=== PATIENT | female | born 1955 | race Caucasian/White ===

== ENCOUNTER → 2018-08-15 | Outpatient (CLI) | payer MEDICARE, OTHER ==
[~2018-08-15] MED LIST: ACET650SUP PR; ACIDOPHILUS1 EAC1 PO; ALBU90I INH; ASCO500 PO; ASPI325; BUME2 PO; BUPR150T2 PO; CEPH500 PO; CLOP75 PO; CYAN1000 PO; DULO60 PO; Diclofenac Pota50 MG PO; ESCI20 PO; FURO20; FURO20 PO; FURO40; HEPARIN SQ; HYDACE10 PO; HYDACE5; HYDACE5 PO; HYDCHL25; IBUP800; LEVSOD100 PO; LEVSOD125 PO; LIDO5TP TOP; LORA1 PO; Lasix20 MG PO; METO100ER PO; MISO200 PO; MOMENI; MONT10T PO; MULVITA; Norco 10-325 T1 EACH PO; OXAP600 PO; PANT40 PO; POTCHL20ER; POTCHL20ER PO; RXSULTRIDS PO; SULTRIDS PO; TETR250 PO; VARE1 PO; VIBERZI75 MG PO; VITS
== END | disposition home or self-care (01) ==
LOC: LAB SHORT 13:45 → LAB 13:45 → LAB FUT 07-23 15:30
DX: K52.9 Noninfective gastroenteritis and colitis, unspecified (principal)
CPT/HCPCS: 87493

== ENCOUNTER → 2018-08-16 | Outpatient (CLI) | payer MEDICARE, OTHER | END | disposition home or self-care (01) | LOC: LAB SHORT 18:00 → LAB 18:00 | DX: K52.9 Noninfective gastroenteritis and colitis, unspecified (principal) | CPT/HCPCS: 87015; 87045; 87046; 87205; 87899 ==

== ENCOUNTER → 2018-08-22 | Outpatient (CLI) | payer MEDICARE, OTHER | END | disposition home or self-care (01) | LOC: LAB 09:00 → LAB SHORT 09:00 | DX: K52.9 Noninfective gastroenteritis and colitis, unspecified (principal) | CPT/HCPCS: 87177; 87209 ==

== ENCOUNTER 2019-03-27 16:17 | Observation (INO) | payer MEDICARE, OTHER ==
[~2019-03-27] VITALS: Ht 162.6 cm; Wt 142.2 kg
[2019-03-27 17:09] LABS: BASOPHILS ABSOLUTE AUTO 0.02 K/mm3 (0.00-0.23); BASOPHILS PERCENT AUTO 0 % (0-2); EOSINOPHILS ABSOLUTE AUTO 0.15 K/mm3 (0.00-0.68); EOSINOPHILS PERCENT AUTO 3 % (0-6); Hematocrit 44.7 % (33.0-51.0); Hemoglobin 13.4 g/dL (11.5-16.0); IMMATURE GRAN ABSOLUTE AUTO 0.05 K/mm3 (0.00-0.10); IMMATURE GRAN PERCENT AUTO 1 % (0-1); LYMPHOCYTES ABSOLUTE AUTO 0.24 K/mm3 (0.84-5.20); LYMPHOCYTES PERCENT AUTO 4 % (21-46); MONOCYTES ABSOLUTE AUTO 0.22 K/mm3 (0.16-1.47); MONOCYTES PERCENT AUTO 4 % (4-13); Mean Corpuscular HGB 28.3 pg (26.0-34.0); Mean Corpuscular Volume 94 fL (80-100); Mean Platelet Volume 11.9 fL (9.1-12.4); NEUTROPHILS PERCENT AUTO 89 % (41-73); Platelet Count 158 K/mm3 (150-400); RDW Coefficient Variation 18.9 % (11.7-14.2); RDW Standard Deviation 65.8 fL (35.1-46.3); Red Blood Cell Count 4.74 M/mm3 (3.80-5.20); White Blood Cell Count 5.98 K/mm3 (4.00-11.30)
[2019-03-27 17:37] LABS: Albumin, Blood 2.6 g/dL (3.4-5.0); Albumin/Globulin Ratio 0.6 (0.8-1.8); Bun/Creatinine Ratio 16.8 (12.0-20.0); Calcium, Blood 7.9 mg/dL (8.5-10.1); Creatinine, Blood 1.25 mg/dL (0.40-1.00); Globulin, Blood 4.4 g/dL (2.2-4.0)
[2019-03-27 18:01] LABS: Source, Urine Catheter
[2019-03-27 18:07] LABS: Bilirubin, Urine Neg (Neg); Blood, Urine 1+ (Neg); Glucose Qualitative, Urine Neg (Neg); Ketones, Urine Neg (Neg); Leukocyte Esterase, Urine 3+ (Neg); Nitrite, Urine Neg (Neg); Protein, Urine 1+ (Neg); Urobilinogen, Urine 1+ (Normal); pH, Urine 6.5 (5.0-8.0)
[2019-03-27 18:15] LABS: Appearance, Urine Clear (Clear); Color, Urine Yellow (P-Yellow); Squamous Epithelial Cells Mod /hpf (Few); White Blood Cells, Urine 50-100 /hpf (0-5)
[2019-03-27 18:16] LABS: Bacteria Few /hpf
[2019-03-27] MEDS ORDERED: Silvadene20 GM TOP (21:39)
[2019-03-28 05:23] LABS: BASOPHILS ABSOLUTE AUTO 0.02 K/mm3 (0.00-0.23); BASOPHILS PERCENT AUTO 0 % (0-2); EOSINOPHILS ABSOLUTE AUTO 0.38 K/mm3 (0.00-0.68); EOSINOPHILS PERCENT AUTO 9 % (0-6); Hematocrit 40.9 % (33.0-51.0); IMMATURE GRAN ABSOLUTE AUTO 0.03 K/mm3 (0.00-0.10); IMMATURE GRAN PERCENT AUTO 1 % (0-1); LYMPHOCYTES ABSOLUTE AUTO 0.24 K/mm3 (0.84-5.20); LYMPHOCYTES PERCENT AUTO 5 % (21-46); MONOCYTES ABSOLUTE AUTO 0.24 K/mm3 (0.16-1.47); MONOCYTES PERCENT AUTO 5 % (4-13); Mean Corpuscular HGB Conc 29.3 g/dL (31.5-36.5); Mean Corpuscular Volume 96 fL (80-100); Mean Platelet Volume 12.4 fL (9.1-12.4); NEUTROPHILS ABSOLUTE AUTO 3.56 K/mm3 (1.96-9.15); NEUTROPHILS PERCENT AUTO 80 % (41-73); Platelet Count 152 K/mm3 (150-400); RDW Standard Deviation 67.4 fL (35.1-46.3); Red Blood Cell Count 4.28 M/mm3 (3.80-5.20); White Blood Cell Count 4.47 K/mm3 (4.00-11.30)
[2019-03-28 05:32] LABS: Bun/Creatinine Ratio 20.2 (12.0-20.0); Calcium, Blood 7.7 mg/dL (8.5-10.1); Creatinine, Blood 1.09 mg/dL (0.40-1.00); Potassium, Blood 4.6 mmol/L (3.5-5.5)
--- NOTE | 2019-03-28 06:44 | NUR ---
SHIFT SUMMARY PT ARRIVED TO ROOM APPROX 2100. CASTRO DRAINING. WORE CPAP WITH 2-3L O2 BLED IN. C/O PAIN IN LEGS X1 AND MEDICATED PER EMAR. SHE WAS ABLE TO SLEEP T/O NIGHT. CALL LIGHT IN REACH.
[2019-03-28] MEDS ORDERED: ALBU90OI6 INH (11:37)
--- NOTE | 2019-03-28 13:35 | NUR ---
DISCHARGE NOTE PT DISCHARGED VIA W/C WITH [facility] TO HOME. IV DISCONTINUED INTACT. PT VERBALIZED UNDERSTANDING OF DISCHARGE INSTRUCTIONS AND IMPORTANCE OF FOLLOWING UP WITH HER PCP.
== END 2019-03-28 13:35 | disposition home or self-care (01) ==
LOC: ER 16:17 → MEDS 16:18 → ENPENDDIS 03-28 10:30 → MEDS 03-28 13:35
PROVIDERS: Internal Medicine; ADMIT Hospitalist
DX: L25.9 Unspecified contact dermatitis, unspecified cause (principal); E11.9 Type 2 diabetes mellitus without complications; J44.9 Chronic obstructive pulmonary disease, unspecified; I11.0 Hypertensive heart disease with heart failure; I50.30 Unspecified diastolic (congestive) heart failure; E03.9 Hypothyroidism, unspecified; F17.210 Nicotine dependence, cigarettes, uncomplicated; E66.01 Morbid (severe) obesity due to excess calories; Z68.43 Body mass index [BMI] 50.0-59.9, adult; Z79.82 Long term (current) use of aspirin; Z79.51 Long term (current) use of inhaled steroids; Z79.1 Long term (current) use of non-steroidal anti-inflammatories (NSAID); Z79.899 Other long term (current) drug therapy; Z88.2 Allergy status to sulfonamides; Z91.040 Latex allergy status
CPT/HCPCS: 36415; 51702; 71045; 80048; 80053; 81001; 83605; 84145; 85025; 85651; 87040; 87077; 87086; 87186; 93005; 93010; 94660; 94762; 96361-59; 96365-59; 96372; 96376; 99285-25; A9270-GY; G0378; J1650; J3370; J7050; J7120

== ENCOUNTER 2019-04-03 02:55 | Emergency (ER) | payer MEDICARE, OTHER ==
[~2019-04-03] VITALS: Ht 162.6 cm; Wt 145.2 kg
[~2019-04-03 02:55] MED LIST changes: +ALBU90OI6 INH; +Silvadene20 GM TOP
== END 2019-04-03 04:37 | disposition home or self-care (01) ==
LOC: ER 02:55
DX: R53.1 Weakness (principal); J44.9 Chronic obstructive pulmonary disease, unspecified; I50.9 Heart failure, unspecified; E66.01 Morbid (severe) obesity due to excess calories; G47.30 Sleep apnea, unspecified; F17.210 Nicotine dependence, cigarettes, uncomplicated; Z88.2 Allergy status to sulfonamides; Z91.040 Latex allergy status; Z79.82 Long term (current) use of aspirin; Z79.51 Long term (current) use of inhaled steroids; Z79.899 Other long term (current) drug therapy
CPT/HCPCS: 99284

== ENCOUNTER → 2019-10-14 | Outpatient (CLI) | payer MEDICARE, OTHER | END | disposition home or self-care (01) | LOC: LAB 18:57 → LAB SHORT 18:57 | DX: L02.511 Cutaneous abscess of right hand (principal) | CPT/HCPCS: 87070; 87075; 87205 ==

== ENCOUNTER → 2019-12-16 | Outpatient (CLI) | payer MEDICARE, OTHER | END | disposition home or self-care (01) | LOC: LAB SHORT 18:18 → PLD 18:18 | DX: L60.0 Ingrowing nail (principal) | CPT/HCPCS: 87070; 87205 ==

== ENCOUNTER 2020-08-05 17:22 | Inpatient (IN) | payer MEDICARE, OTHER ==
[~2020-08-05] VITALS: Ht 160 cm; Wt 144.1 kg
[~2020-08-05 17:22] MED LIST changes: -ASPI325; +Aspirin EC81 MG PO
[2020-08-05 18:38] LABS: BASOPHILS ABSOLUTE AUTO 0.05 K/mm3 (0.00-0.23); BASOPHILS PERCENT AUTO 1 % (0-2); EOSINOPHILS ABSOLUTE AUTO 0.07 K/mm3 (0.00-0.68); EOSINOPHILS PERCENT AUTO 1 % (0-6); Hematocrit 43.5 % (33.0-51.0); Hemoglobin 12.7 g/dL (11.5-16.0); IMMATURE GRAN PERCENT AUTO 2 % (0-1); LYMPHOCYTES ABSOLUTE AUTO 0.88 K/mm3 (0.84-5.20); LYMPHOCYTES PERCENT AUTO 15 % (21-46); MONOCYTES ABSOLUTE AUTO 0.53 K/mm3 (0.16-1.47); MONOCYTES PERCENT AUTO 9 % (4-13); Mean Corpuscular HGB 29.8 pg (26.0-34.0); Mean Corpuscular HGB Conc 29.2 g/dL (31.5-36.5); Mean Corpuscular Volume 102 fL (80-100); NEUTROPHILS ABSOLUTE AUTO 4.12 K/mm3 (1.96-9.15); NEUTROPHILS PERCENT AUTO 72 % (41-73); Platelet Count 168 K/mm3 (150-400); Red Blood Cell Count 4.26 M/mm3 (3.80-5.20); White Blood Cell Count 5.75 K/mm3 (4.00-11.30)
[2020-08-05 18:59] LABS: Alanine Aminotransfer (ALT/SGP 12 U/L (12-78); Albumin, Blood 2.7 g/dL (3.4-5.0); Albumin/Globulin Ratio 0.6 (0.8-1.8); Alk Phos 94 U/L (50-136); Anion Gap -2 mmol/L (6-16); Aspartate Aminotrans (AST/SGOT 10 U/L (12-37); Bilirubin, Total 0.7 mg/dL (0.1-1.0); Blood Urea Nitrogen 53 mg/dL (8-24); Bun/Creatinine Ratio 29.8 (12.0-20.0); CO2, Blood 31 mmol/L (21-32); Calcium, Blood 8.2 mg/dL (8.5-10.1); Chloride, Blood 107 mmol/L (98-108); Creatinine, Blood 1.78 mg/dL (0.40-1.00); Globulin, Blood 4.7 g/dL (2.2-4.0); Glomerular Filtration Rate 30 (60-); Glucose, Blood 98 mg/dL (70-99); Potassium, Blood 5.3 mmol/L (3.5-5.5); Sodium, Blood 136 mmol/L (136-145); Total Protein, Blood 7.4 g/dL (6.4-8.2); Troponin I <0.015 ng/mL (0.000-0.040)
[2020-08-05 19:21] LABS: Source, Urine Clean Catch
[2020-08-05 19:25] LABS: Appearance, Urine Cloudy (Clear); Blood, Urine 2+ (Neg); Color, Urine Yellow (P-Yellow); Glucose Qualitative, Urine Neg (Neg); Ketones, Urine 1+ (Neg); Leukocyte Esterase, Urine 2+ (Neg); Nitrite, Urine Pos (Neg); Protein, Urine 2+ (Neg); Urobilinogen, Urine 1+ (Normal)
[2020-08-05 19:57] LABS: Bilirubin, Urine 1+ (Neg)
[2020-08-05 20:00] LABS: Bacteria Many /hpf; Squamous Epithelial Cells Many /hpf (Few)
[2020-08-05] MEDS ORDERED: ENTRESTO 24 MG1 EAC3 PO (21:21)
[2020-08-05] MEDS ORDERED: FUROSEMIDE20 MG PO (21:22)
[2020-08-05] MEDS ORDERED: PANTOPRAZOLE SO40 M2 PO (21:22)
[2020-08-05] MEDS ORDERED: VIBERZI100 MG PO (21:22)
[2020-08-05] MEDS ORDERED: SYNTHROID125 MC1 PO (21:23)
[2020-08-05] MEDS ORDERED: MONT10T PO (21:23)
[2020-08-05] MEDS ORDERED: ESCI20 PO (21:23)
[2020-08-05] MEDS ORDERED: Potassium Chlo20 ME1 PO (21:26)
[2020-08-05 21:52] LABS: PO2 Arterial 69.2 mmHg (80-100)
[2020-08-05 21:53] LABS: PCO2 Arterial 88.7 mmHg (35-45); pH Blood Arterial 7.17 (7.35-7.45)
--- NOTE | 2020-08-06 02:32 | NUR ---
ASSUMED CARE OF PATIENT AT APPROXIMATELY 2330 FROM ED MIRI BARRIENTOS. PATIENT ARRIVED TO UNIT VIA STRETCHER WITH BIPAP IN PLACE. PATIENT TRANSFER VIA MAX ASSIST AND SLIDE SHEET FROM ED TO PCU STRETCHER. PATIENT ALERT AND ORIENTED; DROWSY AT TIMES. PATIENT REPORTS CHORNIC N/T IN LEGS AND CHRONIC PAIN; FALLS ASLEEP MID SENTENCE AT TIMES. PATIENT DENIES DIZZINESS OR NAUSEA. AFIB ON TELE; OXYGEN SATURATION ABOVE 90% ON BIPAP 45% FIO2 OR 3LPM NC FOR BREAKS FOR ORAL CARE. ASHLEY AREA CLEANED; EXCORIATED; REPORTS SHE IS CHARIFAST AT HOME; HER PADS ARE "CHANGED TWICE A DAY"; H/H CAREGIVERS COME IN TO MAKE HER MEALS. ADMISSION COMPLETE. PIV S/L. PHOTOS OF COCCYX TAKEN AND PLACED IN CHART. PATIENT CURRENTLY RESTING IN BED; CALL LIGHT IN REACH; BED IN LOWEST POSISTION; BED ALARM ON.
[2020-08-06 06:36] LABS: Bun/Creatinine Ratio 32.9 (12.0-20.0); Creatinine, Blood 1.4 mg/dL (0.40-1.00); Potassium, Blood 5.1 mmol/L (3.5-5.5)
--- NOTE | 2020-08-06 06:43 | NUR ---
PATIENT SLEPT ABOUT FIVE HOURS WITH BIPAP IN PLACE; SMALL BREAKS FOR PILLS AND SIPS OF WATER. NO ACUTE CHANGES; INCONTINENT OF WATER. VSS
--- NOTE | 2020-08-06 10:00 | NUR ---
PT ALERT AND ORIENTED X3-4. CONFUSED ON DATE AND TIME. ON BIPAP MOST OF THE MORNING AT 35% FIO2 AND SATING AROUND 93-94%. TAKING BREAKS WITH THE NASAL CANNULA AT 3L FOR MORNING MEDICATIONS, AND CT SCAN. TELE SHOWING AFIB WITH HR 80-90'S. DENIES CHEST PAIN/PRESSURE. INCONTINENT, ATTENDS IN PLACE. BED BATH GIVEN THIS AM. ABLE TO TAKE PILLS WHOLE WITH WATER. COMPLAINS OF JOINT PAIN, MEDICATED PER EMAR WITH GOOD RELIEF. PRESSURE ULCER ON COCCYX, ALLYVEN DRESSING IN PLACE. NEURO WNL. EXCORIATION/REDNESS TO ASHLEY AREA AND INNER THIGHS. Q2 TURNING AND NEEDED. VITAL SIGNS STABLE. WILL CONTINUE TO MONITOR.
--- NOTE | 2020-08-06 17:58 | NUR ---
PATIENT MOVED TO PCU 1 FOR LIFT ROOM. ALERT AND ORIENTED X3-4. CONFUSED AT TIMES. SLIGHTLY FORGETFUL. TELE SHOWING AFIB WITH HR 80-90'S. DENIES CHEST PAIN. ATTENDS IN PLACE. Q2 TURNING. EATING WELL. USING CALL LIGHT APPROPRIATLY. NASAL CANNULA AT 3 L SATING AT 93-94% FOR THE MAJORITY OF THE AFTERNOON. PT MOVED TO BIPAP WHEN FALLING ASLEEP. BIPAP SETTINGS AT 35% FIO2. SISTER FLORESITA IN TO VISIT WITH PATIENT. DISCUSSIONS ABOUT HOME HEALTH AND THE NEED OF FINDING MORE HELP AT HOME. SOCIAL SERVICE CONSULT IN PLACE. VITAL SIGNS STABLE. NO ACUTE CHANGES. WILL CONTINUE TO MONITOR AND REPORT OFF.
[2020-08-07 03:23] LABS: Base Excess Venous 6.6 mmol/L; Bicarbonate Venous 29.3 mmol/L (24.0-30.0); PCO2 Venous 50.8 mmHg (38-42); PO2 Venous 105 mmHg (38-42)
--- NOTE | 2020-08-07 04:02 | NUR ---
SHIFT SUMMARY PT WAS ALERT AND ORIENTED WITH MILD CONFUSION AT TIMES. SPEECH WAS SOFT AND DIFFICULT TO UNDERSTAND. PER REPORT, PT IS ABOUT AT BASELINE. PT WAS ON BIPAP T/O MOST OF THE NIGHT AT 18/6 AND 35% FIO2 WITH O2 SATS >92%. PT WOULD DESAT TO 80'S WHEN OFF OF O2. BP 137-115 SYSTOLIC. HR 80-90'S. PERIWICK TO SUCTION IN PLACE AND PT ABLE TO STAY DRY T/O THE NIGHT WITH Q2H ASHLEY CHECKS/CARE AND TURNS. PT HAD A QUIET UNEVENTFUL NIGHT WITH IMPROVEMENT.
[2020-08-07 04:22] LABS: BASOPHILS ABSOLUTE AUTO 0.05 K/mm3 (0.00-0.23); BASOPHILS PERCENT AUTO 1 % (0-2); EOSINOPHILS PERCENT AUTO 0 % (0-6); Hematocrit 42.2 % (33.0-51.0); Hemoglobin 12.5 g/dL (11.5-16.0); IMMATURE GRAN ABSOLUTE AUTO 0.14 K/mm3 (0.00-0.10); IMMATURE GRAN PERCENT AUTO 3 % (0-1); LYMPHOCYTES ABSOLUTE AUTO 0.36 K/mm3 (0.84-5.20); LYMPHOCYTES PERCENT AUTO 7 % (21-46); MONOCYTES ABSOLUTE AUTO 0.17 K/mm3 (0.16-1.47); MONOCYTES PERCENT AUTO 3 % (4-13); Mean Corpuscular HGB 30.3 pg (26.0-34.0); Mean Corpuscular HGB Conc 29.6 g/dL (31.5-36.5); Mean Corpuscular Volume 102 fL (80-100); Mean Platelet Volume 11.8 fL (9.1-12.4); NEUTROPHILS ABSOLUTE AUTO 4.63 K/mm3 (1.96-9.15); NEUTROPHILS PERCENT AUTO 87 % (41-73); NRBC ABSOLUTE 0.03 K/mm3 (0.00-0.02); NRBC Auto 0.6 /100 WBC (0.0-0.2); Platelet Count 167 K/mm3 (150-400); RDW Coefficient Variation 15.9 % (11.7-14.2); Red Blood Cell Count 4.12 M/mm3 (3.80-5.20); White Blood Cell Count 5.35 K/mm3 (4.00-11.30)
[2020-08-07 04:49] LABS: Bun/Creatinine Ratio 37.4 (12.0-20.0); Creatinine, Blood 1.23 mg/dL (0.40-1.00); Potassium, Blood 5.2 mmol/L (3.5-5.5)
--- NOTE | 2020-08-07 11:08 | NUR ---
PT ALERT AND ORIENTED X4 THIS AM, SLIGHTLY CONFUSED UPON WAKING UP. NEURO WNL. COMPLAINS OF JOINT PAIN, MEDICATED PER EMAR. ON 3L NASAL CANNULA SATING AT 93-94%. WEARING BIPAP WHEN SLEEPING AT 18/6 AND 35% FIO2. PHONE CALL PLACED TO SISTER TO INQUIRE ABOUT HOME BIPAP SETTINGS. TELE SHOWING AFIB WITH HR 80'S. DENIES CHEST PAIN. ATTENDS IN PLACE. Q2 TURNING. ACHS BLOOD SUGARS. DR. CLEMENTE IN THIS MORNING. VITAL SIGNS STABLE. WILL CONTINUE TO MONITOR.
--- NOTE | 2020-08-07 13:51 | NUR ---
SPOKE WITH SISTER FLORESITA ON THE PHONE. FLORESITA ABLE TO BRING IN HOME BIPAP TO ASSESS HOME SETTINGS AND BASELINE.
--- NOTE | 2020-08-07 16:27 | NUR ---
Patient and her sister wanted information on power of assistant prosecuting attorney and advance care planning. Review of poa need for a will, advance directive and polst. Brief review of recusitaion and life support. Review of need for a polst to have for when EMS comes to her home. They want to discuss it then talk some more. Gave them the hard choices for loving families booklet to review. Will also try to find a good time to speak with patient alone.
--- NOTE | 2020-08-07 19:23 | NUR ---
SHIFT SUMMARY: NO ACUTE CHANGES, SEE PREVIOUS NOTE. HOME BIPAP BROUGHT IN AND RT AWARE. SISTER FLORESITA INTO VISIT AND RECIEVED INFORMATION ON ADVANCED DIRECTIVE AND POWER OF CHANNEL MACHINE OPERATOR. VITAL SIGNS REMAIN STABLE. Q2 TURNING AND NEEDED. PT EATING WELL AND USING CALL LIGHT APPROPRIATLY. INTERMITTENT COUGH WITH SMALL AMOUNT OF PRODUCTIVE SPUTUM. WEARING 2-3L NASAL CANNULA THROUGHOUT THE DAY AND BIPAP WITH 35%FIO2 AT 18/6 NEEDED WHEN FALLING ASLEEP. REPORTED OFF TO OBSTETRICS AND GYNECOLOGY PROFESSOR RN.
--- NOTE | 2020-08-08 05:42 | NUR ---
SHIFT SUMMARY PT IS ALERT AND ORIENTED WITH SOME CONFUSION AT TIME. THERE HAVE BEEN NO ACUTE CHANGES.PT DENIES CHEST PAIN AND SOB. VITALS ARE STABLE WITH SATS ABOVE 89% ON 3L NC. HAS USED HOME BIPAP AT NIGHT WITH 2.5L BLEED IN WITH NO CHANGES TO SATS. PT IS A MAX ASSIST AND LIFT IS NEEDED. PT IS INCONT AND ATTENDS IN PLACE. CALL LIGHT IS WITHIN REACH AND SHE IS ABLE TO USE IT APPROPRIETLY.
--- NOTE | 2020-08-08 15:06 | NUR ---
CASE MANAGMENT IS QUESTIONING WHETHER OR NOT PT HAS A PUREWICK CATH IN PLCAE. UPON MY ASSESSMENT THIS AM PT HAS ATTENDS IN PLACE, SHE HAS BEEN CHANGED Q2 HRS & PRN.
[2020-08-08] MEDS ORDERED: CEPH500 PO (15:46)
[2020-08-08] MEDS ORDERED: IPRAT-ALBUT 0.5-3 ML INH (15:48)
[2020-08-08] MEDS ORDERED: NICODERM CQ TOP (15:50)
[2020-08-08] MEDS ORDERED: PRED20 PO (15:50)
[2020-08-08] MEDS ORDERED: AIRDUO RESPICL1 EAC4 INH (15:51)
[2020-08-08 16:31] LABS: Influenza A, PCR NEGATIVE (NEGATIVE); Influenza B, PCR NEGATIVE (NEGATIVE); Resp Syncytial Virus, PCR NEGATIVE (NEGATIVE); SARS-Cov-2 (COVID-19) PCR, MMC NEGATIVE (NEGATIVE)
--- NOTE | 2020-08-08 17:34 | NUR ---
SUMMARY NO ACUTE CHANGES NOTED THROUGH THE DAY. PT IS TOLERATING PO INTAKE, VOIDING WNL, VSS. PT IS ON 2 L VIA NC WHILE AWAKE AND WILL PLACE HOME BIPAP WHILE SLEEPING. PT IS BEING TRANSFERED TO [facility] THIS EVENING. REPORT CALLED TO NURSE @ 1720. D/C PACKET TOGETHER, HYDROCODONE RX INCLUDED IN PACKET. PT'S SISTER IS AT THE BEDSIDE. PT SIGNED ADVANCED DIRECTIVE/POLST WITH SISTER AT THE BEDSIDE TODAY. WCTM UNTIL TRANSPORT TEAM ARRIVES. PT IS SITTING UP IN BED EATING DINNER AT THIS TIME. CALL LIGHT IN REACH.
--- NOTE | 2020-08-08 17:46 | NUR ---
Spiritual care note: Advanced Directive and durable POA completed and notarized. Pt's sister, Arlette, named as decision-maker/POA. Copies made for family. Pt expects to be discharge this afternoon to SNF. She is hoping for complete recovery and return to independant living.
== END 2020-08-08 18:55 | DRG 189 ==
LOC: ER 17:22 → PCU 23:07
PROVIDERS: Internal Medicine; Physician Assistant; ADMIT Internal Medicine
DX: J96.21 Acute and chronic respiratory failure with hypoxia (principal); N17.9 Acute kidney failure, unspecified; J44.1 Chronic obstructive pulmonary disease with (acute) exacerbation; N39.0 Urinary tract infection, site not specified; I50.32 Chronic diastolic (congestive) heart failure; Z68.43 Body mass index [BMI] 50.0-59.9, adult; J96.22 Acute and chronic respiratory failure with hypercapnia; N18.30 Chronic kidney disease, stage 3 unspecified; Z20.822 Contact with and (suspected) exposure to COVID-19; E66.01 Morbid (severe) obesity due to excess calories; I27.20 Pulmonary hypertension, unspecified; G47.33 Obstructive sleep apnea (adult) (pediatric); B96.20 Unspecified Escherichia coli [E. coli] as the cause of diseases classified elsewhere; F17.210 Nicotine dependence, cigarettes, uncomplicated; Z99.81 Dependence on supplemental oxygen; Z88.2 Allergy status to sulfonamides; Z91.040 Latex allergy status; Z79.82 Long term (current) use of aspirin
CPT/HCPCS: 0241U; 36415; 36600; 70450; 71046; 80048; 80053; 81001; 82803; 82947; 83880; 84484; 85025; 87077; 87086; 87186; 93005; 93010; 94640; 94660; 94762; 96365; 96375; 97110; 97162; 97166; 97530; 99285-25; A9270; A9270-GY; C8929; J0696; J1644; J2310; J2930; Q9957

== ENCOUNTER 2020-10-21 19:59 | Emergency (ER) | payer MEDICARE, OTHER ==
[~2020-10-21] VITALS: Ht 162.6 cm; Wt 118.8 kg
[~2020-10-21 19:59] MED LIST changes: +AIRDUO RESPICL1 EAC4 INH; +ENTRESTO 24 MG1 EAC3 PO; +FUROSEMIDE20 MG PO; +IPRAT-ALBUT 0.5-3 ML INH; +NICODERM CQ TOP; +PANTOPRAZOLE SO40 M2 PO; +PRED20 PO; +Potassium Chlo20 ME1 PO; +SYNTHROID125 MC1 PO; +VIBERZI100 MG PO
[2020-10-21 20:31] LABS: BASOPHILS ABSOLUTE AUTO 0.03 K/mm3 (0.00-0.23); BASOPHILS PERCENT AUTO 0 % (0-2); EOSINOPHILS ABSOLUTE AUTO 0.32 K/mm3 (0.00-0.68); EOSINOPHILS PERCENT AUTO 3 % (0-6); Hematocrit 37.6 % (33.0-51.0); Hemoglobin 11.3 g/dL (11.5-16.0); IMMATURE GRAN ABSOLUTE AUTO 0.09 K/mm3 (0.00-0.10); IMMATURE GRAN PERCENT AUTO 1 % (0-1); LYMPHOCYTES ABSOLUTE AUTO 0.82 K/mm3 (0.84-5.20); LYMPHOCYTES PERCENT AUTO 7 % (21-46); MONOCYTES ABSOLUTE AUTO 0.68 K/mm3 (0.16-1.47); MONOCYTES PERCENT AUTO 6 % (4-13); Mean Corpuscular HGB 29.3 pg (26.0-34.0); Mean Corpuscular HGB Conc 30.1 g/dL (31.5-36.5); Mean Corpuscular Volume 97 fL (80-100); NEUTROPHILS ABSOLUTE AUTO 9.71 K/mm3 (1.96-9.15); NEUTROPHILS PERCENT AUTO 83 % (41-73); Platelet Count 285 K/mm3 (150-400); RDW Coefficient Variation 15.3 % (11.7-14.2); RDW Standard Deviation 54.2 fL (35.1-46.3); Red Blood Cell Count 3.86 M/mm3 (3.80-5.20); White Blood Cell Count 11.65 K/mm3 (4.00-11.30)
[2020-10-21 20:49] LABS: Alanine Aminotransfer (ALT/SGP 14 U/L (12-78); Albumin, Blood 2.7 g/dL (3.4-5.0); Albumin/Globulin Ratio 0.6 (0.8-1.8); Alk Phos 95 U/L (50-136); Anion Gap 2 mmol/L (6-16); Aspartate Aminotrans (AST/SGOT 13 U/L (12-37); Bilirubin, Total 0.7 mg/dL (0.1-1.0); Blood Urea Nitrogen 17 mg/dL (8-24); CO2, Blood 33 mmol/L (21-32); Calcium, Blood 8.8 mg/dL (8.5-10.1); Chloride, Blood 104 mmol/L (98-108); Creatinine, Blood 0.85 mg/dL (0.40-1.00); Globulin, Blood 4.8 g/dL (2.2-4.0); Glomerular Filtration Rate >60 (60-); Glucose, Blood 111 mg/dL (70-99); Potassium, Blood 3.9 mmol/L (3.5-5.5); Sodium, Blood 139 mmol/L (136-145); Total Protein, Blood 7.5 g/dL (6.4-8.2)
[2020-10-21] MEDS ORDERED: LOPE2C PO (22:17)
[2020-10-21] MEDS ORDERED: ONDA4ODT MM (22:17)
== END 2020-10-21 23:47 | disposition home or self-care (01) ==
LOC: ER 19:59
PROVIDERS: Emergency Medicine
DX: R11.2 Nausea with vomiting, unspecified (principal); R19.7 Diarrhea, unspecified; J44.9 Chronic obstructive pulmonary disease, unspecified; I50.9 Heart failure, unspecified; F17.210 Nicotine dependence, cigarettes, uncomplicated; Z79.82 Long term (current) use of aspirin; Z79.899 Other long term (current) drug therapy
CPT/HCPCS: 80053; 83690; 85025; 93005; 93010; 96374; 99284-25; J2405; J7030

== ENCOUNTER 2021-05-20 16:42 | Inpatient (IN) | payer MEDICARE, OTHER ==
[~2021-05-20] VITALS: Ht 162.6 cm; Wt 117.5 kg
[~2021-05-20 16:42] MED LIST changes: +LOPE2C PO; +ONDA4ODT MM
[2021-05-20 17:11] LABS: BASOPHILS ABSOLUTE AUTO 0.02 K/mm3 (0.00-0.23); BASOPHILS PERCENT AUTO 0 % (0-2); EOSINOPHILS ABSOLUTE AUTO 0.04 K/mm3 (0.00-0.68); EOSINOPHILS PERCENT AUTO 1 % (0-6); Hematocrit 41.5 % (33.0-51.0); Hemoglobin 12.6 g/dL (11.5-16.0); IMMATURE GRAN ABSOLUTE AUTO 0.05 K/mm3 (0.00-0.10); IMMATURE GRAN PERCENT AUTO 1 % (0-1); LYMPHOCYTES ABSOLUTE AUTO 0.77 K/mm3 (0.84-5.20); LYMPHOCYTES PERCENT AUTO 14 % (21-46); MONOCYTES ABSOLUTE AUTO 0.14 K/mm3 (0.16-1.47); MONOCYTES PERCENT AUTO 3 % (4-13); Mean Corpuscular HGB 29.4 pg (26.0-34.0); Mean Corpuscular HGB Conc 30.4 g/dL (31.5-36.5); Mean Corpuscular Volume 97 fL (80-100); Mean Platelet Volume 11.9 fL (9.1-12.4); NEUTROPHILS ABSOLUTE AUTO 4.56 K/mm3 (1.96-9.15); NEUTROPHILS PERCENT AUTO 82 % (41-73); Platelet Count 127 K/mm3 (150-400); RDW Coefficient Variation 15.6 % (11.7-14.2); RDW Standard Deviation 55.8 fL (35.1-46.3); Red Blood Cell Count 4.28 M/mm3 (3.80-5.20); White Blood Cell Count 5.58 K/mm3 (4.00-11.30)
[2021-05-20 17:30] LABS: Albumin, Blood 2.7 g/dL (3.4-5.0); Albumin/Globulin Ratio 0.6 (0.8-1.8); Bilirubin, Total 0.4 mg/dL (0.1-1.0); Calcium, Blood 7.7 mg/dL (8.5-10.1); Creatinine, Blood 1.04 mg/dL (0.40-1.00); Globulin, Blood 4.8 g/dL (2.2-4.0); Potassium, Blood 4.8 mmol/L (3.5-5.5); Total Protein, Blood 7.5 g/dL (6.4-8.2)
[2021-05-20 17:56] LABS: Influenza A, PCR NEGATIVE (NEGATIVE); Influenza B, PCR NEGATIVE (NEGATIVE); Resp Syncytial Virus, PCR NEGATIVE (NEGATIVE)
[2021-05-20 17:59] LABS: SARS-Cov-2 (COVID-19) PCR, MMC POSITIVE (NEGATIVE)
[2021-05-20] MEDS ORDERED: POTCHL20ER PO (18:23)
--- NOTE | 2021-05-21 01:23 | NUR ---
PATIENT IS A NEW ADMIT FROM THE ED. AXOX 3 AND FORGETFUL AT TIMES. FOUR PERSON TRANSFER FROM [facility] TO BED. MORBIDLY OBESE. ENHANCED PRECAUTIONS C-19+. ON 5L O2 NC AND DESTAT WITH EXERTION. TURN UP TO 10L O2 FOR RECOVERY. TELEMETRY PLACED AND TECH REPORTS ST 104. REPORTS CEDS. DENIES CHEST PAIN AND N/V. ORIENTED TO ROOM AND CALL LIGHT SYSTEM.
--- NOTE | 2021-05-21 01:26 | NUR ---
RT IN ROOM FOR ASSESSMENT AND BREATHING TX. RT PLACED HER ON V60 SETTING 30% AND STATING 92% ON CONTINUOUS PULSE OXIMETRY.
--- NOTE | 2021-05-21 03:17 | NUR ---
SHIFT SUMMARY PATIENT CONTINUES TO DESTAT ON 4L O2 NC INTO THE LOW 80'S AND RT PLACED BACK ON V60 30% STATING 93% ON CONTINUOUS PULSE OXIMETRY. AXO X 3 AND FORGETFUL AT TIMES PULLING OXYGEN OFF. BEDBOUND MORBIDLY OBESE. USE 2L O2 NC BASELINE. PIV REMAINS INTACT. OCCUPATIONAL NURSE REPORTS ST 104. DENIES CHEST PAIN AND N/V. REPORTS CEDS. VSS/AFEBRILE. PATIENT HAS CAREGIVER X FIVE DAYS/WEEK. RT IN FOR BREATHING TX. CALL LIGHT IN REACH. BED IN LOWEST POSITION. WILL CONTINUE TO MONITOR UNTIL DAY SHIFT NURSE ASSUMES CARE.
[2021-05-21 06:36] LABS: BASOPHILS ABSOLUTE AUTO 0.01 K/mm3 (0.00-0.23); BASOPHILS PERCENT AUTO 0 % (0-2); EOSINOPHILS PERCENT AUTO 0 % (0-6); Hematocrit 42.3 % (33.0-51.0); Hemoglobin 12.6 g/dL (11.5-16.0); IMMATURE GRAN ABSOLUTE AUTO 0.05 K/mm3 (0.00-0.10); IMMATURE GRAN PERCENT AUTO 1 % (0-1); LYMPHOCYTES ABSOLUTE AUTO 0.41 K/mm3 (0.84-5.20); LYMPHOCYTES PERCENT AUTO 7 % (21-46); MONOCYTES ABSOLUTE AUTO 0.21 K/mm3 (0.16-1.47); MONOCYTES PERCENT AUTO 3 % (4-13); Mean Corpuscular HGB 29.2 pg (26.0-34.0); Mean Corpuscular HGB Conc 29.8 g/dL (31.5-36.5); Mean Corpuscular Volume 98 fL (80-100); NEUTROPHILS ABSOLUTE AUTO 5.58 K/mm3 (1.96-9.15); NEUTROPHILS PERCENT AUTO 89 % (41-73); Platelet Count 131 K/mm3 (150-400); RDW Coefficient Variation 15.5 % (11.7-14.2); RDW Standard Deviation 56.4 fL (35.1-46.3); Red Blood Cell Count 4.31 M/mm3 (3.80-5.20); White Blood Cell Count 6.26 K/mm3 (4.00-11.30)
[2021-05-21 06:55] LABS: Albumin, Blood 2.4 g/dL (3.4-5.0); Albumin/Globulin Ratio 0.5 (0.8-1.8); Bilirubin, Total 0.4 mg/dL (0.1-1.0); Bun/Creatinine Ratio 25.5 (12.0-20.0); Calcium, Blood 7.8 mg/dL (8.5-10.1); Creatinine, Blood 1.02 mg/dL (0.40-1.00); Globulin, Blood 5.2 g/dL (2.2-4.0); Total Protein, Blood 7.6 g/dL (6.4-8.2)
--- NOTE | 2021-05-21 15:16 | NUR ---
SHIFT SUMMARY: NO ACUTE EVENTS. O2 @ 5 L/MIN OXYMIZER WITH SATS 88-94%, NEEDS TO WEAR BIPAP WHEN SLEEPING. NO EVENTS ON TELEMETRY, AFIB 80'S. A&O X 4, PLEASANT. INCONTINENT OF BLADDER BUT CONTINENT OF BOWEL, LBM 05/21. C/O GENERALIZED PAIN, NORCO WITH RELIEF. WILL NEED RUTHIE LIFT TO GET OOB TO CHAIR. TOLERATING PO INTAKE.
--- NOTE | 2021-05-21 15:19 | NUR ---
RECEIVED REPORT FROM ALTAGRACIA BEAUCHAMP RN.
--- NOTE | 2021-05-21 16:57 | NUR ---
PATIENT HAS A HOME MEDICATION ON THE MAR WHICH IS NOT PRESENT AT THE HOSPITAL. ASKED PATIENT TO HAVE SOMEONE BRING IT TO THE HOSPITAL AND DROP IT OFF TO THE SCREENERS SO IT CAN BE IDENTIFIED BY THE PHARMACY FOR USE IN THE HOSPITAL. VERBALIZED UNDERSTANDING.
--- NOTE | 2021-05-21 18:06 | NUR ---
RECEIVED A CALL FROM FLORESITA AT [phone] FOR AN UPDATE. WHEN PATIENT WAS ASKED IF IT WAS OK TO UPDATE THIS PERSON SHE STATED SHE WOULD CALL HER BACK HERSELF.
--- NOTE | 2021-05-21 18:47 | NUR ---
RECEIVED REPORT MID AFTERNOON FOR THIS PATIENT. AAO X 4. NO COMPLAINTS VOICED EXCEPT FOR C/O GAS PAIN, MEDICATED PER E-JUN. CONTINUOUS PULSE OX IN USE. O2 SAT RUNNING 89-90% O2 DECREASED PER RESPIRATORY THERAPIST DUE TO PATIENT BEING A CO2 RETAINER AND DOESN'T NEED TO SAT OVER 90%. PATIENT IS ON HOME O2 PRIOR TO ADMIT. TOOK MEDS WHOLE WITHOUT DIFFICULTY. TOLERATED FOOD AND FLUIDS TODAY. WILL MONITOR.
--- NOTE | 2021-05-21 18:52 | NUR ---
@ 1600, CHECKED IN ON PATIENT AFTER RECEIVING REPORT. AAO X 4. O2 IN USE. CPAP AT BEDSIDE ON STANDBY. CONTIUOUS PULSE OX IN USE, CURRENTLY 89%. NO NEEDS VOICED BY PATIENT. ON ISOLATION DUE TO COVID. NO RESPIRATORY DISTRESS NOTED AT THIS TIME. PLEASANT AND COOPERATIVE.
--- NOTE | 2021-05-22 03:18 | NUR ---
SHIFT SUMMARY PATIENT NAUSEOUS X TWO AND IV ZOFRAN GIVEN PER EMAR. AXOX 3 AND BEDREST. ON OXIMIZER 3L O2 STATING 88%-92%. USES V60 BIPAP SETUP BY RT AT 35% STATING 92%-96%. ENHANCED PRECAUTIONS FOR COVID-19+. VSS/AFEBRILE. REPORTED ABDOMINAL PAIN AND SIMETHICONE 80 MG GIVEN PER EMAR. REPORTED ABD/BACK PAIN AND NORCO GIVEN PER EMAR. ANXIOUS T/O SHIFT. CALL LIGHT IN REACH. BED IN LOWEST POSITION. WILL CONTINUE TO MONITOR UNTIL DAY SHIFT NURSE ASSUMES CARE.
--- NOTE | 2021-05-22 12:22 | NUR ---
PT REQUESTED SUPPOSITORY THREE TIMES THIS MORNING; OBTAINED DOCTORS VERBAL ORDER FOR A SUPPOSITORY, BUT THE PT WAS ABLE TO PASS A LARGE, SOFT BM THIS AFTERNOON. THE SUPPOSITORY WAS NOT GIVEN AT THIS TIME. THE PT RECIEVED PERICARE AND A DEPENDS CHANGE. PT LEFT IN ROOM TO FINISH HER BREATHING TREATMENT. CALL LIGHT AT BEDSIDE.
--- NOTE | 2021-05-22 20:06 | NUR ---
PT IS A/OX4, PLEASANT AND COPERATIVE. THE PT THIS AM C/O N/V ZOFRAN WAS GIVEN. THE PT STATED THAT SHE HAD NOT HAD A BM X2 DAYS. THE PT SHORTLY AFTER HAD A LARGE BM AND THEN LATER IN THE AFTERNOON WANTED TO TAKE A SUPPOSITORY. THE PTS O2 SAT'S ARE 92-96% RANGE O2 WAS TITRATED TO 3L/MIN. PT REFUSED ALL MEALS TODAY, HOWEVER TO HAVE SOME BITES OF JELLO. CALL LIGHT IN REACH, WILL CONTINUE TO MONITOR AND ASSESS FOR CHANGES
[2021-05-23 05:33] LABS: BASOPHILS ABSOLUTE AUTO 0.01 K/mm3 (0.00-0.23); BASOPHILS PERCENT AUTO 0 % (0-2); EOSINOPHILS ABSOLUTE AUTO 0.01 K/mm3 (0.00-0.68); EOSINOPHILS PERCENT AUTO 0 % (0-6); Hematocrit 43.5 % (33.0-51.0); Hemoglobin 12.7 g/dL (11.5-16.0); IMMATURE GRAN ABSOLUTE AUTO 0.06 K/mm3 (0.00-0.10); IMMATURE GRAN PERCENT AUTO 1 % (0-1); LYMPHOCYTES ABSOLUTE AUTO 0.71 K/mm3 (0.84-5.20); LYMPHOCYTES PERCENT AUTO 11 % (21-46); MONOCYTES ABSOLUTE AUTO 0.36 K/mm3 (0.16-1.47); MONOCYTES PERCENT AUTO 6 % (4-13); Mean Corpuscular HGB Conc 29.2 g/dL (31.5-36.5); Mean Corpuscular Volume 99 fL (80-100); Mean Platelet Volume 11.9 fL (9.1-12.4); NEUTROPHILS ABSOLUTE AUTO 5.44 K/mm3 (1.96-9.15); NEUTROPHILS PERCENT AUTO 82 % (41-73); Platelet Count 170 K/mm3 (150-400); RDW Coefficient Variation 15.3 % (11.7-14.2); RDW Standard Deviation 56.6 fL (35.1-46.3); Red Blood Cell Count 4.38 M/mm3 (3.80-5.20); White Blood Cell Count 6.59 K/mm3 (4.00-11.30)
--- NOTE | 2021-05-23 05:38 | NUR ---
SHIFT SUMMARY 65 YR fADMITTED ON 05/20/21 FOR HYPOXIA DUE TO COVID. FULL CODE. SHE IS CURRENTLY ON OXIMETER AT 3 L, BUT USES A BIPAP AT NIGHT WHEN SLEEPING. NO ACUTE CHANGES OVERNIGHT. PT SLEPT MOST OF THE NIGHT. SHE IS A&O X 4. INCONTINENT AND CALLS APPROPRIATELY FOR ASSISTANCE.
[2021-05-23 06:23] LABS: Anion Gap 4 mmol/L (6-16); Blood Urea Nitrogen 21 mg/dL (8-24); Bun/Creatinine Ratio 25.6 (12.0-20.0); CO2, Blood 34 mmol/L (21-32); Chloride, Blood 104 mmol/L (98-108); Creatinine, Blood 0.82 mg/dL (0.40-1.00); Glomerular Filtration Rate >60 (60-); Glucose, Blood 99 mg/dL (70-99); Potassium, Blood 4.4 mmol/L (3.5-5.5); Sodium, Blood 142 mmol/L (136-145)
[2021-05-23] MEDS ORDERED: BENZ100A PO (12:24)
[2021-05-23] MEDS ORDERED: DECADRON6 M1 PO (12:25)
[2021-05-23] MEDS ORDERED: GUAI600T33 PO (12:25)
[2021-05-23] MEDS ORDERED: SIME80CH PO (12:25)
--- NOTE | 2021-05-23 19:28 | NUR ---
PT IS A/OX4, PLEASANT AND COOPERATIVE, THE PT IS BEDBOUND UP WITH LIFT. THE PT IS ON 10L/MIN O2 AT THIS TIME. THIS AM THE PT WAS TITRATED DOWN TO 2L/MIN AND HELD O2 SAT'S BETWEEN 88-91% AT 1300 AFTER BREATHING TX'S THE PT REQUIRED O2 MUCH 10L/MIN TO KEEP HER SAT'S > THAN 90%. THE PT WAS MEDICTED FOR PAIN X1 TODAY, THE PT DENIED ANY N/V TODAY. PT WAS UP IN THE CHAIR THIS AFTERNOON THROUGH DINNER. CALL LIGHT IN REACH
[2021-05-24 05:39] LABS: BASOPHILS ABSOLUTE AUTO 0.02 K/mm3 (0.00-0.23); BASOPHILS PERCENT AUTO 0 % (0-2); EOSINOPHILS ABSOLUTE AUTO 0.09 K/mm3 (0.00-0.68); EOSINOPHILS PERCENT AUTO 1 % (0-6); Hematocrit 44.7 % (33.0-51.0); Hemoglobin 13.1 g/dL (11.5-16.0); IMMATURE GRAN ABSOLUTE AUTO 0.05 K/mm3 (0.00-0.10); IMMATURE GRAN PERCENT AUTO 1 % (0-1); LYMPHOCYTES ABSOLUTE AUTO 0.77 K/mm3 (0.84-5.20); LYMPHOCYTES PERCENT AUTO 12 % (21-46); MONOCYTES ABSOLUTE AUTO 0.38 K/mm3 (0.16-1.47); MONOCYTES PERCENT AUTO 6 % (4-13); Mean Corpuscular HGB 29.1 pg (26.0-34.0); Mean Corpuscular HGB Conc 29.3 g/dL (31.5-36.5); Mean Corpuscular Volume 99 fL (80-100); Mean Platelet Volume 11.5 fL (9.1-12.4); NEUTROPHILS ABSOLUTE AUTO 4.97 K/mm3 (1.96-9.15); NEUTROPHILS PERCENT AUTO 79 % (41-73); Platelet Count 149 K/mm3 (150-400); RDW Coefficient Variation 15.5 % (11.7-14.2); RDW Standard Deviation 57.8 fL (35.1-46.3); White Blood Cell Count 6.28 K/mm3 (4.00-11.30)
--- NOTE | 2021-05-24 05:40 | NUR ---
SHIFT SUMMARY PT IS A 65 Y/O FEMALE, ADMITTED FOR ACUTE HYPOXEMIC RESPIRATORY FAILURE. SHE IS A&O X 3, FORGETFUL AT TIMES. PT DENIED ANY C/O PAIN, NAUSEA OR ACUTE SOB. PT CURRENTLY ON 5L O2 VIA NC, DECREASED FROM 10L @ START OF SHIFT. O2 SATS @ 94-95%, THOUGH SHE DOES DESAT TO THE 80S WITH ANY EXERTION. VITAL SIGNS OTHERWISE STABLE. NO OTHER ACUTE CHANGES IN PT CONDITION NOTED DURING THE NIGHT. WILL CONTINUE TO MONITOR AND TREAT PER EMAR UNTIL HAND OFF TO DAY SHIFT RN. PT SISTER FLORESITA WAS CALLED DURING THE NIGHT AND UPDATED ON PT CONDITION WITH PT'S PERMISSION. PT REQUESTED TO BE INFORMED OF PLANS FOR DC. SISTER'S PHONE NUMBER [phone].
[2021-05-24 06:07] LABS: Anion Gap 2 mmol/L (6-16); Blood Urea Nitrogen 16 mg/dL (8-24); Bun/Creatinine Ratio 20.7 (12.0-20.0); CO2, Blood 33 mmol/L (21-32); Chloride, Blood 103 mmol/L (98-108); Creatinine, Blood 0.77 mg/dL (0.40-1.00); Glomerular Filtration Rate >60 (60-); Glucose, Blood 100 mg/dL (70-99); Potassium, Blood 3.7 mmol/L (3.5-5.5); Sodium, Blood 138 mmol/L (136-145)
--- NOTE | 2021-05-24 15:45 | NUR ---
PT TRANSFERED TP PCU BED 1 AT 1500. POWERGLIDE IV STARTED BEFORE TRANSFER. RT ILA ACCOMPANIED THE PT WITH THE TRANSFER
--- NOTE | 2021-05-24 18:00 | NUR ---
SHIFT NOTE PT WAS MOVED FROM MEDICAL FLOOR FOR INCREASING O2 NEEDS, PT TAKEN IMMEDIATLY TO CT UPON ARRIVAL TO PCU FOR PE STUDY. NO PE NOTED ON CT SCAN, BILAT PNA NOTED WITH PLEURAL EFFUSIONS. PT ALERT, DROWSY, FALLS ASLEEP QUICKLY. SHE IS ORIENTED TO SELF, PLACE, AND FAMILY THAT HAD CALLED. O2 NEEDS HAVE NOT CHANGED SINCE ARRIVING TO PCU, VSS. PT ANSWERS QUESTIONS APPROPRIATELY IN SHORT SENTENCES. FAMILY UPDATED, SISTER IS ASKED TO UPDATED FRIEND WHO CALLS FOR UPDATE SISTER IS POINT OF CONTACT. NO CHANGE IN WORK OF BREATHING SINCE ARRIVING. NO SKIN ISSUES NOTED FROM VISUAL EXAM. PT OFFERED CASTRO CATH THAT SHE REFUSED AT THIS TIME, ATTENDS IN PLACE.
[2021-05-24 21:18] LABS: Source, Urine Foley catheter
[2021-05-24 21:25] LABS: Appearance, Urine Hazy (Clear); Bilirubin, Urine Neg (Neg); Blood, Urine 1+ (Neg); Color, Urine Amber (P-Yellow); Glucose Qualitative, Urine Neg (Neg); Ketones, Urine Neg (Neg); Leukocyte Esterase, Urine 3+ (Neg); Nitrite, Urine Pos (Neg); Protein, Urine 2+ (Neg); Specific Gravity, Urine 1.015 (1.003-1.022); Urobilinogen, Urine NORM (Normal)
--- NOTE | 2021-05-24 21:39 | NUR ---
CARE ASSUMPTION PT IS AXO X4 AND ANSWERING QUESTIONS APPROPRIATELY. O2 SATS >90% ON AIRVO 50L W 54% FIO2 BUT PLACED ON CPAP BY RT FOR THE NIGHT. CASTRO CATHETER PLACED PER ORDER THE PT DESATS WHILE FREQUENTLY CHANGING HER FOR INCONTINENT URINE. TELE 90'S AND BP WNL. PT RESTING COMFORTABLY AND DENIES ANY FURTHER NEEDS AT THIS TIME.
[2021-05-24 22:14] LABS: Bacteria Many /hpf; Squamous Epithelial Cells Many /hpf (Few); White Blood Cells, Urine 25-50 /hpf (0-5)
--- NOTE | 2021-05-25 05:52 | NUR ---
HAIR ROOTING MACHINE OPERATOR SUMMARY PT IS AXO X4 AND ANSWERS QUESTIONS APPROPRIATLEY. PT MAINTAINED O2 SATS >90% ON AIRVO 50L W 50% FIO2 WHILE AWAKE. PT PLACED ON CPAP FOR THE NIGHT HOWEVER THE PT WAS HAVING LOW TIDAL VOLUMES W DESATS SO RT PLACED THE PT ON BIPAP 14/8 W 40% FIO2 WHERE THE PT MAINTAINED O2 SATS >92% ALL SHIFT. VSS AND AFEBRILE. PT HAD LARGE INCONTINENT VOID AND THEN 400ML DARK KAHLIL URINE OUTPUT AFTER CASTRO CATHETER PLACED. PT DENYING ANY PAIN OR NAUSEA THIS SHIFT. WILL REPORT TO ONCOMING RN.
[2021-05-25 09:52] LABS: Anion Gap 4 mmol/L (6-16); Blood Urea Nitrogen 16 mg/dL (8-24); Bun/Creatinine Ratio 19.4 (12.0-20.0); CO2, Blood 34 mmol/L (21-32); Calcium, Blood 7.5 mg/dL (8.5-10.1); Chloride, Blood 95 mmol/L (98-108); Creatinine, Blood 0.83 mg/dL (0.40-1.00); Glomerular Filtration Rate >60 (60-); Glucose, Blood 81 mg/dL (70-99); Potassium, Blood 4.8 mmol/L (3.5-5.5); Sodium, Blood 133 mmol/L (136-145)
--- NOTE | 2021-05-25 17:57 | NUR ---
SHIFT NOTE PT'S O2 NEEDS HAVE VARIED T/O THE DAY OT MAINTAIN SPO2 GREATER THAN 94%. PT DROWSY T/O THE DAY, SHE DOES WAKE EASILY TO VERBAL STIMULI. PT WITH NO APPETITE HAS REFUSED MOST OF HER MEALS TODAY. VSS. LS DIM T/O, WITH SHALLOW RESPIRATIONS. PT WITH PRODUCTIVE GREEN COLORED SPUTUM. CASTRO CATH REMAINS DRAINGING WELL TO GRAVITY, FOUL ODOR NOTED TO URINE. NEW ORDER OBTAINED FOR NS X1 BAG.
--- NOTE | 2021-05-25 20:52 | NUR ---
ASSUMED CARE OF PATIENT AT APPROXIMATELY 1900 FROM PHILL Barcenas RN. PATIENT RESPONDS TO VERBAL STIMULUS; PATIENT ABLE TO STATE NAME, , AND LOCATION BUT UNABLE TO STATE DATE BUT ABLE TO STATE 2021. PATIENT DENIES PAIN, DIZZINESS, AND NAUSEA. AFIB ON TELE; OXYGEN SATURATION ABOVE 90% ON AIRVO 40L 45%; USES CPAP AT HOME; TWO RN VERIFY FOR BLOOD CONSENT AND VERBAL RELEASE DUE TO ENHANCED ISOLATION. BEDREST; Q2H TURNS WITH LIFT; URINARY CATH DRAINING CLEAR YELLOW URINE. PG INFUSING IVF PER ORDER; PIV S/L.
--- NOTE | 2021-05-26 04:20 | NUR ---
DR. KRAFT NOTIFIED OF 16 RUN OF VTA; ORDERS FOR MAG AND CHECK ALL ELECTROLYTES. ALSO ORDER FOR ABG. DR. KRAFT WILL LOOK INTO SEE IF PATIENT NEEDS ECHO.
[2021-05-26 05:02] LABS: PCO2 Arterial 93.9 mmHg (35-45); PO2 Arterial 96.6 mmHg (80-100); pH Blood Arterial 7.21 (7.35-7.45)
[2021-05-26 05:13] LABS: Hematocrit 43.6 % (33.0-51.0); Hemoglobin 12.5 g/dL (11.5-16.0); Mean Corpuscular HGB Conc 28.7 g/dL (31.5-36.5); Mean Corpuscular Volume 101 fL (80-100); Mean Platelet Volume 11.2 fL (9.1-12.4); Platelet Count 184 K/mm3 (150-400); RDW Coefficient Variation 15.2 % (11.7-14.2); RDW Standard Deviation 57.8 fL (35.1-46.3); Red Blood Cell Count 4.31 M/mm3 (3.80-5.20); White Blood Cell Count 3.81 K/mm3 (4.00-11.30)
--- NOTE | 2021-05-26 05:17 | NUR ---
DR. KRAFT NOTIFIED OF CRITICALLY LOW PH OF 7.21 AND CRITICALLY HIGH CO2 OF 94; RT ADJUSTED PRESSURES ON BIPAP; ORDERS TO REPEAT ABG IN 4 HOURS. LAB REPORTED MAG BEING SENT OUT; WILL NOT GET VALUE THIS SHIFT; NOTIFIED.
[2021-05-26 05:41] LABS: BASOPHILS PERCENT MAN 0 % (0-2); EOSINOPHILS PERCENT MAN 0 % (0-6); LYMPHOCYTES ABSOLUTE MAN 1.14 K/mm3 (0.84-5.20); LYMPHOCYTES PERCENT MAN 30 % (21-46); MONOCYTES ABSOLUTE MAN 0.15 K/mm3 (0.16-1.47); MONOCYTES PERCENT MAN 4 % (4-13); MYELOCYTE ABSOLUTE MAN 0.11 K/mm3 (0.00-0.00); MYELOCYTE PERCENT MAN 3 % (0-0); SEG NEUTROPHILS PERCENT MAN 63 % (41-73); TOTAL CELLS COUNTED 100
[2021-05-26 05:44] LABS: Alanine Aminotransfer (ALT/SGP 17 U/L (12-78); Albumin, Blood 2.4 g/dL (3.4-5.0); Albumin/Globulin Ratio 0.5 (0.8-1.8); Alk Phos 55 U/L (50-136); Anion Gap 1 mmol/L (6-16); Aspartate Aminotrans (AST/SGOT 15 U/L (12-37); Bilirubin, Total 0.4 mg/dL (0.1-1.0); Blood Urea Nitrogen 21 mg/dL (8-24); Bun/Creatinine Ratio 26.2 (12.0-20.0); CO2, Blood 38 mmol/L (21-32); Chloride, Blood 103 mmol/L (98-108); Glomerular Filtration Rate >60 (60-); Glucose, Blood 80 mg/dL (70-99); Sodium, Blood 142 mmol/L (136-145); Total Protein, Blood 7.4 g/dL (6.4-8.2)
--- NOTE | 2021-05-26 06:13 | NUR ---
PATIENT ATTEMPTED TO PULL BIPAP OFF THIS AM; REPORTS IT HURTS FACE; RT NOTIFIED AND WAS IN ROOM. NO OTHER ACUTE CHANGES.
[2021-05-26 09:20] LABS: PCO2 Arterial 80.1 mmHg (35-45); PO2 Arterial 66.1 mmHg (80-100); pH Blood Arterial 7.26 (7.35-7.45)
--- NOTE | 2021-05-26 10:00 | NUR ---
PT CONTINUES TO PULL AT MASK, DR STARR IS CONSULTED ABOUT RESTRAINT PLACEMENT, ORDER FOR RESTRAINT WAS OBTAINED, WIRE HANGER IS AWARE AND HAS ALERTED ICU WIRE HANGER OF POSSIBLE ICU TRANSFER. DR STARR IS ON THE PHONE WITH PT'S HEATCRE PROXY FLORESITA AT THIS TIME. PER FLORESITA PT TO BE A FULL CODE, SHE IS OK WITH RESTRAINT PLACEMENT, SISTER IS AWARE THAT PT WILL BE MOVED TO ICU. AFIB NOTED ON MONITOR WITH HR 68, 159/89, BIPAP 24/8, 28% AT THIS TIME. PT WILL PREPARE FOR TRANSFER TO ICU.
--- NOTE | 2021-05-26 12:03 | NUR ---
ASSUMED CARE OF PATIENT FROM PCU 1145: AOX SELF ONLY, INTERMITANT COOPERATION IN CARE, FOLLOWS COMMANDS WHEN WANTS TO, NO SEDATION, RESTRAINTS FOR ATTEMPTING TO PULL OFF BIPAP, AFIB 70S, +2 PULSES, HTN 140S, LUNGS COARSE, ON BIPAP 22/8 AT 28%, SATS >92, CASTRO DRAINING CLEAR/YELLOW OUTPUT, ABDOMEN NON TENDER AUDIBLE BOWELS, WILL CONTINUE TO MONITOR.
--- NOTE | 2021-05-26 14:07 | NUR ---
TOTAL PATIENT TIME 2 HRS: CARE TRANSFERED OVER TO TONY RN, FOLLOWS COMMANDS, AOX1, RESTRAINTS CONTINUED, REMAINS CALM W/RESTRAINTS, BIPAP 28%, VSS AFIB RATE CONTROLED 70S AND SOME HTN 150S SBP, SPUTUM SAMPLE STILL PENDING, CASTRO CLEAR/YELLOW OUTPUT, SIGNING OFF ON PATIENT.
--- NOTE | 2021-05-26 14:20 | NUR ---
ASSUME CARE: I have assumed care of this pt.
--- NOTE | 2021-05-26 19:33 | NUR ---
SHIFT SUMMARY: Pt transferred to ICU from PCU this afternoon for increasing aggitation and restraint use while on BIPAP. She tolerated AIRVO for oral care and assessment, but was placed back on BIPAP at 28% 24/8 for CO2 of 80. Restraints are in place because pt pulls off BIPAP mask and is not redirectable. She is able to take crushed pills with apple sauce. Report given to podiatry assistant nurse.
--- NOTE | 2021-05-26 22:59 | NUR ---
ASSUMED CARE PATIENT IS ALERT AND ORIENTED X SELF ONLY, UNABLE TO ANSWER APPROPRIETLY. FOLLOWS COMMANDS AND ABLE TO MOVE ALL EXTREMETIES. 02 SATS 93% ON BIPAP 20/8 FI02 25%, RR 23. LUNGS SOUND COARSE TO DIMINISHED. HR A.FIB 60s-70s, OCCASIONALLY DROPS TO 50s. BP STABLE. CASTRO DRAINING CLEAR YELLOW TO GRAVITY. MEDICATED FOR PAIN PER EMAR. UPDATED SISTER ON PATIENT CONDITION, CONCERNS FOR NUTRITION ADDRESSED, ORDERS FOR SPEECH EVAL AND ADAPTED PHYSICAL EDUCATION SPECIALIST. PATIENT REPOSITIONED Q2 HOURS. RESTRAINTS IN PLACE, PATIENT PULLING AT LINES AND BIPAP. SEE SHIFT ASSESSMENT FOR MORE INFORMATION.
[2021-05-27 03:47] LABS: PCO2 Arterial 63.4 mmHg (35-45); PO2 Arterial 72.6 mmHg (80-100); pH Blood Arterial 7.36 (7.35-7.45)
[2021-05-27 04:28] LABS: Hematocrit 40.9 % (33.0-51.0); Hemoglobin 12.1 g/dL (11.5-16.0); Mean Corpuscular HGB 28.7 pg (26.0-34.0); Mean Corpuscular HGB Conc 29.6 g/dL (31.5-36.5); Mean Corpuscular Volume 97 fL (80-100); Platelet Count 206 K/mm3 (150-400); RDW Coefficient Variation 15.1 % (11.7-14.2); RDW Standard Deviation 54.7 fL (35.1-46.3); Red Blood Cell Count 4.21 M/mm3 (3.80-5.20); White Blood Cell Count 6.38 K/mm3 (4.00-11.30)
[2021-05-27 04:49] LABS: BAND PERCENT MAN 2 % (0-8); BASOPHILS PERCENT MAN 0 % (0-2); EOSINOPHILS PERCENT MAN 0 % (0-6); LYMPHOCYTES ABSOLUTE MAN 0.82 K/mm3 (0.84-5.20); LYMPHOCYTES PERCENT MAN 13 % (21-46); MONOCYTES ABSOLUTE MAN 0.31 K/mm3 (0.16-1.47); MONOCYTES PERCENT MAN 5 % (4-13); MYELOCYTE ABSOLUTE MAN 0.06 K/mm3 (0.00-0.00); MYELOCYTE PERCENT MAN 1 % (0-0); NEUTROPHILS ABSOLUTE MAN 5.16 K/mm3 (1.96-9.15); SEG NEUTROPHILS PERCENT MAN 79 % (41-73); TOTAL CELLS COUNTED 100
[2021-05-27 04:50] LABS: Alanine Aminotransfer (ALT/SGP 18 U/L (12-78); Albumin, Blood 2.4 g/dL (3.4-5.0); Albumin/Globulin Ratio 0.5 (0.8-1.8); Alk Phos 53 U/L (50-136); Anion Gap 6 mmol/L (6-16); Aspartate Aminotrans (AST/SGOT 12 U/L (12-37); Bilirubin, Total 0.5 mg/dL (0.1-1.0); Blood Urea Nitrogen 23 mg/dL (8-24); Bun/Creatinine Ratio 32.4 (12.0-20.0); CO2, Blood 36 mmol/L (21-32); Calcium, Blood 8.1 mg/dL (8.5-10.1); Chloride, Blood 101 mmol/L (98-108); Creatinine, Blood 0.71 mg/dL (0.40-1.00); Globulin, Blood 4.6 g/dL (2.2-4.0); Glomerular Filtration Rate >60 (60-); Glucose, Blood 66 mg/dL (70-99); Potassium, Blood 3.4 mmol/L (3.5-5.5); Sodium, Blood 143 mmol/L (136-145)
--- NOTE | 2021-05-27 07:31 | NUR ---
SHIFT SUMMARY PATIENT IS ALERT AND ORIENTED TIMES SELF, ANSWERS NO TO ALL OTHER QUESTIONS, WAS ABLE TO STATE THAT SHE ENJOYED ORAL CARE. 02 SATS 92% ON BIPAP 20/8 35%. LUNGS SOUND COURSE. HR A. FIB @60s-70S. BP STABLE. CASTRO DRAINING TO GRAVITY. NO BM THIS SHIFT. TURNED SIDE TO SIDE Q2 HOURS. MEDICATED ONCE FOR PAIN. BLOOD GLUCOSE LOW IN AM LABS WELL POTASSIUM, CALLED HOSPITALIST AND MEDICATED PER EMAR. Q6 CBGS.
--- NOTE | 2021-05-27 08:00 | NUR ---
PT AWAKENS TO VEBAL STIMULI AND IS ORIENTED TO SELF FOLLOWS SOME COMMANDS. PT COOPERATIVE WITH ORAL CARE. PT BEGAN YELLING "OUCH" WHEN RN WASHING HER FACE. PT APPEARS HYPERSENSITIVE TO STIMULI/TOUCH. PAGE, BUT WEAK. SOFT WRIST RESTRAINTS PT REACHES FOR IV LINES AND BIPAP WHEN NOT RESTRAINED. PT IS AFEBRILE. ECG CONTINUES AFIB-RATE 80'S. BP STABLE. DP/PT PULSES 2+ 2+ EDEMA TO BILATERAL UPPER AND LOWER EXTREMITIES. LUNGS COARSE TO UPPER LOBES AND DIMINISHED TO THE BASES. PT HAS A WEAK, NONPRODUCTIVE COUGH. RR 18-26 AT REST. EXERTIONAL DYSPNEA NOTED. SATS>90% ON BIPAP 20/8 WITH FIO2 35% NPO PT IS PRIMARILY, BIPAP DEPENDENT. CASTRO TO BSD WITH SMALL AMOUNT OF CLEAR, YELLOW URINE OUT. ROUTINE AM LASIX GIVEN-SEE EMAR. PT SKIN IN DRY AND FLAKY. RIGHT LOWER EXTREMITIES HAS MEPILEX TO PRESSURE ULCER THAT APPEARS UNCHANGED FROM PHOTO. PT THIGHS, UNDERARMS, UNDER HER BREASTS, ASHLEY AREA, AND SKIN FOLDS WITH RED-YEAST LIKE RASH. WILL REQUEST ANTI FUNGAL POWDER. COCCYX/BUTTOCKS WITH MEPILEX DRESSING PREVENTATIVE MEASURE-DRESSING PEALED BACK TO CONFIRM THAT THE SKIN REMAINS INTACT. PT POSITIONED SIDE TO SIDE-OFF OF HER BOTTOM.
--- NOTE | 2021-05-27 12:00 | NUR ---
DR. STARR HERE TO SEE PT. NO ACUTE CHANGES. ANTIFUNGAL POWDER ORDERED.
--- NOTE | 2021-05-27 13:00 | NUR ---
PT AWAKE, BUT STILL CONFUSED AT TIMES. PT BEGAN CRYING OUT "OUCH!" WITH POSITION CHANGE. PT ATTEMPTED TO STRIKE RN WHEN RESTRAINT REMOVED FOR POSITION CHANGE. RN ATTEMPTED TO EXPLAIN TO PT THAT SHE IS IN THE HOSPITAL AND THE STAFF IS TRYING TO HELP HER. PT STATES "I WON'T HIT." PT CONTINUES TO APPEAR HYPERSENSITIVE TO STIMULI. PT CRIES OUT WITH EVEN THE SLIGHTEST OF TOUCH. MED WITH FENTANYL 50 MCG IVP -SEE EMAR.LUNGS REMAIN COARSE TO UPPER LOBES AND DIMINISHED IN THE BASES. RARE COUGH NOTED. RESP 24-28-SATS>90% STILL ON BIPAP 20/8-FIO2 35% PT MOUTH IS VERY DRY.EXTENSIVE ORAL CARE DONE AND PT TOLERATED IT QUITE WELL OTHER THAT STATING THAT "IT HURTS." NEW EXTENDED DWELL CATHETER PLACE AND VANCO INITIATED-SEE EMAR.
--- NOTE | 2021-05-27 16:26 | NUR ---
PT GIVEN BRIEF BREAK FROM BIPAP. SATS DOWN TO 80'S ON AIRVO- ORAL CARE COMPLETED AND BIPAP REPLACED. SATS>90% ON 8-FIO2 35%. RR 26. LUNGS REMAIN COARSE AND DIMINISHED AND COUGHING IS RARE. WHEN PT DOES COUGH IT IS VERY WEAK AND NONPRODUCTIVE. PT CONTINUES TO COMPLAIN OF PAIN 11/22 GENERALIZED. PT REMAINS HYPERSENSITIVE TO TOUCH/STIMULI.PT REACHES FOR BIPAP MASK AND IV LINES WHEN NOT RESTRAINED. PT CONVERSATION IS CONFUSED, BUT SHE DOES FOLLOW SOME COMMANDS AND COOPERATE INTERMITTENTLY. MEDICATED WITH FENTANYL 50 MCG IVP X 1-SEE EMAR. OTHER VS WDL. PT SISTER-POA UPDATED TO CURRENT STATUS AND PLAN OF CARE.
--- NOTE | 2021-05-27 18:28 | NUR ---
PT RESTING QUIETLY ON BIPAP WHEN NOT DISTURBED. BP 167/103-BP HAS BEEN TRENDING UP. NO DISTRESS AT THIS TIME. MAINTAINS SATS>90% ON BIPAP. URINE OUTPUT ADEQUATE THIS SHIFT-PM DOSE OF LASIX GIVEN-SEE EMAR.
--- NOTE | 2021-05-27 21:14 | NUR ---
ASSUMED CARE PATIENT IS ALERT AND ORIENTED X3, STILL CONFUSED AND FORGETFUL ASKING THE SAME QUESTIONS MULTIPLE TIMES AND PULLING AT THINGS. ABLE TO FOLLOW COMMANDS AND MOVE ALL EXTREMETIES. 02 SATS 94% ON AIRVO, GIVING BREAK FROM BIPAP WHILE AWAKE. PATIENT COUGHING UP MODERATE AMOUNTS OF THICK ORR SPUTUM, STRONG COUGH. HR A.FIB 70s-80s. BP STABLE. DENIES CP/PRESSURE. CASTRO DRAINING CLEAR YELLOW TO GRAVITY. REPOSITIONED AND ORAL CARE DONE. CALL LIGHT IN REACH.
--- NOTE | 2021-05-27 21:58 | NUR ---
UPDATED PATIENTS SISTER FLORESITA ON PATIENT CONDITION, WENT IN ROOM AND SET UP PHONE SO THEY COULD TALK.
--- NOTE | 2021-05-28 06:00 | NUR ---
SHIFT SUMMARY PATIENT IS ALERT AND ORIENTED X3, ABLE TO STATE SELF, YEAR, CITY. SOME CONFUSION WITH MONTH AND WHY SHE IS HERE. FORGETFULL AND WILL ASK THE SAME QUESTION REPEATEDLY. 02 SATS 95% ON AIRVO 40L 32% FI02. BIPAP MOST THE NIGHT WHILE SLEEPING. LUNGS COARSE, STRONG COUGH WITH MODERATE AMOUNT OF THICK ORR SPUTUM. HR A.FIB, BP STABLE. CASTRO DRAINING CLEAR YELLOW URINE TO GRAVITY. PPN INF THROUGH THE NIGHT. REPOSITIONED Q2 HOURS AND ASHLEY CARE DONE. OUT OF RESTRAINTS. CALL LIGHT IN REACH.
[2021-05-28 06:03] LABS: BASOPHILS ABSOLUTE AUTO 0.02 K/mm3 (0.00-0.23); BASOPHILS PERCENT AUTO 0 % (0-2); EOSINOPHILS ABSOLUTE AUTO 0.04 K/mm3 (0.00-0.68); EOSINOPHILS PERCENT AUTO 1 % (0-6); Hematocrit 39.6 % (33.0-51.0); Hemoglobin 12.2 g/dL (11.5-16.0); IMMATURE GRAN ABSOLUTE AUTO 0.13 K/mm3 (0.00-0.10); IMMATURE GRAN PERCENT AUTO 2 % (0-1); LYMPHOCYTES ABSOLUTE AUTO 0.71 K/mm3 (0.84-5.20); LYMPHOCYTES PERCENT AUTO 12 % (21-46); MONOCYTES PERCENT AUTO 7 % (4-13); Mean Corpuscular HGB 29.1 pg (26.0-34.0); Mean Corpuscular HGB Conc 30.8 g/dL (31.5-36.5); Mean Corpuscular Volume 95 fL (80-100); NEUTROPHILS ABSOLUTE AUTO 4.59 K/mm3 (1.96-9.15); NEUTROPHILS PERCENT AUTO 78 % (41-73); Platelet Count 213 K/mm3 (150-400); RDW Coefficient Variation 14.8 % (11.7-14.2); RDW Standard Deviation 51.8 fL (35.1-46.3); Red Blood Cell Count 4.19 M/mm3 (3.80-5.20); White Blood Cell Count 5.89 K/mm3 (4.00-11.30)
[2021-05-28 06:30] LABS: Alanine Aminotransfer (ALT/SGP 15 U/L (12-78); Albumin, Blood 2.4 g/dL (3.4-5.0); Albumin/Globulin Ratio 0.5 (0.8-1.8); Alk Phos 53 U/L (50-136); Anion Gap 2 mmol/L (6-16); Aspartate Aminotrans (AST/SGOT 14 U/L (12-37); Bilirubin, Total 0.7 mg/dL (0.1-1.0); Blood Urea Nitrogen 19 mg/dL (8-24); Bun/Creatinine Ratio 32.8 (12.0-20.0); CO2, Blood 36 mmol/L (21-32); Calcium, Blood 8.1 mg/dL (8.5-10.1); Chloride, Blood 99 mmol/L (98-108); Creatinine, Blood 0.58 mg/dL (0.40-1.00); Globulin, Blood 4.5 g/dL (2.2-4.0); Glomerular Filtration Rate >60 (60-); Glucose, Blood 129 mg/dL (70-99); Potassium, Blood 3.1 mmol/L (3.5-5.5); Sodium, Blood 137 mmol/L (136-145); Total Protein, Blood 6.9 g/dL (6.4-8.2); Triglycerides 168 mg/dL (30-160)
--- NOTE | 2021-05-28 08:00 | NUR ---
PT IS AWAKE AND ALERT ORIENTED X 3. PT FORGETFUL AT TIMES, BUT RE-ORIENTS WITH VERBAL PROMPTS. PT REPORTS 6/10 GENERALIZED PAIN-MED WITH [facility]CO-SEE EMAR. PT AM CARE COMPLETED AND PT ASSISTED OOB TO CHAIR USING CEILING LIFT. PT PASSED BEDSIDE SWALLOW. LUNGS DIMINISHED IN THE BASES WITH FEW SCATTERED WZ, BUT OVERALL IMPROVED FROM 05/27/21. PT HAS FREQUENT MOIST, COUGH PRODUCTIVE OF LARGE AMOUNT OF THICK, ORR SPUTUM. SATS>90% ON AIRVO 40 LITERS/FIO2 30% PT ABLE TO TAKE PO MEDS WHOLE WITH SIPS OF WATER WITHOUT DIFFICUTLY. WILL ORDER DIET AND IF PT TOLERATES, WILL DISCONTINUE PPN. AM LASIX HELD UNTIL K+REPLETION. CASTRO TO BSD WITH SMALL AMOUNT OF DARK, YELLOW URINE TO BSD. PT SKIN FOLDS SLIGHTLY RED, CLEANSED WITH SOAP AND WATER, PATTED DRY, AND ANTIFUNGAL POWDER APPLIED. PT HAS FOAM DRESSING TO [employer]. [employer] DRESSING PEELED BACK AND REVEALED THAT SKIN IS CLEAR AND INTACT. PT RIGHT CHAPIN IS SLIGHTLY RED AND THERE IS A SCAB THAT IS OPEN TO AIR. PT REQUESTS THAT THE DRESSING REMAIN OFF FOR NOW SHE CLAIMS THAT THE DRESSING "HURTS." CALL LIGHT PLACED WITHIN REACH. PT COMMUNICATING NEEDS WELL.
--- NOTE | 2021-05-28 11:01 | NUR ---
DR STARR GIVEN FULL UPDATE. PT NOW PCU STATUS. PPN DISCONTINUED PT TOLERATING ADA DIET. PT REQUESTS TO REMAIN UP IN CHAIR. CHAIR ELEVATED FOR 30 MINUTES FOLLOWING BREAKFAST, THEN RECLINED. PT SISTER CALLED AND REQUESTED TO FACETIME PT. MIRI GUNN GAVE PT HER CELL PHONE AND ASSISTED WITH CONTACTING PT SISTER.
--- NOTE | 2021-05-28 15:30 | NUR ---
PT REQUESTED TO GET BACK TO BED. REQUEST GRANTED. PT REPORTS 9/10 GENERALIZED PAIN. MED WITH FENTANYL 25 MCG IVP X1 AND NORO 0.5 TAB PO-SEE EMAR. PT REMAINS AFEBRILE. ECG CONTINUES AFIB. BP STABLE. LUNGS DIMINISHED IN THE BASES. PT MAINTAINS SATS>90% ON AIRVO 40 LITERS/ FIO2 25%. PT REQUESTING TO TAKE A NAP-THEREFORE, BIPAP PLACED. VANCO LEVEL CRITICAL. 1300 DOSE OF VANCO HELD AND RANDOM VANCO TO BE DRAWN @ 1999. PT REQUESTED THAT LOTION BE APPLIED TO HER ARMS AND LEGS-REQUEST GRANTED. CALL LIGHT WITHIN REACH.
--- NOTE | 2021-05-28 18:37 | NUR ---
PT REPORTS 9/10 GENERALIZED PAIN. MED WITH FENTANYL 50 MCG IVP X 1, THEN POSITIONED TO COMFORT ON LEFT SIDE. CALL LIGHT WITHIN REACH.
--- NOTE | 2021-05-28 20:39 | NUR ---
SHIFT ASSESSMENT PT IS ALERT AND ORIENTED TO PERSON, PLACE, AND FAMILY. EASILY REORIENTED. FOLLOWING COMMANDS. PASSED SWALLOW EVAL, ABLE TO TAKE PO MEDS. PT RECENTLY MEDICATED FOR PAIN, DENIES PAIN AT THIS TIME. PT TURNED, SKIN CLEANSED, ASHLEY AREA CLEANED, ANTI-FUNGAL POWDER APPLIED. PT ON AIRVO WHILE AWAKE, 40L/25% c O2 SATS >92%. BASELINE A-FIB, A-FIB ON MONITOR IN THE 60'S. BP STABLE. CASTRO CATH DRAINING LIGHT YELLOW URINE. PT USING CALL LIGHT, CALL LIGHT IN REACH. NO COMPLAINTS AT THIS TIME. WILL CONTINUE TO MONITOR.
[2021-05-29 04:28] LABS: Hematocrit 42.5 % (33.0-51.0); Hemoglobin 13.2 g/dL (11.5-16.0); Mean Corpuscular HGB 28.6 pg (26.0-34.0); Mean Corpuscular HGB Conc 31.1 g/dL (31.5-36.5); Mean Corpuscular Volume 92 fL (80-100); Mean Platelet Volume 11.2 fL (9.1-12.4); Platelet Count 226 K/mm3 (150-400); RDW Coefficient Variation 14.6 % (11.7-14.2); RDW Standard Deviation 49.6 fL (35.1-46.3); Red Blood Cell Count 4.62 M/mm3 (3.80-5.20); White Blood Cell Count 5.15 K/mm3 (4.00-11.30)
[2021-05-29 04:49] LABS: Anion Gap 6 mmol/L (6-16); Blood Urea Nitrogen 20 mg/dL (8-24); Bun/Creatinine Ratio 32.9 (12.0-20.0); CO2, Blood 36 mmol/L (21-32); Calcium, Blood 7.8 mg/dL (8.5-10.1); Chloride, Blood 95 mmol/L (98-108); Creatinine, Blood 0.61 mg/dL (0.40-1.00); Glomerular Filtration Rate >60 (60-); Glucose, Blood 101 mg/dL (70-99); Potassium, Blood 3.6 mmol/L (3.5-5.5); Sodium, Blood 137 mmol/L (136-145); Vancomycin, Random 22.3 ug/mL
[2021-05-29 05:21] LABS: BAND PERCENT MAN 5 % (0-8); BASOPHILS PERCENT MAN 0 % (0-2); EOSINOPHILS PERCENT MAN 0 % (0-6); LYMPHOCYTES ABSOLUTE MAN 0.72 K/mm3 (0.84-5.20); LYMPHOCYTES PERCENT MAN 14 % (21-46); METAMYELOCYTE ABSOLUTE MAN 0.15 K/mm3 (0.00-0.00); METAMYELOCYTE PERCENT MAN 3 % (0-0); MONOCYTES ABSOLUTE MAN 0.46 K/mm3 (0.16-1.47); MONOCYTES PERCENT MAN 9 % (4-13); MYELOCYTE ABSOLUTE MAN 0.05 K/mm3 (0.00-0.00); MYELOCYTE PERCENT MAN 1 % (0-0); NEUTROPHILS ABSOLUTE MAN 3.75 K/mm3 (1.96-9.15); SEG NEUTROPHILS PERCENT MAN 68 % (41-73); TOTAL CELLS COUNTED 100
--- NOTE | 2021-05-29 06:14 | NUR ---
SHIFT SUMMARY NO ACUTE CHANGES IN PT CONDITION DURING THE NIGHT. PT DID NOT SLEEP MUCH HENCE SHE REMAINED ON THE AIRVO AT PREVIOUS SETTINGS. PT STATES SHE USUALLY DOES NOT SLEEP MUCH AT NIGHT. VSS T/O THE NIGHT. MEDICATED MULTIPLE TIMES FOR PAIN. REPORT TO BE GIVEN TO ONCOMING NURSE.
--- NOTE | 2021-05-29 11:08 | NUR ---
I updated pt sister (Arlette). She had concerns about pt CPAP machine and home oxygen. Arlette said they use [facility] for her home O2 needs. I informed Arlette it would be best for her to contact [facility] [place] with concerns of the CPAP equiptment. Arlette said she would contact the company.
--- NOTE | 2021-05-29 13:54 | NUR ---
Pt is sitting up in chair, at 50% of lunch. Pt is sating 92-94% on 2L.
--- NOTE | 2021-05-29 15:54 | NUR ---
Pt's sister brought in home CPAP. Talked with Dr. Monroy and she is ok with pt using home CPAP and d/c order for BIPAP. I will notifiy RT and place orders.
--- NOTE | 2021-05-29 18:02 | NUR ---
Shift note: Pt is A&O, pleasant with cares. VSS on 2L, pt was titrated off of airvo today and has been sustaining 90-94%. Pt sister brought in home CPAP and RT will set up once pt arrives in PCU, CPAP in room and RT has looked over tubing and machine. IV rocephin given per orders. Richardson in place and draining well. Scheduled stool softners given in AM with no effect, prn suppository given this evening and still waiting for results. Pt uses keyla lift to get out of bed. Pt was up in chair from about 1300- 1800. Skin: redness in pannus, antifungal powder applied. Tele: afib 70-90s. subcutaneous heparin given per orders. COVID + precautions maintained, baracinanib and dexamethasone given per orders. Report called to Larry CHERY in PCU for transfer to PCU @1800.
--- NOTE | 2021-05-29 18:47 | NUR ---
PT TRANSFERRED TO ROOM PCU 20, REPORT RECEVIED FROM ERWIN CHERY. PT IS ALERT AND ORIENTED BEDBOUND AT BASELINE, USED LIFT TO TRANSFER TO PCU BED. ON 2L OF O2 VIA NASAL CANNULA SATS ABOVE 94%, HRR AFIB 80'S, BP SYSTOLIC 130S, AFEBRILE. CASTRO DRAINING VIA GRAVITY, PT STATED PT RECEIVED A SUPPOSITORY IN ICU AND HASNT HAD ANY BM FOR AWHILE, PT REPORTED PASSING FLATUS AND IS STARTING TO WORK. HAS REDNESS ON FOLDS AND SCALY SKIN ON BOTH LEGS, PAIN MEDS GIVEN C/O LEG PAIN. PT NOW SETTLED IN THE ROOM WATCHING TV, CALL LIGHTS IN REACH WILL REPORT TO ONCOMING SHIFT
--- NOTE | 2021-05-29 22:38 | NUR ---
CARE ASSUMPTION: RECEIVED REPORT FROM MIRI BROWNING. PATIENT WAS NEWLY ARRIVED FROM ICU. PATIENT RECEIVED SUPPOSITORY BEFORE TRANSFER AND HAD A BOWEL MOVEMENT DURING REPORT. PATIENT STATED HER ABDOMEN FELT BETTER.
[2021-05-30 06:24] LABS: Vancomycin, Random 13.1 ug/mL
--- NOTE | 2021-05-30 06:32 | NUR ---
SHIFT SUMMARY: PATIENT MAINTAINED O2 SATS >95% ON 2L NC, WHICH IS HOME BASELINE. PATIENT HAS HAD A FEW EPISODES OF BRADYCARDIA IN THE 40S, BUT CORRECTS TO 60S-70S AFTER A FEW MINUTES. PATIENT DENIES SOB AND PAIN HAS SUBSIDED SINCE BM EARLIER IN SHIFT. PATIENT PLEASANT THOUGH DEMONSTRATES SOME CONFUSION ABOUT HER CURRENT CONDITION AND DOES NOT ALWAYS FOLLOW DIRECTIONS. NEEDS FREQUENT ORIENTATION TO MEDICAL EQUIPMENT (EG, HEART MONITOR IS THERE TO MONITOR HER HEART ACTIVITY - IT WILL NOT CORRECT IRREGULAR HEART PATTERNS). DOES NOT ASSIST WITH CARE BUT IS A FRIENDLY CONVERSATIONALIST. WILL REPORT TO ONCOMING RN.
--- NOTE | 2021-05-30 08:45 | NUR ---
ASSUMPTION OF CARE Pt is resting in bed. She is a/o x with with no complaints this morning. She was switched over to the NC @ 2 LPM which is her home order. Her canela is patent. She is sitting up eating her breakfast and was able to take her morning PO pills. She is able to make her needs known and has her call light in reach.
[2021-05-30] MEDS ORDERED: OLUMIANT2 MG PO (11:47)
[2021-05-30] MEDS ORDERED: PROBIOTIC1 EA13 PO (11:48)
[2021-05-30] MEDS ORDERED: DOXY100 PO (11:49)
--- NOTE | 2021-05-30 12:25 | NUR ---
PT DCD HOME with care givers and home health as set up by care management. Med rec was faxed to [facility] per pt request. All instructions were reviewed with the pt who verbalized an understanding. She reported that she will be making a follow up appt with her PCP as soon as she gets home as she has already been in contact with them. Richardson was removed and she was able to void before leaving. IVs were removed with no issue. All personal belongings were packed and sent with the pt. Pt was transported via w/c transport on her baseline of 2 LPM via [place]. Pt was stable upon DC.
== END 2021-05-30 12:21 | disposition home health service (06) | DRG 177 ==
LOC: ER 16:42 → MEDS 20:51 → ERHOLD 20:51 → ICUW 20:51 → PCU 20:51 → MEDS 23:38 → ENPENDDIS 05-23 16:58 → PCU 05-24 15:14 → ICUW 05-26 11:58 → PCU 05-29 18:04
PROVIDERS: Emergency Medicine; Family Medicine; Internal Medicine; Nurse Practitioner Acute Care; ADMIT Internal Medicine
PROC: 8E0ZXY6 Isolation (ICD-10-PCS; 2021-05-20)
PROC: 3E0333Z Introduction of Anti-inflammatory into Peripheral Vein, Percutaneous Approach (ICD-10-PCS; 2021-05-20)
PROC: XW033E5 Introduction of Remdesivir Anti-infective into Peripheral Vein, Percutaneous Approach, New Technology Group 5 (ICD-10-PCS; 2021-05-21)
PROC: XW0DXM6 Introduction of Baricitinib into Mouth and Pharynx, External Approach, New Technology Group 6 (ICD-10-PCS; 2021-05-24)
PROC: 3E03329 Introduction of Other Anti-infective into Peripheral Vein, Percutaneous Approach (ICD-10-PCS; 2021-05-25)
PROC: 5A09357 Assistance with Respiratory Ventilation, Less than 24 Consecutive Hours, Continuous Positive Airway Pressure (ICD-10-PCS; principal; 2021-05-26)
PROC: 5A0935A Assistance with Respiratory Ventilation, Less than 24 Consecutive Hours, High Flow/Velocity Cannula (ICD-10-PCS; 2021-05-28)
DX: U07.1 COVID-19 (principal); J12.82 Pneumonia due to coronavirus disease 2019; J96.01 Acute respiratory failure with hypoxia; G92.8 Other toxic encephalopathy; J15.212 Pneumonia due to Methicillin resistant Staphylococcus aureus; J44.0 Chronic obstructive pulmonary disease with (acute) lower respiratory infection; N39.0 Urinary tract infection, site not specified; I50.32 Chronic diastolic (congestive) heart failure; Z68.43 Body mass index [BMI] 50.0-59.9, adult; F32.A Depression, unspecified; G47.33 Obstructive sleep apnea (adult) (pediatric); K21.9 Gastro-esophageal reflux disease without esophagitis; E03.9 Hypothyroidism, unspecified; Z74.01 Bed confinement status; Z99.81 Dependence on supplemental oxygen; E66.01 Morbid (severe) obesity due to excess calories; Z90.710 Acquired absence of both cervix and uterus; F17.210 Nicotine dependence, cigarettes, uncomplicated; N18.30 Chronic kidney disease, stage 3 unspecified; Z79.899 Other long term (current) drug therapy; Z79.82 Long term (current) use of aspirin; Z88.2 Allergy status to sulfonamides; Z91.040 Latex allergy status; K58.9 Irritable bowel syndrome, unspecified; R73.9 Hyperglycemia, unspecified; Z78.1 Physical restraint status
CPT/HCPCS: 0241U; 36415; 36600; 71045; 71260; 80048; 80053; 80202; 81001; 82565; 82803; 82947; 83036; 83735; 83880; 84478; 84484; 85025; 87070; 87077; 87186; 87205; 92610; 93005; 93010; 94640; 94660; 94667; 94762; 96374; 96375; 99285-25; A9270; C1751; C9113; C9399; J0248; J0456; J0696; J1100; J1120; J1644; J1650; J1940; J2405; J3010; J3370; J3480; J7030; J7042; J7050; Q9967

== ENCOUNTER → 2021-07-25 | Outpatient (CLI) | payer MEDICARE, OTHER ==
[~2021-07-25] MED LIST changes: +BENZ100A PO; +DECADRON6 M1 PO; +DOXY100 PO; +GUAI600T33 PO; +OLUMIANT2 MG PO; +PROBIOTIC1 EA13 PO; +SIME80CH PO
== END | disposition home or self-care (01) ==
LOC: LAB SHORT 17:22
DX: L02.413 Cutaneous abscess of right upper limb (principal)
CPT/HCPCS: 87070; 87075; 87205

== ENCOUNTER 2022-03-01 19:16 | Emergency (ER) | payer MEDICARE, OTHER ==
[~2022-03-01] VITALS: Ht 162.6 cm; Wt 136.1 kg
[2022-03-01 20:25] LABS: BASOPHILS ABSOLUTE AUTO 0.03 K/mm3 (0.00-0.23); BASOPHILS PERCENT AUTO 0 % (0-2); EOSINOPHILS ABSOLUTE AUTO 0.03 K/mm3 (0.00-0.68); EOSINOPHILS PERCENT AUTO 0 % (0-6); Hemoglobin 13.8 g/dL (11.5-16.0); IMMATURE GRAN ABSOLUTE AUTO 0.05 K/mm3 (0.00-0.10); IMMATURE GRAN PERCENT AUTO 1 % (0-1); LYMPHOCYTES ABSOLUTE AUTO 0.97 K/mm3 (0.84-5.20); LYMPHOCYTES PERCENT AUTO 10 % (21-46); MONOCYTES ABSOLUTE AUTO 0.41 K/mm3 (0.16-1.47); MONOCYTES PERCENT AUTO 4 % (4-13); Mean Corpuscular HGB 29.1 pg (26.0-34.0); Mean Corpuscular HGB Conc 31.4 g/dL (31.5-36.5); Mean Corpuscular Volume 93 fL (80-100); Mean Platelet Volume 11.2 fL (9.1-12.4); NEUTROPHILS ABSOLUTE AUTO 8.11 K/mm3 (1.96-9.15); NEUTROPHILS PERCENT AUTO 85 % (41-73); Platelet Count 225 K/mm3 (150-400); RDW Coefficient Variation 15.1 % (11.7-14.2); RDW Standard Deviation 51.9 fL (35.1-46.3); Red Blood Cell Count 4.74 M/mm3 (3.80-5.20)
[2022-03-01] MEDS ORDERED: TRELEGY ELLIPT1 EACH (20:34)
[2022-03-01 21:25] LABS: Albumin, Blood 3.2 g/dL (3.4-5.0); Albumin/Globulin Ratio 0.7 (0.8-1.8); Bilirubin, Total 0.8 mg/dL (0.1-1.0); Bun/Creatinine Ratio 27.4 (12.0-20.0); Calcium, Blood 8.9 mg/dL (8.5-10.1); Creatinine, Blood 0.73 mg/dL (0.40-1.00); Globulin, Blood 4.8 g/dL (2.2-4.0); Magnesium, Blood 2.1 mg/dL (1.6-2.4); Potassium, Blood 4.2 mmol/L (3.5-5.5)
[2022-03-01 22:00] LABS: Base Excess Venous 12.4 mmol/L; Bicarbonate Venous 32.7 mmol/L (24.0-30.0); PCO2 Venous 71.4 mmHg (38-42); pH Blood Venous 7.34 (7.34-7.37)
[2022-03-01 22:36] LABS: Influenza A, PCR NEGATIVE (NEGATIVE); Influenza B, PCR NEGATIVE (NEGATIVE); Resp Syncytial Virus, PCR NEGATIVE (NEGATIVE); SARS-Cov-2 (COVID-19) PCR, MMC NEGATIVE (NEGATIVE)
[2022-03-02] MEDS ORDERED: LASIX40 MG PO (00:43)
[2022-03-02] MEDS ORDERED: XARELTO15 MG PO (00:43)
[2022-03-02] MEDS ORDERED: ONDA4ODT MM (01:25)
== END 2022-03-02 01:36 | disposition home or self-care (01) ==
LOC: ER 19:16
PROVIDERS: Student in an Organized Health Care Education/Training Program
DX: I50.30 Unspecified diastolic (congestive) heart failure (principal); J44.9 Chronic obstructive pulmonary disease, unspecified; I48.91 Unspecified atrial fibrillation; J81.1 Chronic pulmonary edema; R11.0 Nausea; R79.0 Abnormal level of blood mineral; N18.30 Chronic kidney disease, stage 3 unspecified; E03.9 Hypothyroidism, unspecified; G47.33 Obstructive sleep apnea (adult) (pediatric); F17.210 Nicotine dependence, cigarettes, uncomplicated; E66.01 Morbid (severe) obesity due to excess calories; Z20.822 Contact with and (suspected) exposure to COVID-19; Z88.2 Allergy status to sulfonamides; Z91.040 Latex allergy status; Z79.899 Other long term (current) drug therapy; Z79.82 Long term (current) use of aspirin; Z68.43 Body mass index [BMI] 50.0-59.9, adult
CPT/HCPCS: 0241U; 36415; 71045; 71260; 80053; 82803; 83735; 83880; 84484; 85025; 85379; 93005; 93010; 94640; 94664; A9270; J1940; J2405; J2550; J2765; J7512; Q9967

== ENCOUNTER 2022-04-03 19:09 | Emergency (ER) | payer MEDICARE, OTHER ==
[~2022-04-03] VITALS: Ht 165.1 cm; Wt 154.2 kg
[~2022-04-03 19:09] MED LIST changes: +LASIX40 MG PO; +TRELEGY ELLIPT1 EACH; +XARELTO15 MG PO
[2022-04-03 19:47] LABS: BASOPHILS ABSOLUTE AUTO 0.05 K/mm3 (0.00-0.23); BASOPHILS PERCENT AUTO 1 % (0-2); EOSINOPHILS ABSOLUTE AUTO 0.21 K/mm3 (0.00-0.68); EOSINOPHILS PERCENT AUTO 2 % (0-6); Hematocrit 39.3 % (33.0-51.0); Hemoglobin 12.1 g/dL (11.5-16.0); IMMATURE GRAN ABSOLUTE AUTO 0.09 K/mm3 (0.00-0.10); IMMATURE GRAN PERCENT AUTO 1 % (0-1); LYMPHOCYTES ABSOLUTE AUTO 0.98 K/mm3 (0.84-5.20); LYMPHOCYTES PERCENT AUTO 10 % (21-46); MONOCYTES ABSOLUTE AUTO 0.73 K/mm3 (0.16-1.47); MONOCYTES PERCENT AUTO 7 % (4-13); Mean Corpuscular HGB 28.9 pg (26.0-34.0); Mean Corpuscular HGB Conc 30.8 g/dL (31.5-36.5); Mean Corpuscular Volume 94 fL (80-100); Mean Platelet Volume 11.4 fL (9.1-12.4); NEUTROPHILS ABSOLUTE AUTO 7.96 K/mm3 (1.96-9.15); NEUTROPHILS PERCENT AUTO 79 % (41-73); Platelet Count 246 K/mm3 (150-400); RDW Coefficient Variation 15.9 % (11.7-14.2); RDW Standard Deviation 54.5 fL (35.1-46.3); Red Blood Cell Count 4.19 M/mm3 (3.80-5.20); White Blood Cell Count 10.02 K/mm3 (4.00-11.30)
[2022-04-03 20:45] LABS: Albumin, Blood 2.8 g/dL (3.4-5.0); Albumin/Globulin Ratio 0.5 (0.8-1.8); Bilirubin, Total 1.1 mg/dL (0.1-1.0); Bun/Creatinine Ratio 24.4 (12.0-20.0); Calcium, Blood 8.7 mg/dL (8.5-10.1); Creatinine, Blood 0.9 mg/dL (0.40-1.00); Globulin, Blood 5.5 g/dL (2.2-4.0); Total Protein, Blood 8.3 g/dL (6.4-8.2)
[2022-04-03 21:52] LABS: Source, Urine Straight Cath
[2022-04-03 21:54] LABS: Appearance, Urine Turbid (Clear); Bilirubin, Urine Neg (Neg); Blood, Urine 3+ (Neg); Color, Urine Yellow (P-Yellow); Glucose Qualitative, Urine Neg (Neg); Ketones, Urine Neg (Neg); Leukocyte Esterase, Urine 3+ (Neg); Nitrite, Urine Pos (Neg); Protein, Urine 1+ (Neg); Specific Gravity, Urine 1.015 (1.003-1.022); Urobilinogen, Urine 1+ (Normal)
[2022-04-03 22:15] LABS: Bacteria Many /hpf; Squamous Epithelial Cells Few /hpf (Few); White Blood Cells, Urine TNTC /hpf (0-5)
[2022-04-03] MEDS ORDERED: CEPH250A PO (23:46)
== END 2022-04-04 00:40 | disposition home or self-care (01) ==
LOC: ER 19:09
PROVIDERS: Student in an Organized Health Care Education/Training Program
DX: I48.91 Unspecified atrial fibrillation (principal); N30.00 Acute cystitis without hematuria; M79.671 Pain in right foot; J44.9 Chronic obstructive pulmonary disease, unspecified; I50.9 Heart failure, unspecified; F17.210 Nicotine dependence, cigarettes, uncomplicated; E66.01 Morbid (severe) obesity due to excess calories; Z68.43 Body mass index [BMI] 50.0-59.9, adult; Z79.01 Long term (current) use of anticoagulants
CPT/HCPCS: 71045; 73600; 80053; 81001; 85025; 93005; 93010; 96374; 99285-25; A9270; J2310

== ENCOUNTER → 2022-10-23 | Outpatient (CLI) | payer MEDICARE, OTHER ==
[~2022-10-23] MED LIST changes: +CEPH250A PO
== END ==
LOC: LAB SHORT 14:45 → LAB 14:45
DX: H10.33 Unspecified acute conjunctivitis, bilateral (principal)
CPT/HCPCS: 87070; 87077; 87147; 87186; 87205

== ENCOUNTER 2022-11-10 22:46 | Observation (INO) | payer MEDICARE, OTHER ==
[~2022-11-10] VITALS: Ht 160 cm; Wt 143.8 kg
[2022-11-11] VITALS (17 sets, daily range): BP systolic 108–143; BP diastolic 65–97
[2022-11-11] MEDS ORDERED: HYDROCODONE-AC1 EAC7 PO (01:54)
[2022-11-11] MEDS ORDERED: PANTOPRAZOLE SO40 M2 PO (02:00)
--- NOTE | 2022-11-11 03:47 | NUR ---
11/11/22 0347 Ayana Talamantes / JORDIN WITH DR. FOURNIER; SEE ANESTHESIA RECORDS. PROCEDURE COMPLETED IN OR 2 UNDER GENERAL ANESTHESIA.
--- NOTE | 2022-11-11 05:31 | NUR ---
PT ARRIVED TO ICU 08 FROM OR. RECOVERY ROOM NURSE JOCELYNN CHERY MONITORING PT AND DOING RECOVERY. PT ON BIPAP /8 RATE 14 FIO2 40%. NEW IV 20G PLACED TO LEFT FOREARM BY FRED CHERY AND IV FLUID NS AT 75 ML/HR STARTED. DR BAILEY TO BEDSIDE TO SEE PT. ORDERS OBTAINED FOR LOPRESSOR IF HEART RATE OVER 130 FOR 30 MIN.
[2022-11-11 05:48] LABS: BASOPHILS ABSOLUTE AUTO 0.04 K/mm3 (0.00-0.23); BASOPHILS PERCENT AUTO 0 % (0-2); EOSINOPHILS ABSOLUTE AUTO 0.28 K/mm3 (0.00-0.68); EOSINOPHILS PERCENT AUTO 3 % (0-6); Hematocrit 42.2 % (33.0-51.0); Hemoglobin 12.3 g/dL (11.5-16.0); IMMATURE GRAN ABSOLUTE AUTO 0.07 K/mm3 (0.00-0.10); IMMATURE GRAN PERCENT AUTO 1 % (0-1); LYMPHOCYTES ABSOLUTE AUTO 0.97 K/mm3 (0.84-5.20); LYMPHOCYTES PERCENT AUTO 10 % (21-46); MONOCYTES ABSOLUTE AUTO 0.38 K/mm3 (0.16-1.47); MONOCYTES PERCENT AUTO 4 % (4-13); Mean Corpuscular HGB 27.8 pg (26.0-34.0); Mean Corpuscular HGB Conc 29.1 g/dL (31.5-36.5); Mean Corpuscular Volume 95 fL (80-100); NEUTROPHILS ABSOLUTE AUTO 8.49 K/mm3 (1.96-9.15); NEUTROPHILS PERCENT AUTO 83 % (41-73); Platelet Count 215 K/mm3 (150-400); RDW Coefficient Variation 16.1 % (11.7-14.2); RDW Standard Deviation 57.2 fL (35.1-46.3); Red Blood Cell Count 4.43 M/mm3 (3.80-5.20); White Blood Cell Count 10.23 K/mm3 (4.00-11.30)
--- NOTE | 2022-11-11 06:07 | NUR ---
SHIFT SUMMARY: Assumed care of patient at 0550. Pt sleeping with BIPAP on, appears comfortable. Bed alarm on. Several bags of belongings in pts room but not currently accessible. Ignition risk assessed, pt is a current smoker. No ignition policy discussed with pt, but she is drowsy at this time post anesthesia. Will continue to reassess ignition risk and discuss with patient. Admission questions not completed at this time as pt is sleeping.
[2022-11-11 06:13] LABS: Albumin, Blood 3.3 g/dL (3.4-5.0); Albumin/Globulin Ratio 0.7 (0.8-1.8); Bilirubin, Total 0.8 mg/dL (0.1-1.0); Bun/Creatinine Ratio 18.8 (12.0-20.0); Calcium, Blood 8.8 mg/dL (8.5-10.1); Creatinine, Blood 1.12 mg/dL (0.40-1.00); Potassium, Blood 4.6 mmol/L (3.5-5.5); Total Protein, Blood 8.3 g/dL (6.4-8.2)
--- NOTE | 2022-11-11 07:00 | NUR ---
ASSUME CARE: I have assumed care of this patient.
--- NOTE | 2022-11-11 13:27 | NUR ---
PHONE CALL: Pt's caregiver, Shraddha, called for update per pt's request. No answer; HIPAA compliant message left.
[2022-11-11] MEDS ORDERED: METO25 PO (13:45)
--- NOTE | 2022-11-11 14:35 | NUR ---
DISCHARGE: Pt discharged home with EMS on stretcher. Discharge instructions were discussed and paperwork was rovided to patient. She verbalized understanding and agreement. Medications faxed to [facility]. Pt reports having old metoprolol rx at home; RN instructed patient to ensure the medications and dosage were the same as the new rx, otherwise she was instructed defer to the new rx. Belongings were sent home with EMS.
== END 2022-11-11 14:40 | disposition home or self-care (01) ==
LOC: ER 22:46 → PCU 22:47 → ICUE 22:47 → ER 11-11 02:15 → ICUE 11-11 05:02
PROVIDERS: ADMIT Internal Medicine
DX: T18.128A Food in esophagus causing other injury, initial encounter (principal); R00.0 Tachycardia, unspecified; I13.0 Hypertensive heart and chronic kidney disease with heart failure and stage 1 through stage 4 chronic kidney disease, or unspecified chronic kidney disease; N18.30 Chronic kidney disease, stage 3 unspecified; I50.22 Chronic systolic (congestive) heart failure; J44.9 Chronic obstructive pulmonary disease, unspecified; G47.33 Obstructive sleep apnea (adult) (pediatric); E03.9 Hypothyroidism, unspecified; F17.210 Nicotine dependence, cigarettes, uncomplicated; Z86.16 Personal history of COVID-19; E66.01 Morbid (severe) obesity due to excess calories; Z88.2 Allergy status to sulfonamides; Z91.040 Latex allergy status; Z79.890 Hormone replacement therapy; Z79.82 Long term (current) use of aspirin; Z79.01 Long term (current) use of anticoagulants; Z79.899 Other long term (current) drug therapy
CPT/HCPCS: 36415; 80053; 82947; 85025; 94660; 96372; 99284-25; A9270; J0171; J1100; J1610; J1650; J2405; J2704; J3010; J7030; J7120

== ENCOUNTER 2023-03-18 17:23 | Emergency (ER) | payer MEDICARE, OTHER ==
[~2023-03-18] VITALS: Ht 162.6 cm; Wt 142.9 kg
[~2023-03-18 17:23] MED LIST changes: +HYDROCODONE-AC1 EAC7 PO; +METO25 PO
[2023-03-18 18:34] LABS: BASOPHILS ABSOLUTE AUTO 0.05 K/mm3 (0.00-0.23); BASOPHILS PERCENT AUTO 0 % (0-2); EOSINOPHILS ABSOLUTE AUTO 0.03 K/mm3 (0.00-0.68); EOSINOPHILS PERCENT AUTO 0 % (0-6); Hematocrit 43.9 % (33.0-51.0); Hemoglobin 12.5 g/dL (11.5-16.0); IMMATURE GRAN ABSOLUTE AUTO 0.12 K/mm3 (0.00-0.10); IMMATURE GRAN PERCENT AUTO 1 % (0-1); LYMPHOCYTES ABSOLUTE AUTO 0.76 K/mm3 (0.84-5.20); LYMPHOCYTES PERCENT AUTO 6 % (21-46); MONOCYTES ABSOLUTE AUTO 0.44 K/mm3 (0.16-1.47); MONOCYTES PERCENT AUTO 4 % (4-13); Mean Corpuscular HGB Conc 28.5 g/dL (31.5-36.5); Mean Corpuscular Volume 88 fL (80-100); Mean Platelet Volume 11.2 fL (9.1-12.4); NEUTROPHILS ABSOLUTE AUTO 10.51 K/mm3 (1.96-9.15); NEUTROPHILS PERCENT AUTO 88 % (41-73); NRBC ABSOLUTE 0.05 K/mm3 (0.00-0.02); NRBC Auto 0.4 /100 WBC (0.0-0.2); Platelet Count 223 K/mm3 (150-400); RDW Coefficient Variation 19.9 % (11.7-14.2); RDW Standard Deviation 62.7 fL (35.1-46.3); Red Blood Cell Count 5.01 M/mm3 (3.80-5.20); White Blood Cell Count 11.91 K/mm3 (4.00-11.30)
[2023-03-18 18:36] LABS: Source, Urine Voided
[2023-03-18 18:58] LABS: Albumin, Blood 2.8 g/dL (3.4-5.0); Albumin/Globulin Ratio 0.5 (0.8-1.8); Bilirubin, Total 1.9 mg/dL (0.1-1.0); Bun/Creatinine Ratio 16.5 (12.0-20.0); Calcium, Blood 8.4 mg/dL (8.5-10.1); Creatinine, Blood 1.09 mg/dL (0.40-1.00); Globulin, Blood 5.6 g/dL (2.2-4.0); Potassium, Blood 4.8 mmol/L (3.5-5.5); Total Protein, Blood 8.4 g/dL (6.4-8.2)
[2023-03-18 19:15] LABS: Appearance, Urine Cloudy (Clear); Bilirubin, Urine Neg (Neg); Blood, Urine 2+ (Neg); Color, Urine Yellow (P-Yellow); Glucose Qualitative, Urine Neg (Neg); Ketones, Urine Neg (Neg); Leukocyte Esterase, Urine 3+ (Neg); Nitrite, Urine Pos (Neg); Protein, Urine 1+ (Neg); Specific Gravity, Urine 1.015 (1.003-1.022); Urobilinogen, Urine NORM (Normal)
[2023-03-18 19:49] LABS: Bacteria Many /hpf; Mucus Light (0-Heavy); White Blood Cells, Urine 50-100 /hpf (0-5)
[2023-03-18 19:50] LABS: Squamous Epithelial Cells Few /hpf (Few)
[2023-03-18] MEDS ORDERED: CEPH500 PO (21:19)
[2023-03-18 23:43] VITALS: BP 121/78
== END 2023-03-18 23:44 | disposition home or self-care (01) ==
LOC: ER 17:23
PROVIDERS: Emergency Medicine
DX: N39.0 Urinary tract infection, site not specified (principal); I50.9 Heart failure, unspecified; J44.9 Chronic obstructive pulmonary disease, unspecified; Z99.81 Dependence on supplemental oxygen; G47.30 Sleep apnea, unspecified; F17.210 Nicotine dependence, cigarettes, uncomplicated; Z79.01 Long term (current) use of anticoagulants; Z79.51 Long term (current) use of inhaled steroids; Z79.82 Long term (current) use of aspirin; Z79.899 Other long term (current) drug therapy; Z88.2 Allergy status to sulfonamides; Z91.040 Latex allergy status
CPT/HCPCS: 71045; 74177; 80053; 81001; 83690; 83880; 84484; 85025; 93005; 93010; 96365-59; 96375; 99285-25; J0696; J2270; J2405; Q9967

== ENCOUNTER 2023-03-19 18:55 | Inpatient (IN) | payer MEDICARE, OTHER ==
[~2023-03-19] VITALS: Ht 162.6 cm; Wt 148.1 kg
[2023-03-19 19:29] LABS: Base Excess Venous 7.3 mmol/L; PCO2 Venous 50.7 mmHg (38-42); pH Blood Venous 7.41 (7.34-7.37)
[2023-03-19 19:35] LABS: BASOPHILS ABSOLUTE AUTO 0.06 K/mm3 (0.00-0.23); BASOPHILS PERCENT AUTO 1 % (0-2); EOSINOPHILS ABSOLUTE AUTO 0.01 K/mm3 (0.00-0.68); EOSINOPHILS PERCENT AUTO 0 % (0-6); Hematocrit 39.9 % (33.0-51.0); Hemoglobin 11.5 g/dL (11.5-16.0); IMMATURE GRAN ABSOLUTE AUTO 0.19 K/mm3 (0.00-0.10); IMMATURE GRAN PERCENT AUTO 2 % (0-1); LYMPHOCYTES ABSOLUTE AUTO 1.21 K/mm3 (0.84-5.20); LYMPHOCYTES PERCENT AUTO 12 % (21-46); MONOCYTES ABSOLUTE AUTO 0.84 K/mm3 (0.16-1.47); MONOCYTES PERCENT AUTO 9 % (4-13); Mean Corpuscular HGB 24.8 pg (26.0-34.0); Mean Corpuscular HGB Conc 28.8 g/dL (31.5-36.5); Mean Corpuscular Volume 86 fL (80-100); Mean Platelet Volume 10.9 fL (9.1-12.4); NEUTROPHILS ABSOLUTE AUTO 7.51 K/mm3 (1.96-9.15); NEUTROPHILS PERCENT AUTO 77 % (41-73); NRBC ABSOLUTE 0.09 K/mm3 (0.00-0.02); NRBC Auto 0.9 /100 WBC (0.0-0.2); Platelet Count 204 K/mm3 (150-400); RDW Coefficient Variation 20.1 % (11.7-14.2); RDW Standard Deviation 62.2 fL (35.1-46.3); Red Blood Cell Count 4.63 M/mm3 (3.80-5.20); White Blood Cell Count 9.82 K/mm3 (4.00-11.30)
[2023-03-19 20:16] LABS: Albumin, Blood 2.6 g/dL (3.4-5.0); Albumin/Globulin Ratio 0.5 (0.8-1.8); Bilirubin, Total 1.2 mg/dL (0.1-1.0); Bun/Creatinine Ratio 12.2 (12.0-20.0); Calcium, Blood 8.1 mg/dL (8.5-10.1); Creatinine, Blood 2.3 mg/dL (0.40-1.00); Globulin, Blood 5.1 g/dL (2.2-4.0); Potassium, Blood 5.2 mmol/L (3.5-5.5); Total Protein, Blood 7.7 g/dL (6.4-8.2)
[2023-03-19 20:29] LABS: Influenza A, PCR NEGATIVE (NEGATIVE); Influenza B, PCR NEGATIVE (NEGATIVE); Resp Syncytial Virus, PCR NEGATIVE (NEGATIVE)
[2023-03-19 21:37] LABS: SARS-Cov-2 (COVID-19) PCR, MMC POSITIVE (NEGATIVE)
[2023-03-20] VITALS (9 sets, daily range): BP systolic 94–125; BP diastolic 54–77
[2023-03-20] MEDS ORDERED: Norco 10-325 T1 EACH PO (03:25)
--- NOTE | 2023-03-20 03:56 | NUR ---
ARRIVAL TO UNIT AFTER RECEIVING REPORT FROM ED RN, PATIENT ARRIVED TO UNIT AT APPROX 0250 VIA GURNEY. PATIENT TRANSFERRED TO BED VIA SLIDER SHEET. PATIENT ARRIVED ON 5L VIA NASAL CANNULA. PATIENT LETHARGIC, AROUSABLE TO STIMULI. SWITCHED TO BIPAP 14/6 40% BEGAN TO DESAT TO 70's-80's, REQUIRING 100% FI02 TO RECOVER. CURRENT SAT 96%. PATIENT ABLE TO COMMUNICATE THROUGH SHORT, MOSTLY ONE WORD STATEMENTS AT THIS TIME. PATIENT UNABLE TO PROVIDE ADMIT INFORMATION DUE TO INCREASED LETHARGY, INFORMATION GATHERED FROM ELECTRONIC RECORD. TELEMETRY SHOWING AFIB 80's. BP SOFT, SBP 90's-100's. MAP >65. IVF INFUSING PER EMAR. DENIES CHEST PAIN OR PRESSURE. REMAINS ON BIPAP. PATIENT INCONTINENT OF URINE AND STOOL. BEDBATH, ATTENDS CHANGE PERFORMED. PUREWICK IN PLACE. 3 PERSON ASSIST REQUIRED TO COMPLETE ADL's. CALL LIGHT IN REACH.
[2023-03-20 07:17] LABS: BASOPHILS ABSOLUTE AUTO 0.02 K/mm3 (0.00-0.23); BASOPHILS PERCENT AUTO 0 % (0-2); EOSINOPHILS PERCENT AUTO 0 % (0-6); Hematocrit 37.9 % (33.0-51.0); Hemoglobin 10.8 g/dL (11.5-16.0); IMMATURE GRAN ABSOLUTE AUTO 0.16 K/mm3 (0.00-0.10); IMMATURE GRAN PERCENT AUTO 2 % (0-1); LYMPHOCYTES ABSOLUTE AUTO 0.56 K/mm3 (0.84-5.20); LYMPHOCYTES PERCENT AUTO 7 % (21-46); MONOCYTES ABSOLUTE AUTO 0.38 K/mm3 (0.16-1.47); MONOCYTES PERCENT AUTO 5 % (4-13); Mean Corpuscular HGB 24.7 pg (26.0-34.0); Mean Corpuscular HGB Conc 28.5 g/dL (31.5-36.5); Mean Corpuscular Volume 87 fL (80-100); Mean Platelet Volume 10.9 fL (9.1-12.4); NEUTROPHILS ABSOLUTE AUTO 7.34 K/mm3 (1.96-9.15); NEUTROPHILS PERCENT AUTO 87 % (41-73); NRBC ABSOLUTE 0.05 K/mm3 (0.00-0.02); NRBC Auto 0.6 /100 WBC (0.0-0.2); Platelet Count 197 K/mm3 (150-400); RDW Coefficient Variation 19.7 % (11.7-14.2); RDW Standard Deviation 62.6 fL (35.1-46.3); Red Blood Cell Count 4.38 M/mm3 (3.80-5.20); White Blood Cell Count 8.46 K/mm3 (4.00-11.30)
[2023-03-20 07:51] LABS: Albumin, Blood 2.3 g/dL (3.4-5.0); Albumin/Globulin Ratio 0.5 (0.8-1.8); Bilirubin, Total 0.8 mg/dL (0.1-1.0); Bun/Creatinine Ratio 16.2 (12.0-20.0); Calcium, Blood 7.6 mg/dL (8.5-10.1); Creatinine, Blood 1.98 mg/dL (0.40-1.00); Potassium, Blood 5.1 mmol/L (3.5-5.5); Total Protein, Blood 7.3 g/dL (6.4-8.2)
--- NOTE | 2023-03-20 10:23 | NUR ---
PT SUMMARY: PT ALERT AND ORIENTED X4 KNOWS WHERE SHE'S AT ABLE TO STATE DATE, ANSWERS QUESTIONS APPROPRIATELY. AWAKE AND ALERT TRANSITIONED FROM BIPAP TO 6L OF O2 VIA NASAL CANNULA PT ABLE TO TOLERATE. DIET RESUMED, PT ABLE TO EAT AND DRINK WITH NO ISSUES SWALLOW MEDS WHOLE WITH WATER. VITALS HRR AFIB AT 80'S, SBP 100'S, AFEBRILE. PT DENIES PAIN/DISCOMFORT MILD SOB WITH MOVEMENT. INCONTINENT OF BOTH BOWEL AND BLADDER PUREWICK IN PLACE. PER PT SHE HAS 2 CAREGIVERS AND USES RUTHIE LIFT TO TRANSFER TO HER MOTORIZED WHEELCHAIR. NS RUNNING AT 75MLS/HR. PT REPOSITIONED IN BED, ORAL CARE PROVIDED. NO OTHER ISSUES AT THIS TIME, CALL LIGHTS IN REACH WILL CONTINUE TO MONITOR
--- NOTE | 2023-03-20 17:55 | NUR ---
PT SUMMARY: NO ACUTE CHANGE FOR THE SHIFT. VITALS HRR AFIB 80-90'S, SBP 110'S, SATS ABOVE 90% ON 6L OF 02 ALTERNATING BIPAP 14/6 50% FIO2. PT CANT TOLERATE LAYING FLAT, DESATS WITH ACTIVITY/MOVEMENT. PT ALERT AND ORIENTED X3-4 HAS SOME CONFUSION EPISODES TODAY LIKE ASKING RANDOM QUESTIONS, PT WAS EASILY REORIENTED. PT HAS BEEN COOPERATIVE AND PLEASANT WITH CARE, TOLERATING FOOD AND LIQUIDS. INCONTINENT AND UNMEASURED VOIDS THROUGH PUREWICK. PT TRANSFERRED TO 11 FOR A LIFT ROOM AND BARIATRIC BED. NO OTHER ISSUES REPORTED, PT CONTINUES ON IV ABO, POWERGLIDE PLACED ON MARCELLE, GOOD BLOOD RETURN. PT NOW EATING DINNER. CALL LIGHTS IN REACH WILL REPORT TO ONCOMING SHIFT
[2023-03-21] VITALS (7 sets, daily range): BP systolic 113–135; BP diastolic 66–88
[2023-03-21 04:52] LABS: BASOPHILS ABSOLUTE AUTO 0.02 K/mm3 (0.00-0.23); BASOPHILS PERCENT AUTO 0 % (0-2); EOSINOPHILS PERCENT AUTO 0 % (0-6); Hematocrit 40.1 % (33.0-51.0); Hemoglobin 11.4 g/dL (11.5-16.0); IMMATURE GRAN ABSOLUTE AUTO 0.12 K/mm3 (0.00-0.10); IMMATURE GRAN PERCENT AUTO 1 % (0-1); LYMPHOCYTES ABSOLUTE AUTO 0.53 K/mm3 (0.84-5.20); LYMPHOCYTES PERCENT AUTO 5 % (21-46); MONOCYTES ABSOLUTE AUTO 0.32 K/mm3 (0.16-1.47); MONOCYTES PERCENT AUTO 3 % (4-13); Mean Corpuscular HGB 24.9 pg (26.0-34.0); Mean Corpuscular HGB Conc 28.4 g/dL (31.5-36.5); Mean Corpuscular Volume 88 fL (80-100); Mean Platelet Volume 11.3 fL (9.1-12.4); NEUTROPHILS ABSOLUTE AUTO 9.18 K/mm3 (1.96-9.15); NEUTROPHILS PERCENT AUTO 90 % (41-73); Platelet Count 221 K/mm3 (150-400); RDW Coefficient Variation 19.9 % (11.7-14.2); RDW Standard Deviation 62.6 fL (35.1-46.3); Red Blood Cell Count 4.58 M/mm3 (3.80-5.20); White Blood Cell Count 10.17 K/mm3 (4.00-11.30)
--- NOTE | 2023-03-21 05:05 | NUR ---
END OF SHIFT NOTE: NO ACUTE EVENTS THIS SHIFT. PT A&O X3-4 T/O SHIFT, ABLE TO CALL APPROPRIATELY AND COMMUNICATE NEEDS W/ STAFF. FORGETFUL AT TIMES BUT EASILY REDIRECTABLE. HR 90'S, AFIB ON TELE. BP STABLE, MAP >65. PT DENIES CHEST PAIN/PRESSURE. SPO2 >93% ON 5L NC WHILE AWAKE, BIPAP 14/6 W/ FIO2 40% WHILE SLEEPING. AFEBRILE. PUREWICK IN PLACE DRAINING DARK, KAHLIL URINE TO SUCTION. NO BM'S THIS SHIFT. TOLERATING PO INTAKE WELL. REPOSITIONING T/O SHIFT W/ MAX STAFF ASSIST. PT HAS SLEPT FOR MAJORITY OF THE NIGHT. NO OTHER EVENTS. CALL LIGHT WITHIN REACH, BED IN LOWEST POSITION. WILL REPORT TO ONCOMING RN.
[2023-03-21 06:09] LABS: Albumin, Blood 2.8 g/dL (3.4-5.0); Albumin/Globulin Ratio 0.5 (0.8-1.8); Bilirubin, Total 0.5 mg/dL (0.1-1.0); Bun/Creatinine Ratio 19.9 (12.0-20.0); Calcium, Blood 8.3 mg/dL (8.5-10.1); Creatinine, Blood 1.61 mg/dL (0.40-1.00); Globulin, Blood 5.1 g/dL (2.2-4.0); Potassium, Blood 4.9 mmol/L (3.5-5.5); Total Protein, Blood 7.9 g/dL (6.4-8.2)
--- NOTE | 2023-03-21 09:19 | NUR ---
CARE ASSUMPTION this rn assumed care at 0700. vital signs stable. spo2 >95% on 4l nc. tele afib 90s. patient is alert and oriented x4. perrla. patient is able to make needs known and uses call light appropriately. patient reports no pain, chest pain/pressure or shortness of breath. patient states she is on her baseline oxygen and that her caregiver is bringing in her home triology. see shift assessment for further detials. md lawrence and team in to see patient this am and discussed plan of care. continuing abx and starting one bag of LR. plan of care is up to date. call light within reach.
--- NOTE | 2023-03-21 09:47 | NUR ---
"Spiritual Care Visit | Pt. request Pt. is awake in bed and welcomes my visit. Pt. is pleasant but is in isolation and verbalizes that she doesn't remember requesting the medical observer. Facilitated a short life review. Pt. displays evidence of being engaged and aware. Prayed with Pt. Pt. verbalized gratitude for the spiritual care visit and welcomed this medical observer to return."
--- NOTE | 2023-03-21 17:51 | NUR ---
shift summary patient remains pleasant throughout the shift. patient vitals remain stable. patient has home bipap machine in room that has been set up. patient has intermittent forgetfulness and will repeat questions that have been answered. patient remains alert and oriented x4, besides the forgetfullnes with questions. no acute changes. plan of care remains up to date
[2023-03-22 04:09] VITALS: BP 111/95
[2023-03-22 04:26] LABS: BASOPHILS ABSOLUTE AUTO 0.01 K/mm3 (0.00-0.23); BASOPHILS PERCENT AUTO 0 % (0-2); EOSINOPHILS PERCENT AUTO 0 % (0-6); Hematocrit 39.6 % (33.0-51.0); Hemoglobin 11.2 g/dL (11.5-16.0); IMMATURE GRAN ABSOLUTE AUTO 0.05 K/mm3 (0.00-0.10); IMMATURE GRAN PERCENT AUTO 1 % (0-1); LYMPHOCYTES ABSOLUTE AUTO 0.43 K/mm3 (0.84-5.20); LYMPHOCYTES PERCENT AUTO 5 % (21-46); MONOCYTES ABSOLUTE AUTO 0.28 K/mm3 (0.16-1.47); MONOCYTES PERCENT AUTO 3 % (4-13); Mean Corpuscular HGB 24.5 pg (26.0-34.0); Mean Corpuscular HGB Conc 28.3 g/dL (31.5-36.5); Mean Corpuscular Volume 87 fL (80-100); Mean Platelet Volume 10.5 fL (9.1-12.4); NEUTROPHILS ABSOLUTE AUTO 7.57 K/mm3 (1.96-9.15); NEUTROPHILS PERCENT AUTO 91 % (41-73); NRBC ABSOLUTE 0.13 K/mm3 (0.00-0.02); NRBC Auto 1.6 /100 WBC (0.0-0.2); Platelet Count 207 K/mm3 (150-400); RDW Coefficient Variation 19.7 % (11.7-14.2); RDW Standard Deviation 62.1 fL (35.1-46.3); Red Blood Cell Count 4.57 M/mm3 (3.80-5.20); White Blood Cell Count 8.34 K/mm3 (4.00-11.30)
--- NOTE | 2023-03-22 05:04 | NUR ---
END OF SHIFT NOTE: NO ACUTE EVENTS THIS SHIFT. PT A&OX4 T/O SHIFT, ABLE TO CALL APPROPRIATELY AND COMMUNICATE NEEDS W/ STAFF. FORGETFUL AT TIMES BUT EASILY REDIRECTABLE. HR 90'S AFIB ON TELE. BP STABLE, MAP >65. PT DENIES CHEST PAIN/PRESSURE. SPO2 >93% ON 3.5L NC WHILE AWAKE, INCREASES TO 5-7L WHILE COUGHING DUE TO DESATS INTO 80'S. HOME BIPAP W/ 5L BLEED WHILE SLEEPING. AFEBRILE. PUREWICK IN PLACE DRAINING DARK, KAHLIL URINE TO SUCTION. PW REPLACED X2 OVERNIGHT. NO BM'S THIS SHIFT. TOLERATING PO INTAKE WELL. REPOSITIONING T/O SHIFT W/ MAX STAFF ASSIST. EDUCATION PROVIDED BY THIS RN ON PRESSURE ULCER PREVENTION PT HAS BEEN RESISTANT TO REPOSITIONING STATING "BUT I HAVE NEVER HAD A PRESSURE ULCER FROM LAYING DOWN"; PT VOICED UNDERSTANDING OF EDUCATION AND HAS ALLOWED STAFF TO CONTINUE W/ REPOSITIONING. C/O LOW BACK PAIN, MEDICATED W/ FENTANYL PER EMAR. PT HAS SLEPT FOR MAJORITY OF THE NIGHT. NO OTHER EVENTS. CALL LIGHT WITHIN REACH, BED IN LOWEST POSITION. WILL REPORT TO ONCOMING RN.
[2023-03-22 05:15] LABS: Albumin, Blood 2.8 g/dL (3.4-5.0); Albumin/Globulin Ratio 0.5 (0.8-1.8); Bilirubin, Total 0.5 mg/dL (0.1-1.0); Bun/Creatinine Ratio 26.3 (12.0-20.0); Calcium, Blood 8.3 mg/dL (8.5-10.1); Creatinine, Blood 1.33 mg/dL (0.40-1.00); Globulin, Blood 5.1 g/dL (2.2-4.0); Potassium, Blood 4.9 mmol/L (3.5-5.5); Total Protein, Blood 7.9 g/dL (6.4-8.2)
[2023-03-22 08:09] VITALS: BP 125/58
--- NOTE | 2023-03-22 10:23 | NUR ---
CARE ASSUMPTION this rn assumed care at 0700. vital signs stable spo2 >90% on 4l nc, patient baseline. patient is alert and oriented x4. perrla. patient is forgetful when it comes to questions. patient reports back pain and provided with a warm blackent and repositioning. patient reports no shortness of breath or chest pain/pressure. lung sounds are dim throughout bilaterally. see shift assessment for further detials. md more and team in to see patient. patient made medical status with tele. sister, eden, called and given update. sister informed this rn and is going to inform her wound care technician that they have found another caregiver, so patient has two caregivers again. and this caregiver has worked with diana before and is trained on keyla lifts.
[2023-03-22 11:59] VITALS: BP 132/93
[2023-03-22 17:24] VITALS: BP 139/82
--- NOTE | 2023-03-22 17:54 | NUR ---
shift summary patient neuro remains unchanged. vital signs stable. patient has placement at [facility] and will hopefully be able to go there saturday once insurance has been approved. no acute changes. plan of care remains up to date.
[2023-03-22 19:35] VITALS: BP 120/74
[2023-03-23 04:27] VITALS: BP 119/79
[2023-03-23 04:46] LABS: BASOPHILS ABSOLUTE AUTO 0.01 K/mm3 (0.00-0.23); BASOPHILS PERCENT AUTO 0 % (0-2); EOSINOPHILS PERCENT AUTO 0 % (0-6); Hematocrit 38.9 % (33.0-51.0); Hemoglobin 10.9 g/dL (11.5-16.0); IMMATURE GRAN ABSOLUTE AUTO 0.04 K/mm3 (0.00-0.10); IMMATURE GRAN PERCENT AUTO 1 % (0-1); LYMPHOCYTES ABSOLUTE AUTO 0.71 K/mm3 (0.84-5.20); LYMPHOCYTES PERCENT AUTO 9 % (21-46); MONOCYTES ABSOLUTE AUTO 0.58 K/mm3 (0.16-1.47); MONOCYTES PERCENT AUTO 7 % (4-13); Mean Corpuscular HGB 24.6 pg (26.0-34.0); Mean Corpuscular Volume 88 fL (80-100); Mean Platelet Volume 11.1 fL (9.1-12.4); NEUTROPHILS ABSOLUTE AUTO 6.54 K/mm3 (1.96-9.15); NEUTROPHILS PERCENT AUTO 83 % (41-73); NRBC ABSOLUTE 0.16 K/mm3 (0.00-0.02); Platelet Count 206 K/mm3 (150-400); RDW Coefficient Variation 19.4 % (11.7-14.2); RDW Standard Deviation 62.5 fL (35.1-46.3); Red Blood Cell Count 4.43 M/mm3 (3.80-5.20); White Blood Cell Count 7.88 K/mm3 (4.00-11.30)
[2023-03-23 05:06] LABS: Bun/Creatinine Ratio 31.3 (12.0-20.0); Calcium, Blood 8.5 mg/dL (8.5-10.1); Creatinine, Blood 1.15 mg/dL (0.40-1.00); Potassium, Blood 4.4 mmol/L (3.5-5.5)
--- NOTE | 2023-03-23 05:08 | NUR ---
END OF SHIFT NOTE: NO ACUTE EVENTS THIS SHIFT. PT A&OX4 T/O SHIFT, ABLE TO CALL APPROPRIATELY AND COMMUNICATE NEEDS W/ STAFF. FORGETFUL AT TIMES BUT EASILY REDIRECTABLE. HR 90'S, AFIB ON TELE. BP STABLE, MAP >65. PT DENIES CHEST PAIN/PRESSURE. SPO2 >93% ON 4L NC WHILE AWAKE, HOME BIPAP W/ 5L BLEED WHILE SLEEPING. AFEBRILE. PUREWICK IN PLACE DRAINING KAHLIL URINE TO SUCTION. NO BM'S THIS SHIFT. TOLERATING PO INTAKE WELL. REPOSITIONING Q2HR T/O SHIFT W/ LIFT ASSIST. C/O LOW BACK PAIN, MEDICATED W/ NORCO PER EMAR. PT HAS SLEPT FOR MAJORITY OF THE NIGHT. NO OTHER EVENTS. CALL LIGHT WITHIN REACH, BED IN LOWEST POSITION. WILL REPORT TO ONCOMING RN.
[2023-03-23 08:09] VITALS: BP 135/109
--- NOTE | 2023-03-23 13:41 | NUR ---
UPDATE PT REMAINS ALERT AND ORIENTED. BP STABLE. HR REMAINS AFIB 80'S. PT WAS OFF OF HOME BIPAP FOR APPROXIMATELY 3 HOURS THIS AM ON 3L NC WITH SATS >90%. PT PLACED BACK ON BIPAP BECAUSE SHE FELL ASLEEP. PT COMPLAINED OF CHRONIC BACK PAIN AND WAS MEDICATED PER EMAR. PT PROVIDED BED BATH TODAY. PUREWICK IN PLACE FOR INCONTINENCE. PT REPOSITIONED Q2H. BED ASSIGNMENT PROVIDED AND REPORT GIVEN TO TEAGAN CHERY. PT TO BE TAKEN UP ON BARIATRIC BED
--- NOTE | 2023-03-23 18:56 | NUR ---
SHIFT SUMMARY PT TX'D FROM PCU 11 TO RM 325 THIS AFTERNOON. PT IS MORBIDLY OBESE ON BARIATRIC BED. ADMITTED FOR RESP FAILURE/COVID. HX COPD, CHF, MAREN; ON BIPAP, AND A-FIB. PT WAITING FOR BED AT [facility] ON SATURDAY. PER REPORT, ONE OF PT'S CARE GIVERS ARE ILL WELL AND UNABLE TO CARE FOR PT. PT TO GO TO SNF UNTIL [facility]RI[facility] ASSOCIATE ABLE TO CARE FOR PT AT HOME. PER REPORT, PT NOT HAVING ANY BM'S SINCE ADMIT; DR DOYLE NOTIFIED FOR BOWEL CARE. GIVEN PER EMAR. PT ABLE TO FEED HERSELF. MEDS TAKEN WHOLE WITH WATER. PT HAS REMAINED ON BIPAP, WHILE NAPPING, MOST OF THE AFTERNOON. PT ON 2.5L O2 WHEN AWAKE. DENIED FURTHER NEEDS AT THIS TIME. REPORT GIVEN TO ONCOMING MIRI.
[2023-03-23 21:12] VITALS: BP 115/80
--- NOTE | 2023-03-23 22:22 | NUR ---
RECEIVED MESSAGE TO CALL FLORESITA (PATIENT'S SISTER) [phone]. SISTER IS CONCERNED ABOUT PATIENT TRANSFERRING TO [facility] ON SATURDAY. SHE FEELS THAT HER SISTER IS NOT READY TO LEAVE THE HOSPITAL AND WOULD LIKE TO DISCUSS THIS WITH THE PHYSICIAN TOMORROW. RECIEVED MESSAGE FROM FLORESITA (PATIENT'S BEST FRIEND). GAVE UPDATE THAT PATIENT IS SLEEPING AND DOING GOOD.
--- NOTE | 2023-03-24 04:19 | NUR ---
PT. NOW ON 2L NC WHICH IS HER BASELINE. PROBABLE DISCHARGE TO [facility] ON SATURDAY. NORCO GIVEN ONCE FOR PAIN CONTROL. PATIENT REFUSED TO TURN IN BED. PATIENT DECLINED SUPPOSITORY. NO BM OVERNIGHT. PATIENT'S SISTER CONCERNED ABOUT HER GOING TO [facility] ON SATURDAY AND WOULD LIKE TO SPEAK TO MD AND/OR CASE MANAGEMENT. BED IN LOW POSITION. CALL LIGHT WITHIN REACH.
[2023-03-24 05:03] VITALS: BP 101/70
[2023-03-24 06:11] LABS: Hematocrit 39.6 % (33.0-51.0); Hemoglobin 11.1 g/dL (11.5-16.0); Mean Corpuscular HGB 24.7 pg (26.0-34.0); Mean Corpuscular Volume 88 fL (80-100); Mean Platelet Volume 11.4 fL (9.1-12.4); NRBC ABSOLUTE 0.14 K/mm3 (0.00-0.02); NRBC Auto 1.9 /100 WBC (0.0-0.2); Platelet Count 190 K/mm3 (150-400); RDW Coefficient Variation 19.2 % (11.7-14.2); RDW Standard Deviation 61.7 fL (35.1-46.3); White Blood Cell Count 7.25 K/mm3 (4.00-11.30)
[2023-03-24 07:00] LABS: Anion Gap Unable to Calculate mmol/L (6-16); Blood Urea Nitrogen 36 mg/dL (8-24); Bun/Creatinine Ratio 34.6 (12.0-20.0); CO2, Blood 35 mmol/L (21-32); Calcium, Blood 8.5 mg/dL (8.5-10.1); Chloride, Blood 100 mmol/L (98-108); Creatinine, Blood 1.04 mg/dL (0.40-1.00); Glomerular Filtration Rate 58 (60-); Glucose, Blood 105 mg/dL (70-99); Potassium, Blood 4.8 mmol/L (3.5-5.5); Sodium, Blood 134 mmol/L (136-145)
[2023-03-24 07:43] VITALS: BP 103/64
[2023-03-24 17:24] VITALS: BP 113/63
--- NOTE | 2023-03-24 18:25 | NUR ---
SHIFT SUMMARY PT RESTING QUIETLY AT START OF SHIFT, ON BIPAP. PT WOKE FOR BREAKFAST, BUT DIDN'T EAT MUCH AT ALL, NOR FOR LUNCH. PT IS SITTING UP EATING DINNER WELL NOW THOUGH. PT WAS VERY NONCOMPLIANT WITH O2 NC AND BIPAP TODAY, NOT LEAVING IT ON FOR MORE THAN A FEW MINUTES AT A TIME. PT ALSO KEPT TEARING OFF OXIMETRY PROBES REPEATEDLY, FOR HOURS. PROBES NOW WORKING ON TOE, OUT OF REACH OF PT. BIOX WNL'S; UPPER 90'S. BOWEL CARE GIVEN AGAIN TODAY; PT HAVING EX LRG SOFT BM USING BEDPAN. PT REPOSITIONED OFF BUTTOCKS THRU OUT SHIFT. PT MEDICATED ONCE THIS SHIFT FOR C/O PAIN. BIPAP TO BE PLACED WHEN PT FINISHED WITH DINNER. DENIED FURTHER NEEDS AT THIS TIME. CALL LT IN REACH.
[2023-03-24 21:20] VITALS: BP 114/68
[2023-03-25 05:54] LABS: Hematocrit 39.4 % (33.0-51.0); Hemoglobin 11.3 g/dL (11.5-16.0); Mean Corpuscular HGB 24.8 pg (26.0-34.0); Mean Corpuscular HGB Conc 28.7 g/dL (31.5-36.5); Mean Corpuscular Volume 86 fL (80-100); Mean Platelet Volume 11.5 fL (9.1-12.4); NRBC ABSOLUTE 0.05 K/mm3 (0.00-0.02); NRBC Auto 0.7 /100 WBC (0.0-0.2); Platelet Count 188 K/mm3 (150-400); RDW Standard Deviation 59.7 fL (35.1-46.3); Red Blood Cell Count 4.56 M/mm3 (3.80-5.20); White Blood Cell Count 6.77 K/mm3 (4.00-11.30)
[2023-03-25 06:10] LABS: Albumin, Blood 2.8 g/dL (3.4-5.0); Anion Gap 2 mmol/L (6-16); Blood Urea Nitrogen 33 mg/dL (8-24); Bun/Creatinine Ratio 39.8 (12.0-20.0); CO2, Blood 35 mmol/L (21-32); Calcium, Blood 8.3 mg/dL (8.5-10.1); Chloride, Blood 101 mmol/L (98-108); Creatinine, Blood 0.83 mg/dL (0.40-1.00); Glomerular Filtration Rate 76 (60-); Glucose, Blood 108 mg/dL (70-99); Phosphorus, Blood 2.1 mg/dL (2.5-4.9); Sodium, Blood 138 mmol/L (136-145)
[2023-03-25 06:11] VITALS: BP 118/76
--- NOTE | 2023-03-25 07:40 | NUR ---
SHIFT SUMMARY LIZETH WAS ALERT AND ORIENTED X3 AT THE START OF SHIFT, BUT HER THOUGHT PROCESS SEEMED A LITTLE CONFUSED AND SLOW. PT WAS PUT ON VIDEO MONITORING D/T COMPLIANCE ISSUES WITH BIPAP, THREAD SPINNER REDIRECTION HAS BEEN SUCCESSFUL AT DETERING HER FROM REMOVING HER MASK SO FAR. CONT BIOX MONITORING IN PROGRESS, 02 SATS IN THE MID - HIGH 90'S PT RESTING IN BED IN A LOW POSITION WITH CALL LIGHT IN REACH AND VIDEO MONITOR IN PROGRESS.
[2023-03-25 07:48] VITALS: BP 120/80
[2023-03-25] MEDS ORDERED: XARELTO20 MG PO (13:49)
[2023-03-25] MEDS ORDERED: BISA10S PR (13:50)
[2023-03-25] MEDS ORDERED: SENN187 PO (13:50)
[2023-03-25] MEDS ORDERED: MIRALAX17 GM PO (13:51)
[2023-03-25 15:36] VITALS: BP 115/78
--- NOTE | 2023-03-25 17:04 | NUR ---
PATIENT A/O X2-3, BEDBOUND AT BASELINE. VSS, WEANED TO 2LO2 VIA NC. TRILOGY AT BEDTIME. L LEG ABRASION OPEN TO AIR, OTHERWISE SKIN INTACT. TOLERATING REGULAR DIET. LARGE BM THIS AFTERNOON. PUREWICK IN PLACE FOR INCONTINENCE, DIURESING. NORCO GIVEN TO TREAT CHRONIC PAIN WITH STATED RELIEF. AWAITING PLACEMENT AT [facility]. RAPID COVID POSITIVE TODAY, IN ENHANCED ISOLATION PRECAUTIONS.
[2023-03-25 19:39] VITALS: BP 113/62
[2023-03-26 02:47] VITALS: BP 123/63
--- NOTE | 2023-03-26 05:57 | NUR ---
SHIFT SUMMARY: PT IS ADMITTED FOR ACUTE HYPOXIC RESPIRATORY FAILURE AND IS A FULL CODE. IS ALERT AND ABLE TO MAKE MOST NEEDS KNOWN. HAS BEEN CONFUSED THROUGH MOST OF SHIFT UNABLE TO SAY ANYTHING THAT DIDN T PERTAIN TO SELF. ADLs HAVE BEEN MOSTLY 2P. IS CURRENTLY ON ENHANCED DROPLET PRECAUTIONS DUE TO BEING COVID POSITIVE. WAS GIVEN PRN PAIN MANAGEMENT X1. MIDLINE IV TO UPPER RIGHT IS PATENT WITH A DRESSING THAT IS CDI. SHE IS CURRENTLY USING A PUREWICK WHAT IS PRODUCING CLEAR YELLOW URINE IN MODERATE AMOUNTS.
[2023-03-26 06:20] LABS: Hematocrit 39.6 % (33.0-51.0); Hemoglobin 11.4 g/dL (11.5-16.0); Mean Corpuscular HGB 24.5 pg (26.0-34.0); Mean Corpuscular HGB Conc 28.8 g/dL (31.5-36.5); Mean Corpuscular Volume 85 fL (80-100); Mean Platelet Volume 11.4 fL (9.1-12.4); NRBC ABSOLUTE 0.02 K/mm3 (0.00-0.02); NRBC Auto 0.2 /100 WBC (0.0-0.2); Platelet Count 215 K/mm3 (150-400); RDW Coefficient Variation 19.1 % (11.7-14.2); RDW Standard Deviation 59.4 fL (35.1-46.3); Red Blood Cell Count 4.65 M/mm3 (3.80-5.20); White Blood Cell Count 8.69 K/mm3 (4.00-11.30)
[2023-03-26 06:47] LABS: Albumin, Blood 2.8 g/dL (3.4-5.0); Albumin/Globulin Ratio 0.7 (0.8-1.8); Bilirubin, Total 0.9 mg/dL (0.1-1.0); Bun/Creatinine Ratio 33.1 (12.0-20.0); Calcium, Blood 8.2 mg/dL (8.5-10.1); Creatinine, Blood 0.82 mg/dL (0.40-1.00); Globulin, Blood 4.2 g/dL (2.2-4.0)
[2023-03-26 07:27] VITALS: BP 118/67
--- NOTE | 2023-03-26 13:10 | NUR ---
Pt. is awake in bed when she welcomes my visit. Pt. is pleasant but displays evidence of being frustrated. Facilited a current life review and sought to normalize the Pt. expereince. Pt. verbalized an expectation that she would be discharged to [facility]. Pt. did not display interest in continuing our conversation so I prayed for the Pt. Pt. verbalized gratitude for the spiritual care visit and requested I ask a nurse to come and see Pt.
[2023-03-26 15:11] VITALS: BP 119/71
--- NOTE | 2023-03-26 18:00 | NUR ---
CALLED REPORT TO NURSE AT [facility]. ALL PERSONAL BELONGINGS SENT WITH PT INCLUDING HOME BIPAP. POWERGLIDE REMOVED BY AGENCY SERVICE COORDINATOR. PT TRANSPORTED TO [facility] BY [facility]. HARD SCRIPT SENT IN ENVELOPE WITH PT'S DISCHARGE INSTRUCTIONS, COPY ON CHART.
== END 2023-03-26 18:12 | DRG 177 ==
LOC: ER 18:55 → PCU 22:41 → ERHOLD 22:41 → MEDS 22:41 → PCU 03-20 02:35 → MEDS 03-23 14:25 → ENPENDDIS 03-25 12:35 → MEDS 03-25 23:35
PROVIDERS: Family Medicine; Internal Medicine; Student in an Organized Health Care Education/Training Program; ADMIT Internal Medicine
DX: U07.1 COVID-19 (principal); J12.82 Pneumonia due to coronavirus disease 2019; J96.21 Acute and chronic respiratory failure with hypoxia; J96.22 Acute and chronic respiratory failure with hypercapnia; N17.9 Acute kidney failure, unspecified; J44.0 Chronic obstructive pulmonary disease with (acute) lower respiratory infection; I27.0 Primary pulmonary hypertension; N39.0 Urinary tract infection, site not specified; J44.1 Chronic obstructive pulmonary disease with (acute) exacerbation; Z68.43 Body mass index [BMI] 50.0-59.9, adult; I50.32 Chronic diastolic (congestive) heart failure; Z28.21 Immunization not carried out because of patient refusal; R77.8 Other specified abnormalities of plasma proteins; N18.30 Chronic kidney disease, stage 3 unspecified; I48.91 Unspecified atrial fibrillation; K76.0 Fatty (change of) liver, not elsewhere classified; E03.9 Hypothyroidism, unspecified; K59.00 Constipation, unspecified; F17.210 Nicotine dependence, cigarettes, uncomplicated; M61.9 Calcification and ossification of muscle, unspecified; E66.01 Morbid (severe) obesity due to excess calories; Z85.41 Personal history of malignant neoplasm of cervix uteri
CPT/HCPCS: 0241U; 36415; 71045; 80048; 80053; 80069; 82803; 83605; 83880; 84484; 85025; 85027; 87086; 87426; 87811; 93005; 93010; 94640; 94644; 94660; 94664; 94762; 96365; 96366; 96367; 96372-59; 96375; 99285-25; A9270; C1751; C8929; J0456; J0696; J1644; J1885; J2405; J2930; J3010; J7030; J7050; J7120; J7512; P9047; Q9957

== ENCOUNTER 2024-01-09 10:04 | Inpatient (IN) | payer MEDICARE, OTHER ==
[~2024-01-09] VITALS: Ht 162.6 cm; Wt 129.2 kg
[~2024-01-09 10:04] MED LIST changes: +BISA10S PR; +MIRALAX17 GM PO; +SENN187 PO; +XARELTO20 MG PO
[2024-01-09] MEDS ORDERED: MethylPREDNISolone Sod Succ 125 MG Vial IV ONE (10:30)
[2024-01-09] MEDS ORDERED: NS 1,000 ML IV SCH (10:30)
[2024-01-09] MEDS ORDERED: levalbuterol HCL 1.25 MG/3 ML VIAL INH ONE (10:35)
[2024-01-09] MEDS ORDERED: NS 500 ML IV ONE (10:40)
[2024-01-09 11:02] LABS: BASOPHILS ABSOLUTE AUTO 0.04 K/mm3 (0.00-0.23); BASOPHILS PERCENT AUTO 0 % (0-2); EOSINOPHILS ABSOLUTE AUTO 0.19 K/mm3 (0.00-0.68); EOSINOPHILS PERCENT AUTO 2 % (0-6); Hematocrit 36.1 % (33.0-51.0); Hemoglobin 10.6 g/dL (11.5-16.0); IMMATURE GRAN ABSOLUTE AUTO 0.07 K/mm3 (0.00-0.10); IMMATURE GRAN PERCENT AUTO 1 % (0-1); LYMPHOCYTES ABSOLUTE AUTO 1.01 K/mm3 (0.84-5.20); LYMPHOCYTES PERCENT AUTO 10 % (21-46); MONOCYTES ABSOLUTE AUTO 0.64 K/mm3 (0.16-1.47); MONOCYTES PERCENT AUTO 6 % (4-13); Mean Corpuscular HGB 29.6 pg (26.0-34.0); Mean Corpuscular HGB Conc 29.4 g/dL (31.5-36.5); Mean Corpuscular Volume 101 fL (80-100); Mean Platelet Volume 11.3 fL (9.1-12.4); NEUTROPHILS ABSOLUTE AUTO 8.09 K/mm3 (1.96-9.15); NEUTROPHILS PERCENT AUTO 81 % (41-73); NRBC ABSOLUTE 0.02 K/mm3 (0.00-0.02); NRBC Auto 0.2 /100 WBC (0.0-0.2); Platelet Count 265 K/mm3 (150-400); RDW Coefficient Variation 16.4 % (11.7-14.2); RDW Standard Deviation 61.1 fL (35.1-46.3); Red Blood Cell Count 3.58 M/mm3 (3.80-5.20); White Blood Cell Count 10.04 K/mm3 (4.00-11.30)
[2024-01-09 11:18] LABS: Bun/Creatinine Ratio 19.4 (12.0-20.0); Calcium, Blood 8.6 mg/dL (8.5-10.1); Creatinine, Blood 0.88 mg/dL (0.40-1.00); Potassium, Blood 3.8 mmol/L (3.5-5.5)
[2024-01-09 11:30] LABS: Influenza A, PCR NEGATIVE (NEGATIVE); Influenza B, PCR NEGATIVE (NEGATIVE); Resp Syncytial Virus, PCR NEGATIVE (NEGATIVE); SARS-Cov-2 (COVID-19) PCR, MMC NEGATIVE (NEGATIVE)
[2024-01-09 13:33] LABS: Base Excess Venous 10.6 mmol/L; Bicarbonate Venous 31.4 mmol/L (24.0-30.0); PCO2 Venous 73.5 mmHg (38-42); pH Blood Venous 7.31 (7.34-7.37)
[2024-01-09] MEDS ORDERED: CefTRIAXone Sodium 1,000 MG in NS 100 ML IV ONE (14:00)
[2024-01-09] MEDS ORDERED: Doxycycline Hyclate 100 MG in Dextrose 5% 250 ML IV ONE (14:00)
[2024-01-09] MEDS ORDERED: Piperacillin/Tazobactam Sod 4.5 GM in NS 100 ML IV ONE (14:05)
[2024-01-09] MEDS ORDERED: ELIQUIS5 M2 PO (14:27)
[2024-01-09] MEDS ORDERED: BISA10S (14:27)
[2024-01-09] MEDS ORDERED: Acetaminophen650 M1 PO (14:27)
[2024-01-09] MEDS ORDERED: CLEARCANAL EARW15 ML BOTHEARS (14:29)
[2024-01-09] MEDS ORDERED: Norco 5-325 Ta1 EACH PO (14:30)
[2024-01-09] MEDS ORDERED: FURO40 PO (14:30)
[2024-01-09] MEDS ORDERED: LEVOTHYROXINE150 MC9 PO (14:31)
[2024-01-09] MEDS ORDERED: IPRAT-ALBUT 0.5-3 ML (14:31)
[2024-01-09] MEDS ORDERED: METO25 PO (14:32)
[2024-01-09] MEDS ORDERED: PANT40 PO (14:32)
[2024-01-09] MEDS ORDERED: MIRALAX17 GM PO (14:33)
[2024-01-09] MEDS ORDERED: POTA10T PO (14:33)
[2024-01-09] MEDS ORDERED: PROBIOTIC1 EA13 PO (14:34)
[2024-01-09] MEDS ORDERED: PROAIR DIGIHAL90 MCG INH (14:34)
[2024-01-09] MEDS ORDERED: PSYLLIUM FIBER0.4 GM PO (14:34)
[2024-01-09] MEDS ORDERED: MONT10T PO (14:35)
[2024-01-09] MEDS ORDERED: TRELEGY ELLIPT1 EACH INH (14:35)
[2024-01-09] MEDS ORDERED: SENNA LAXATIVE8.6 MG PO (14:35)
[2024-01-09] MEDS ORDERED: VENL75ER PO (14:36)
[2024-01-09] MEDS ORDERED: FLU VACC TS2024-25(6MOS UP)/PF 45 MCG/0.5 ML SYRINGE IM SCH (15:10)
[2024-01-09] MEDS ORDERED: Acetaminophen 325 MG TABLET PO PRN (15:10)
[2024-01-09] MEDS ORDERED: Polyethylene Glycol 3350 17 gm PO PRN (15:15)
[2024-01-09] MEDS ORDERED: Albuterol 2.5 MG/3 ML VIAL INH PRN (17:00)
[2024-01-09] MEDS ORDERED: Budesonide 0.5 MG/2 ML RESP INH SCH (17:00)
[2024-01-09] MEDS ORDERED: Ipratropium/Albuterol SulF 2.5-0.5MG/3 ML Amp INH SCH (17:00)
[2024-01-09] MEDS ORDERED: Mometasone/Formoterol MDI 100/5 mcg 13 GM INH SCH (17:55)
[2024-01-09] MEDS ORDERED: Ipratropium Bromide INH 0.02% 0.5 mg/2.5ML Vial INH SCH (17:55)
[2024-01-09] MEDS ORDERED: Piperacillin/Tazobactam Sod 3.375 GM in NS 100 ML IV SCH ×2 (18:00→21:00)
[2024-01-09 18:42] LABS: Base Excess Venous 11.6 mmol/L; Bicarbonate Venous 33.3 mmol/L (24.0-30.0); PCO2 Venous 70.1 mmHg (38-42); pH Blood Venous 7.34 (7.34-7.37)
[2024-01-09] MEDS ORDERED: Lactobacil 2-S.Thermo-Bifido 1 1 Cap PO SCH (21:00)
[2024-01-09] MEDS ORDERED: Metoprolol Tartrate 25 MG Tab PO SCH (21:00)
[2024-01-09] MEDS ORDERED: Montelukast Sodium 10 MG Tab PO SCH (21:00)
[2024-01-09] MEDS ORDERED: Apixaban 5 MG Tab PO SCH (21:00)
[2024-01-09] MEDS ORDERED: HYDROcodone 5-APAP 325 TAB PO PRN (21:45)
[2024-01-10] VITALS (7 sets, daily range): BP systolic 96–139; BP diastolic 56–83
[2024-01-10 03:52] LABS: BASOPHILS ABSOLUTE AUTO 0.02 K/mm3 (0.00-0.23); BASOPHILS PERCENT AUTO 0 % (0-2); EOSINOPHILS PERCENT AUTO 0 % (0-6); Hematocrit 33.5 % (33.0-51.0); Hemoglobin 9.9 g/dL (11.5-16.0); IMMATURE GRAN ABSOLUTE AUTO 0.09 K/mm3 (0.00-0.10); IMMATURE GRAN PERCENT AUTO 1 % (0-1); LYMPHOCYTES ABSOLUTE AUTO 0.77 K/mm3 (0.84-5.20); LYMPHOCYTES PERCENT AUTO 10 % (21-46); MONOCYTES ABSOLUTE AUTO 0.41 K/mm3 (0.16-1.47); MONOCYTES PERCENT AUTO 5 % (4-13); Mean Corpuscular HGB 29.9 pg (26.0-34.0); Mean Corpuscular HGB Conc 29.6 g/dL (31.5-36.5); Mean Corpuscular Volume 101 fL (80-100); Mean Platelet Volume 11.5 fL (9.1-12.4); NEUTROPHILS ABSOLUTE AUTO 6.53 K/mm3 (1.96-9.15); NEUTROPHILS PERCENT AUTO 84 % (41-73); Platelet Count 254 K/mm3 (150-400); RDW Coefficient Variation 16.8 % (11.7-14.2); RDW Standard Deviation 61.1 fL (35.1-46.3); Red Blood Cell Count 3.31 M/mm3 (3.80-5.20); White Blood Cell Count 7.82 K/mm3 (4.00-11.30)
[2024-01-10 04:07] LABS: Bun/Creatinine Ratio 20.5 (12.0-20.0); Calcium, Blood 8.4 mg/dL (8.5-10.1); Creatinine, Blood 0.73 mg/dL (0.40-1.00); Potassium, Blood 3.6 mmol/L (3.5-5.5)
[2024-01-10 04:40] LABS: Base Excess Venous 13.2 mmol/L; Bicarbonate Venous 34.7 mmol/L (24.0-30.0); pH Blood Venous 7.33 (7.34-7.37)
--- NOTE | 2024-01-10 05:41 | NUR ---
SHIFT SUMMARY PATIENT ARRIVED TO PCU 04 AROUND 2029. PATIENT SLID OVER TO PCU BED. PATIENT ALERT, ORIENTED x3-4, ABLE TO MAKE NEEDS KNOWN. COOPERATIVE WITH CARE. MORE SOMNULENT THIS AM BUT WOKE EASILY TO VERBAL STIMULI. PATIENT ARRIVED ON V30 BIPAP AVAPS SETTINGS, ABLE TO TOLERATE BEING OFF BIPAP FOR BREAKS ON 6L NC, LOW TO MID 90%. BP STABLE. TELE READING AFIB. PUREWICK IN PLACE DRAINING DARK YELLOW URINE TO SUCTION. NO OTHER CHANGES SINCE ADMISSION. WILL REPORT TO DAY SHIFT RN.
[2024-01-10] MEDS ORDERED: Pantoprazole Sodium 40 MG Tab PO SCH (06:00)
[2024-01-10] MEDS ORDERED: Levothyroxine Sodium 0.15 MG Tab PO SCH (06:00)
[2024-01-10] MEDS ORDERED: Potassium Chloride 10 Meq Tablet SA PO SCH (09:00)
[2024-01-10] MEDS ORDERED: Enoxaparin 40 MG/0.4 ML SYR SC SCH (09:00)
[2024-01-10] MEDS ORDERED: Furosemide 40 MG Tab PO SCH (09:00)
[2024-01-10] MEDS ORDERED: MethylPREDNISolone Sod Succ 125 MG Vial IV SCH (12:00)
[2024-01-10] MEDS ORDERED: Azithromycin 500 MG in NS 250 ML IV SCH (12:30)
[2024-01-10] MEDS ORDERED: CefTRIAXone Sodium 1,000 MG in NS 100 ML IV SCH (13:30)
[2024-01-10] MEDS ORDERED: HYDROcodone 5-APAP 325 TAB PO PRN (13:42)
--- NOTE | 2024-01-10 17:40 | NUR ---
SHIFT SUMMARY PT A&Ox4, CALLS AND COMMUNICATES NEEDS APPROPRIATELY. BP STABLE, AFIB 80-100's, DENIES CP/PRESSURE. SpO2> 92% 2-5L VIA NC, PT NEEDING HIGHER FLOW WHEN REPOSITIONING AND LYING FLAT FOR ATTENDS CHANGES, RECOVERED QUICKLY, REPORTS SOB WHEN LYING FLAT. Q2 TURNS PROVIDED. ORAL/DENTURE CARE PROVIDED. PUREWICK IN PLACE, PATENT. PT REPORTS USING RUTHIE LIFT TO ELECTRIC WHEELCHAIR AT [facility]. C/O MILD/MOD PAIN IN LOWER BACK, MANAGED PER EMAR. NO OTHER EVENTS, WILL REPORT TO ONCOMING RN.
[2024-01-10] MEDS ORDERED: Furosemide 10 MG/ML 4ML Vial IV SCH (18:00)
[2024-01-11 03:02] VITALS: BP 103/68
[2024-01-11 04:14] LABS: Bun/Creatinine Ratio 17.7 (12.0-20.0); Calcium, Blood 8.4 mg/dL (8.5-10.1); Creatinine, Blood 0.85 mg/dL (0.40-1.00); Potassium, Blood 3.7 mmol/L (3.5-5.5)
--- NOTE | 2024-01-11 06:22 | NUR ---
SHIFT SUMMARY- Juliana had a good night, she was on 3L of oxygen with the NC until going to bed, and then RT switched her over to the V30 with 6L of oxygen bled into it. She did good on this, although she had a tendency to open her mouth wider than the face mask allowed, setting off the alarms multiple times throughout the night, causing the Spo2 to dip below 88% at some points. Patient was using purwick throughout the night, which meeasured her urine output successfully. No other needs throughout the night, mobility is very limited in the bed, staff assist with turns.
[2024-01-11 07:50] VITALS: BP 111/64
[2024-01-11] MEDS ORDERED: Furosemide 40 MG Tab PO SCH (09:00)
[2024-01-11] MEDS ORDERED: Azithromycin 250 MG Tab PO SCH (09:00)
[2024-01-11 11:31] VITALS: BP 103/60
[2024-01-11 15:07] VITALS: BP 106/63
--- NOTE | 2024-01-11 17:39 | NUR ---
SHIFT SUMMARY PT A&Ox4, CALLS AND COMMUNICATES NEEDS APPROPRIATELY. BP STABLE, AFIB 80-100's, DENIES CP/PRESSURE. SpO2> 92% 2-3L VIA NC, PT NEEDING HIGHER FLOW WHEN REPOSITIONING AND LYING FLAT FOR ATTENDS CHANGES, RECOVERED QUICKLY, REPORTS SOB WHEN LYING FLAT. Q2 TURNS PROVIDED. ORAL/DENTURE CARE PROVIDED. PUREWICK IN PLACE, PATENT. PT REFUSED USING LIFT TO GET TO RECLINER. C/O MILD/MOD PAIN IN LOWER BACK, MANAGED PER EMAR. NO OTHER EVENTS, WILL REPORT TO ONCOMING RN.
[2024-01-11 19:55] VITALS: BP 112/48
[2024-01-11] MEDS ORDERED: Sennosides 8.6 MG Tab PO SCH (21:00)
[2024-01-11] MEDS ORDERED: SENNA LEAF EXTRACT PO SCH (21:00)
[2024-01-11] MEDS ORDERED: [UNRECOGNIZED DRUG - OTHER] PO SCH (21:00)
[2024-01-11] MEDS ORDERED: Docusate Sodium 100 MG Cap PO SCH (21:00)
[2024-01-11 23:12] VITALS: BP 131/57
[2024-01-12 03:16] VITALS: BP 113/64
[2024-01-12 04:46] LABS: Bun/Creatinine Ratio 22.2 (12.0-20.0); Calcium, Blood 8.5 mg/dL (8.5-10.1); Creatinine, Blood 0.81 mg/dL (0.40-1.00); Potassium, Blood 3.5 mmol/L (3.5-5.5)
--- NOTE | 2024-01-12 05:32 | NUR ---
SHIFT SUMMARY PT A&O X4, ABLE TO MAKE NEEDS KNOWN, CALLS APPROPRIATELY. VSS, AFEBRILE, SPO2 >90% ON 2-5L NC, BIPAP WHILE ASLEEP. PAIN OF COCCYX, MEDICATED PER EMAR, REPOSITIONED FREQUENTLY. PW IN PLACE DRAINING YELLOW URINE. PT WITH TWO LOOSE BM'S THIS SHIFT. NO ACUTE EVENTS THIS SHIFT. PT IS RESTING IN BED, BREATHING EVEN AND UNLABORED, CALL LIGHT IN REACH.
[2024-01-12] MEDS ORDERED: Ipratropium/Albuterol SulF 2.5-0.5MG/3 ML Amp INH SCH (06:44)
[2024-01-12 09:23] VITALS: BP 128/69
[2024-01-12 11:17] VITALS: BP 115/60
[2024-01-12 11:48] LABS: SARS-Cov-2 (COVID-19) PCR, MMC NEGATIVE (NEGATIVE)
[2024-01-12] MEDS ORDERED: AMOCLA875 PO (13:31)
--- NOTE | 2024-01-12 14:46 | NUR ---
DISCHARGE SUMMARY PT A&Ox4, CALLS AND COMMUNICATES NEEDS APPROPRIATELY. BP STABLE, AFIB 80-100's, DENIES CP/PRESSURE. SpO2> 92% 2-3L VIA NC, PT NEEDING HIGHER FLOW WHEN REPOSITIONING AND LYING FLAT FOR ATTENDS CHANGES, RECOVERED QUICKLY, REPORTS SOB WHEN LYING FLAT. Q2 TURNS PROVIDED. ORAL/DENTURE CARE PROVIDED. PUREWICK IN PLACE, PATENT. PT REFUSED USING LIFT TO GET TO RECLINER. C/O MILD/MOD PAIN IN LOWER BACK, MANAGED PER EMAR. REPORT GIVEN TO BUD CHERY. DISCHARGE INSTRUCTION GIVEN TO PT AND SENT WITH EMS FOR TRANSFER. PT SLID OVER FROM HOSPITAL BED TO EMS GURNEY BY 4 CLININCAL STAFF MEMBERS AND PT LEFT AT APPROXIMATELY 1425.
[2024-01-13] MEDS ORDERED: ALBU2.5V5 INH (16:48)
== END 2024-01-12 14:30 | DRG 871 ==
LOC: ER 10:04 → PCU 15:05 → ERHOLD 15:05 → PCU 20:38
PROVIDERS: Emergency Medicine; Family Medicine; Internal Medicine; ADMIT Family Medicine
PROC: 5A09357 Assistance with Respiratory Ventilation, Less than 24 Consecutive Hours, Continuous Positive Airway Pressure (ICD-10-PCS; principal; 2024-01-10)
PROC: 3E03329 Introduction of Other Anti-infective into Peripheral Vein, Percutaneous Approach (ICD-10-PCS; 2024-01-10)
DX: A41.9 Sepsis, unspecified organism (principal); G92.8 Other toxic encephalopathy; J18.9 Pneumonia, unspecified organism; J96.21 Acute and chronic respiratory failure with hypoxia; J96.22 Acute and chronic respiratory failure with hypercapnia; I50.32 Chronic diastolic (congestive) heart failure; J44.0 Chronic obstructive pulmonary disease with (acute) lower respiratory infection; J44.1 Chronic obstructive pulmonary disease with (acute) exacerbation; Z68.43 Body mass index [BMI] 50.0-59.9, adult; E03.9 Hypothyroidism, unspecified; E66.01 Morbid (severe) obesity due to excess calories; K76.0 Fatty (change of) liver, not elsewhere classified; F17.210 Nicotine dependence, cigarettes, uncomplicated; I48.91 Unspecified atrial fibrillation; D64.9 Anemia, unspecified; R65.20 Severe sepsis without septic shock; G47.33 Obstructive sleep apnea (adult) (pediatric); I27.20 Pulmonary hypertension, unspecified; Z90.710 Acquired absence of both cervix and uterus; Z88.2 Allergy status to sulfonamides; Z91.040 Latex allergy status; Z85.42 Personal history of malignant neoplasm of other parts of uterus; Z79.899 Other long term (current) drug therapy; Z79.890 Hormone replacement therapy; Z79.01 Long term (current) use of anticoagulants
CPT/HCPCS: 0241U; 36415; 71045; 71260; 80048; 82803; 83605; 83880; 84484; 85025; 85379; 87040; 93005; 93010; 94640; 94660; 94664; 94762; 96361; 96374-59; 96375-59; 99285-25; A9270; J0456; J0696; J1940; J2543; J2919; J7030; J7050; J7060; J7614; Q9967; U0002

== ENCOUNTER 2024-01-13 13:59 | Emergency (ER) | payer MEDICARE, OTHER ==
[~2024-01-13] VITALS: Ht 172.7 cm; Wt 167.8 kg
[~2024-01-13 13:59] MED LIST changes: +AMOCLA875 PO; +Acetaminophen650 M1 PO; +BISA10S; +CLEARCANAL EARW15 ML BOTHEARS; +ELIQUIS5 M2 PO; +FURO40 PO; +IPRAT-ALBUT 0.5-3 ML; +LEVOTHYROXINE150 MC9 PO; +Norco 5-325 Ta1 EACH PO; +POTA10T PO; +PROAIR DIGIHAL90 MCG INH; +PSYLLIUM FIBER0.4 GM PO; +SENNA LAXATIVE8.6 MG PO; +TRELEGY ELLIPT1 EACH INH; +VENL75ER PO
[2024-01-13 14:43] LABS: BASOPHILS ABSOLUTE AUTO 0.02 K/mm3 (0.00-0.23); BASOPHILS PERCENT AUTO 0 % (0-2); EOSINOPHILS ABSOLUTE AUTO 0.42 K/mm3 (0.00-0.68); EOSINOPHILS PERCENT AUTO 5 % (0-6); Hematocrit 39.5 % (33.0-51.0); Hemoglobin 11.6 g/dL (11.5-16.0); IMMATURE GRAN ABSOLUTE AUTO 0.05 K/mm3 (0.00-0.10); IMMATURE GRAN PERCENT AUTO 1 % (0-1); LYMPHOCYTES ABSOLUTE AUTO 0.69 K/mm3 (0.84-5.20); LYMPHOCYTES PERCENT AUTO 8 % (21-46); MONOCYTES ABSOLUTE AUTO 0.49 K/mm3 (0.16-1.47); MONOCYTES PERCENT AUTO 6 % (4-13); Mean Corpuscular HGB 29.7 pg (26.0-34.0); Mean Corpuscular HGB Conc 29.4 g/dL (31.5-36.5); Mean Corpuscular Volume 101 fL (80-100); Mean Platelet Volume 10.8 fL (9.1-12.4); NEUTROPHILS ABSOLUTE AUTO 7.29 K/mm3 (1.96-9.15); NEUTROPHILS PERCENT AUTO 81 % (41-73); Platelet Count 293 K/mm3 (150-400); RDW Coefficient Variation 16.6 % (11.7-14.2); RDW Standard Deviation 62.5 fL (35.1-46.3); White Blood Cell Count 8.96 K/mm3 (4.00-11.30)
[2024-01-13 14:57] LABS: Albumin, Blood 2.4 g/dL (3.4-5.0); Albumin/Globulin Ratio 0.4 (0.8-1.8); Bilirubin, Total 0.5 mg/dL (0.1-1.0); Calcium, Blood 8.5 mg/dL (8.5-10.1); Creatinine, Blood 0.75 mg/dL (0.40-1.00); Globulin, Blood 5.5 g/dL (2.2-4.0); Magnesium, Blood 1.7 mg/dL (1.6-2.4); Potassium, Blood 3.6 mmol/L (3.5-5.5); Total Protein, Blood 7.9 g/dL (6.4-8.2)
[2024-01-13 15:28] LABS: Influenza A, PCR NEGATIVE (NEGATIVE); Influenza B, PCR NEGATIVE (NEGATIVE); Resp Syncytial Virus, PCR NEGATIVE (NEGATIVE); SARS-Cov-2 (COVID-19) PCR, MMC NEGATIVE (NEGATIVE)
[2024-01-13] MEDS ORDERED: Ipratropium/Albuterol SulF 2.5-0.5MG/3 ML Amp INH ONE (15:45)
[2024-01-13] MEDS ORDERED: Acetaminophen 325 MG TABLET PO ONE (15:55)
[2024-01-13] MEDS ORDERED: ALBU2.5V5 INH (16:48)
[2024-01-13 17:32] VITALS: BP 111/56
== END 2024-01-13 18:01 ==
LOC: ER 13:59
PROVIDERS: Student in an Organized Health Care Education/Training Program
DX: J18.9 Pneumonia, unspecified organism (principal); J44.9 Chronic obstructive pulmonary disease, unspecified; J44.0 Chronic obstructive pulmonary disease with (acute) lower respiratory infection; R06.89 Other abnormalities of breathing; I50.9 Heart failure, unspecified; E03.9 Hypothyroidism, unspecified; E66.01 Morbid (severe) obesity due to excess calories; F17.210 Nicotine dependence, cigarettes, uncomplicated; Z88.2 Allergy status to sulfonamides; Z91.040 Latex allergy status; Z79.01 Long term (current) use of anticoagulants; Z79.899 Other long term (current) drug therapy; Z79.890 Hormone replacement therapy; Z11.52 Encounter for screening for COVID-19; Z99.81 Dependence on supplemental oxygen
CPT/HCPCS: 0241U; 71045; 71260; 80053; 83735; 83880; 84484; 85025; 93005; 93010; 94640; 94664; 99285-25; A9270; Q9967

== ENCOUNTER 2024-02-07 14:37 | Inpatient (IN) | payer MEDICARE, OTHER ==
[~2024-02-07] VITALS: Ht 162.6 cm; Wt 120.8 kg
[~2024-02-07 14:37] MED LIST changes: +ALBU2.5V5 INH; -BISA10S; -IPRAT-ALBUT 0.5-3 ML
[2024-02-07] MEDS ORDERED: ACET325 PO (15:47)
[2024-02-07 16:27] LABS: BASOPHILS ABSOLUTE AUTO 0.02 K/mm3 (0.00-0.23); BASOPHILS PERCENT AUTO 0 % (0-2); EOSINOPHILS ABSOLUTE AUTO 0.12 K/mm3 (0.00-0.68); EOSINOPHILS PERCENT AUTO 2 % (0-6); Hematocrit 38.1 % (33.0-51.0); Hemoglobin 10.9 g/dL (11.5-16.0); IMMATURE GRAN ABSOLUTE AUTO 0.05 K/mm3 (0.00-0.10); IMMATURE GRAN PERCENT AUTO 1 % (0-1); LYMPHOCYTES ABSOLUTE AUTO 0.52 K/mm3 (0.84-5.20); LYMPHOCYTES PERCENT AUTO 7 % (21-46); MONOCYTES ABSOLUTE AUTO 0.54 K/mm3 (0.16-1.47); MONOCYTES PERCENT AUTO 8 % (4-13); Mean Corpuscular HGB 28.5 pg (26.0-34.0); Mean Corpuscular HGB Conc 28.6 g/dL (31.5-36.5); Mean Corpuscular Volume 100 fL (80-100); Mean Platelet Volume 10.9 fL (9.1-12.4); NEUTROPHILS ABSOLUTE AUTO 5.73 K/mm3 (1.96-9.15); NEUTROPHILS PERCENT AUTO 82 % (41-73); Platelet Count 250 K/mm3 (150-400); RDW Standard Deviation 58.8 fL (35.1-46.3); Red Blood Cell Count 3.83 M/mm3 (3.80-5.20); White Blood Cell Count 6.98 K/mm3 (4.00-11.30)
[2024-02-07 16:53] LABS: Albumin/Globulin Ratio 0.4 (0.8-1.8); Bilirubin, Total 0.5 mg/dL (0.1-1.0); Bun/Creatinine Ratio 10.9 (12.0-20.0); Calcium, Blood 8.1 mg/dL (8.5-10.1); Creatinine, Blood 0.83 mg/dL (0.40-1.00); Globulin, Blood 4.8 g/dL (2.2-4.0); Magnesium, Blood 1.6 mg/dL (1.6-2.4); Potassium, Blood 3.2 mmol/L (3.5-5.5); Total Protein, Blood 6.8 g/dL (6.4-8.2)
[2024-02-07] MEDS ORDERED: Azithromycin 250 MG Tab PO ONE (17:30)
[2024-02-07] MEDS ORDERED: CefTRIAXone Sodium 1,000 MG in NS 100 ML IV ONE (17:30)
[2024-02-07] MEDS ORDERED: Ipratropium/Albuterol SulF 2.5-0.5MG/3 ML Amp INH ONE (17:35)
[2024-02-07 17:40] LABS: Influenza A, PCR NEGATIVE (NEGATIVE); Influenza B, PCR NEGATIVE (NEGATIVE); Resp Syncytial Virus, PCR NEGATIVE (NEGATIVE); SARS-Cov-2 (COVID-19) PCR, MMC NEGATIVE (NEGATIVE)
[2024-02-07] MEDS ORDERED: OxyCODONE HCL 5 MG TAB PO ONE (17:45)
[2024-02-07] MEDS ORDERED: HYDROmorphone HCl/Pf 1MG SYR IV ONE ×2 (18:10→19:35)
[2024-02-07] MEDS ORDERED: Ondansetron HCl 2 MG / ML 2ML Vial IV PRN (19:15)
[2024-02-07] MEDS ORDERED: Ipratropium/Albuterol SulF 2.5-0.5MG/3 ML Amp INH PRN (19:15)
[2024-02-07] MEDS ORDERED: FLU VACC TS2024-25(6MOS UP)/PF 45 MCG/0.5 ML SYRINGE IM ONE (19:15)
[2024-02-07] MEDS ORDERED: Potassium Chl 20MEQ/Water100ML 100 ML IV SCH (20:00)
[2024-02-07] MEDS ORDERED: Enoxaparin 40 MG/0.4 ML SYR SC SCH (20:00)
[2024-02-07] MEDS ORDERED: NS 250 ML IV PRN (22:00)
--- NOTE | 2024-02-07 22:00 | NUR ---
UPDATE THIS RN BREAK NURSE FOR PRIMARY RN. CALLED FOR REPORT AT 2124, REPORT FROM MIRI CHASE. UPDATED PRIMARY RN UPON RETURN.
[2024-02-07] MEDS ORDERED: Polyethylene Glycol 3350 17 gm PO PRN (23:45)
[2024-02-07] MEDS ORDERED: Albuterol 2.5 MG/3 ML VIAL INH PRN (23:50)
[2024-02-07] MEDS ORDERED: Acetaminophen 325 MG TABLET PO PRN (23:55)
[2024-02-07] MEDS ORDERED: Bisacodyl 10 MG Supp PR PRN (23:55)
[2024-02-08] MEDS ORDERED: Mometasone/Formoterol MDI 100/5 mcg 13 GM INH SCH (00:10)
[2024-02-08] MEDS ORDERED: Ipratropium Bromide INH 0.02% 0.5 mg/2.5ML Vial INH SCH (00:15)
[2024-02-08] MEDS ORDERED: Albuterol 2.5 MG/3 ML VIAL INH PRN (00:45)
[2024-02-08] MEDS ORDERED: DiphenhydrAMINE HCl 50 MG/ML 1ML Vial IV ONE (04:05)
[2024-02-08 04:51] VITALS: BP 104/71
--- NOTE | 2024-02-08 05:54 | NUR ---
SHIFT SUMMARY PATIENT IS ALERT AND ORIENTED. PATIENT HAS HAD NO ACUTE EVENTS THIS SHIFT. PATIENT IS A RECENT ADMIT THIS SHIFT. PATIENT HAS HAD IV POTASSIUM INFUSED ORDERED. PATIENT HAS DEVELOPED A REACTION TO POSSIBLE IV ABX. DR IS AWARE AND ORDERED BENDRYL. PATIENT IS ON BIPAP AND IS TOLERATING SO FAR. PATIENT HAS NOT COMPLAINED OF PAIN, SOB, NAUSEA OR VOMITTING THIS SHIFT. BED IN LOCKED AND LOWEST POSITION. CALL LIGHT IN PLACE. WILL MONITOR UNTIL SHIFT CHANGE.
[2024-02-08] MEDS ORDERED: Pantoprazole Sodium 40 MG Tab PO SCH (06:00)
[2024-02-08] MEDS ORDERED: Levothyroxine Sodium 0.15 MG Tab PO SCH (06:00)
[2024-02-08] MEDS ORDERED: Lactobacil 2-S.Thermo-Bifido 1 1 Cap PO SCH (09:00)
[2024-02-08] MEDS ORDERED: Sennosides 8.6 MG Tab PO SCH (09:00)
[2024-02-08] MEDS ORDERED: Apixaban 5 MG Tab PO SCH (09:00)
[2024-02-08] MEDS ORDERED: Venlafaxine HCl 75 MG CapCR PO SCH (09:00)
[2024-02-08] MEDS ORDERED: Furosemide 40 MG Tab PO SCH (09:00)
[2024-02-08] MEDS ORDERED: Carbamide Peroxide Otic Soln BOTHEARS SCH (09:00)
[2024-02-08] MEDS ORDERED: Metoprolol Tartrate 25 MG Tab PO SCH (09:00)
[2024-02-08] MEDS ORDERED: Furosemide 10 MG/ML 4ML Vial IV SCH ×2 (09:00)
[2024-02-08 10:04] LABS: BASOPHILS ABSOLUTE AUTO 0.03 K/mm3 (0.00-0.23); BASOPHILS PERCENT AUTO 0 % (0-2); EOSINOPHILS PERCENT AUTO 2 % (0-6); Hematocrit 42.8 % (33.0-51.0); Hemoglobin 12.4 g/dL (11.5-16.0); IMMATURE GRAN ABSOLUTE AUTO 0.06 K/mm3 (0.00-0.10); IMMATURE GRAN PERCENT AUTO 1 % (0-1); LYMPHOCYTES ABSOLUTE AUTO 0.47 K/mm3 (0.84-5.20); LYMPHOCYTES PERCENT AUTO 4 % (21-46); MONOCYTES ABSOLUTE AUTO 0.37 K/mm3 (0.16-1.47); MONOCYTES PERCENT AUTO 3 % (4-13); Mean Corpuscular HGB 28.4 pg (26.0-34.0); Mean Corpuscular Volume 98 fL (80-100); Mean Platelet Volume 10.6 fL (9.1-12.4); NEUTROPHILS ABSOLUTE AUTO 9.66 K/mm3 (1.96-9.15); NEUTROPHILS PERCENT AUTO 89 % (41-73); Platelet Count 243 K/mm3 (150-400); RDW Coefficient Variation 16.1 % (11.7-14.2); RDW Standard Deviation 58.4 fL (35.1-46.3); Red Blood Cell Count 4.36 M/mm3 (3.80-5.20); White Blood Cell Count 10.79 K/mm3 (4.00-11.30)
[2024-02-08 10:30] LABS: Albumin, Blood 2.1 g/dL (3.4-5.0); Albumin/Globulin Ratio 0.4 (0.8-1.8); Bilirubin, Total 0.6 mg/dL (0.1-1.0); Calcium, Blood 8.1 mg/dL (8.5-10.1); Creatinine, Blood 0.84 mg/dL (0.40-1.00); Globulin, Blood 4.9 g/dL (2.2-4.0); Potassium, Blood 3.4 mmol/L (3.5-5.5)
[2024-02-08] MEDS ORDERED: Potassium Chloride 20 MEQ TabCR PO ONE (11:55)
[2024-02-08 12:47] LABS: PCO2 Venous 86.4 mmHg (38-42); pH Blood Venous 7.37 (7.34-7.37)
[2024-02-08 12:49] LABS: Base Excess Venous 24.6 mmol/L; Bicarbonate Venous 44.4 mmol/L (24.0-30.0)
--- NOTE | 2024-02-08 13:16 | NUR ---
WHEN I CAME ONTO SHIFT AND WAS GETTING BEDSIDE SHIFT REPORT I WAS TOLD IN REPORT THAT PATIENT WAS GETTING NASAL CANNULA AT 6LPM. OXYGEN GAUGE RED 9 AND THIS RN TURNED DOWN TO 6. PATIENT ON BIPAP AT THAT TIME. WHEN PATIENT WOKE UP; BIPAP TAKEN OFF AND NASAL CANNULA PLACED AT 6LPM. PATIENT WAS ABLE TO DRINK SOME FLUIDS AND TAKE HER MEDICATIONS. PATIENT FELL ASLEEP AND SET OFF CONTINOUS PULSE OX SHOWING A OXYGEN READING OF 82 PERCENT. BIPAP WAS PLACED ON PATIENT BY THIS RN AND PATIENT'S OXYGEN CAME BACK UP TO 95%. PATIENT SOMULENT; LETHARGIC HAVING DIFFICULTY KEEPING EYES OPEN. REPONSES TO VERBAL STIMULI, BUT CONTINUES TO HAVE DIFFICULTY OPENING EYES. DOES SQUEEEZE HAND AND VERBALLY REPONSE BY "[facility] SAW THAT PATIENT'S CO2 ON LABS WAS ELEVATED AND CALL MADE TO DR. MONROY ABOUT ADDING A VBG. VBG ORDERED AND DRAWN; SHOWING ELEVATED PCO2 86.4; CALLED AND NOTIFIED RT. RT REPORTS THAT PATIENT IS POSSIBLY BEING OVER OXYGENATED AND I REPORTED TO RT THAT HER NASAL CANNULA SETTINGS WERE AT 9 LPM WHEN I GOT ON THIS MORNING, BUT UNSURE HOW LONG SHE WAS USING IT AT THAT SETTING. RT MADE CHANGES TO PATIENT'S BIPAP BASED ON VBG READINGS. PATIENT CONTINUES TO BE LETHARGIC AND SOMULENT. SHE DID WAKE UP; EYES OPEN ASKING FOR KLENEX AND WAS ABLE TO DRINK SOME FLUIDS AND TAKE SOME PILLS. PATIENT ASKED IF SHE WANTED A BREAK FROM THE BIPAP AND WEAR THE NASAL CANNULA FOR A BIT AND PATIENT STATED TO CONTINUE WITH THE MASK. WITHOUT THE BIPAP PATIENT'S O2% WILL DROP INTO THE 80'S LOW 79%. PATIENT CURRENTLY IN BED, SEMI RODRIGUEZ'S POSITIONG; PILLOWS ON R SIDE. O2% AT91% ON FIO2 OF 30%. I DID CALL AND SPEAK WITH PATIENT'S SISTER FLORESITA AT 1205 AND GAVE AN UPDATE.
[2024-02-08 15:16] VITALS: BP 92/76
--- NOTE | 2024-02-08 15:29 | NUR ---
DR. MONROY NOTIFIED OF PATIENT'S LABS AND THAT SHE HAS BEEN MORE SOMNULENT/LETHARGIC THIS AFTERNOON. PATIENT'S SISTER IN ROOM AND REQUEST TO SEE DR. MONROY; DR. MONROY NOTIFIED.
[2024-02-08] MEDS ORDERED: CefTRIAXone Sodium 1,000 MG in NS 100 ML IV SCH (18:00)
[2024-02-08] MEDS ORDERED: Azithromycin 500 MG in NS 250 ML IV SCH (18:00)
--- NOTE | 2024-02-08 18:00 | NUR ---
SHIFT SUMMARY: PATIENT HAS BEEN ON BIPAP MAJORITY OF THE SHIFT. SEE OTHER NURSE NOTES. DR. MONROY CAME BY AND SAW PATIENT AFTER THIS RN CALLED AND GAVE HIM AN UPDATE ON THE PATIENT. AFTER DR. MONROY EVALUATED THE PATIENT HE DECIDED TO SEND PATIENT TO PCU. DR. CHARLES CAME AND CONSULTED THE PATIENT WELL; PATIENT WOKEN DURING HIS VISIT AND A CONVERSATION WITH THE PATIENT AND HER SISTER FLORESITA WAS HAD ABOUT THE PATIENT'S CONDITION AND THE CONCERNS WITH HER RECEIVING OPIATES/NAROTICS. PATIENT AND SISTER EXPRESSED THAT THE PATIENT HAS BEEN TAKING NORCO 5/325 MG QID FOR 10 YEARS AND THAT IS WHAT HELPS HER PAIN. THE RISK OF TAKING THESE MEDICATIONS WITH THE PATIENT'S CURRENT CONIDITION EXPLAINE BY DR. CHARLES AND PATIENT AND SISTER VOICED UNDERSTANDING AND STATED THAT THE PATIENT WISHES TO BE PAIN FREE/HAVE PAIN BE MANAGED. WE WENT INTO THE DISUSSION OF CODE STATUS FULL CODE VERSUS DNR/DNI. PATIENT AND SISTER STATED THAT THE PATIENT HAS A POLST AT HOME THAT THE "MIDDLE ONE" IS SELECTED ON THE POLST; CONFIRMED BY SHOWING A BLANK POLST FORM THAT IT IS SELECTIVE MEASURES. PATIENT AND PATIENT'S SISTER STATE THE THE PATIENT IS DNR NOT FULL CODE AND REQUEST THE IT BE UPDATED IN THE PATIENT'S CHART HERE. CALL MADE TO DR. MONROY AND HE WAS NOTIFIED. PATIENT HAS BEEN AWAKE SINCE DR. CHARLES CAME BY, REQUEST TO EAT, SWITCHED TO NASAL CANNULA AND HAS BEEN MAINTAIN OXYGEN SATURATION GREATER THAN 90% ON 6 LPM. PATIENT ABLE TO HAVE CONVERSATION AND MAKE NEEDS KNOWN; EATING AND DRINKING. PATIENT AND SISTER NOTIFIED OF PLAN OF MOVING TO [facility]; AGREEABLE WITH PLAN. PATIENT'S SISTER FLORESITA LEFT. PATIENT IN BED; HIGH FOWLERS, CALL LIGHT WITHIN REACH, NO SIGNS OR SYMPTOMS OF DISTRESS, OR EVENTS OF TELE, PUREWICK IN PLACE AFTER INCONTINENT VOID THIS A.M, BUT HAS NOT VOIDED SINCE PUREWICK PLACEMENT, SHE HAS BEEN WEARING THE BIPAP ALMOST THE ENTIRE SHIFT, WITH MINIMAL TO NO ORAL INTAKE, PATIENT GETTING IV LASIX, AND ANTIBIOTICS,PLAN OF CARE ONGOING.
--- NOTE | 2024-02-08 18:19 | NUR ---
CALLED AND GAVE REPORT TO SOCORRO CHERY IN PCU
[2024-02-08] MEDS ORDERED: Ipratropium/Albuterol SulF 2.5-0.5MG/3 ML Amp INH SCH (19:15)
[2024-02-08 20:00] VITALS: BP 98/61
[2024-02-08 23:48] VITALS: BP 101/66
[2024-02-09] VITALS (7 sets, daily range): BP systolic 95–116; BP diastolic 50–76
[2024-02-09 04:16] LABS: Calcium, Blood 7.9 mg/dL (8.5-10.1); Creatinine, Blood 0.78 mg/dL (0.40-1.00); Potassium, Blood 3.4 mmol/L (3.5-5.5)
--- NOTE | 2024-02-09 06:44 | NUR ---
SHIFT SUMMARY PT REMAINS A&O X 3-4; SOME FORGETFULNESS NOTED T/O THE NIGHT BUT ABLE TO BE REDIRECTED. VSS; SBP 98 - 110, HRR AFIB IN 80 - 90'S, AFEBRILE, SPO2 92 - 95% ON BIPAP AND NC. PT ON BIPAP MOST OF THE SHIFT, ALTHOUGH DID HAVE BREAKS IN BETWEEN WITH 5 LPM NC. SETTINGS ON BIPAP 20/10 WITH 30 % FIO2. PT REPORTS FEELING "BETTER", DENIES DYSPNEA. PT DENIES CP/PRESSURE, PALPITATIONS, N/C, DIZZINESS. OF NOTE, ON TELE, PT HAD RUNS OF VTACH X2; ONE 14 BEATS AND THE OTHER 7 BEATS. PT ASYMPTOMATIC AND ASLEEP WHEN OCCURRED. PT WITH REDNESS TO COCCYX AND POSSIBLE OLD INJURY, MEPILEX PLACED, PICTURES IN CHART. PT ALSO WITH RASH OVER MOST OF HER BODY, PT UNSURE OF WHEN IT STARTED OR WHY SHE GOT IT. DOES C/O OF MILD PAIN WITH RASH. PT WITH REDNESS AND YEAST TO SKIN FOLDS. PT DECLINED BEDBATH BUT ALLOWED LINEN AND GOWN CHANGE. REPOSITIONED Q2 OR PT ALLOWED/REQUESTED. PT INCONTINENT, ATTENDS AND PUREWICK IN PLACE; 300 MLS UOP AND ATTENDS SATURATED X1. NO BM. ABLE TO MAKE NEEDS KNOWN, CALL LIGHT IN REACH. WILL UPDATE ONCOMING RN.
[2024-02-09] MEDS ORDERED: Potassium Chloride 20 MEQ TabCR PO ONE (07:55)
[2024-02-09] MEDS ORDERED: Magnesium Sulf 2 GM/Water 50ML 50 ML IV STA (08:53)
--- NOTE | 2024-02-09 10:32 | NUR ---
AM NOTE: PATIENT ALERT AND ORIENTED X3. FORGETFUL AND AT TIMES NONSENSICAL STATEMENTS. MOVING ALL EXTREMITIES IN BED. LIFT PATIENT. EVANS ROM TO BILATERAL LOWER EXTREMITIES AND LEFT SHOULDER (HX: ROTATOR CUFF INJURY). Q2 TURNING AND NEEDED. PATIENT STATES SHE HAS INTERMIT LOWER BACK SORENESS. DENIES PAINS THIS AM. TELE SHOWING AFIB WITH HR 70-110'S. SBP 90-110'S. DENIES CHEST PAIN/PRESSURE/PALPITATIONS. IV MAG INFUSING AT THIS TIME. PPP. EDEMA NOTED TO BLE. WEARING BIPAP WHEN SLEEPING AT 20/10 AND 30% FIO2. WHEN OFF BIPAP WEARING 5L HIGH FLOW NASAL CANNULA SATING LOW-MID 90'S. FINE WHEEZE HEARD THIS AM ON RIGHT UPPER LUNG. RESPIRATORY IN TO GIVE BREATHING TREATMENTS. DENIES SOB. OCCASIONAL MOIST SOUNDING COUGH. EVEN AND UNLABORED RESPIRATIONS. BOWEL TONES PRESENT. TOLERATING PO DIET. DENTURES IN ROOM WITH PATIENT LABEL. ATTENDS IN PLACE. KAHLIL URINE DRAINING VIA PUREWICK. DENIES ABDOMINAL PAIN/NAUSEA. SKIN OVERALL RED WITH SCATTERED RASH. PATIENT STATES RASH IS ITCHY AND AT TIMES GRANT. DR. MONROY AWARE OF RASH AND PICTURES IN CHART. REDNESS AND EXCORIATION IN ASHLEY AREA/GROIN. REDNESS TO ABDOMINAL FOLDS, BREASTS AND ARMPITS. BED BATH THIS AM. OLD PRESSURE WOUND SEEN ON COCCYX, SEE CHART PHOTOS. NO OPEN SPOTS NOTED ON COCCYX, MEPILEX REPLACED AND Q2 TURNING. CALL LIGHT IN REACH. PATIENT RESTING IN BED AT THIS TIME WITH BIPAP IN PLACE.
[2024-02-09] MEDS ORDERED: Amoxicillin/Clavulanate K 875 MG Tab PO SCH (12:00)
[2024-02-09] MEDS ORDERED: HYDROcodone 5-APAP 325 TAB PO PRN (12:30)
--- NOTE | 2024-02-09 13:41 | NUR ---
SISTER DEVYNNA AT BEDSIDE. UPDATED BY THIS RN. PATIENT ATE LUNCH AND VISITED WITH SISTER FOR AWHILE. VITAL SIGNS REMAIN STABLE. PATIENT COMPLAINING OF BACK PAIN AND REQUEST HOME PAIN MEDS. THIS RN PLACED CALL TO DR. MONROY. ORDERS FOR 5/325 NORCO Q8 PRN FOR PAIN. ORDERS IN PLACE AND MEDICATED FOR PAIN.
--- NOTE | 2024-02-09 17:47 | NUR ---
SHIFT SUMMARY: PATIENT REMAINS ALERT AND ORIENTED. USING BIPAP INTERMIT FOR NAPS. EATING DINNER AT THIS TIME ON 2-3L NASAL CANNULA SATING LOW-MID 90'S. TELE CONTINUES TO SHOW AFIB WITH HR 70-110'S. IMPROVED BACK PAIN POST NORCO ADMINISTRATION THIS AFTERNOON. Q2 TURNING AND NEEDED. BED BATH COMPLETED THIS SHIFT. PW IN PLACE. SISTER FLORESITA AND STAFF FROM [facility] IN TO VISIT THIS SHIFT. CALL LIGHT IN REACH. DENIES NEEDS.
[2024-02-10] VITALS (8 sets, daily range): BP systolic 89–110; BP diastolic 52–72
[2024-02-10 04:13] LABS: Bun/Creatinine Ratio 16.9 (12.0-20.0); Calcium, Blood 7.6 mg/dL (8.5-10.1); Creatinine, Blood 0.89 mg/dL (0.40-1.00); Magnesium, Blood 1.5 mg/dL (1.6-2.4); Potassium, Blood 3.5 mmol/L (3.5-5.5)
--- NOTE | 2024-02-10 06:03 | NUR ---
SHIFT SUMMARY PT REMAINS A&O X3-4. VSS; SBP ON SOFT SIDE IN 100 - 1 TEENS BUT STABLE, HRR AFIB IN 80 - 90'S, TEMP MAX 99.1, SPO2 91 - 96% ON 2 LPM NC AND BIPAP 20/10, WITH 30% FIO2. PT BACK AND FORTH BETWEEN NC AND BIPAP MASK. PT CONTINUES TO HAVE RASH T/O BODY, BUT DOES NOT SEEM TO BE WORSENING. PT C/O PAIN THROUGH OUT BODY WELL PAIN RELATED TO RASH. ATTENDS AND PUREWICK IN PLACE. NO BM THIS SHIFT. PT REPOSITIONED Q2 OR PT ALLOWED. PT OCCASSIONALLY WILL DECLINE TURNS, EDUCATION ON PRESSURE INJURY PREVENTION PROVIDED. PT VERBALIZES UNDERSTANDING. NO ACUTE EVENTS OVERNIGHT. ABLE TO MAKE NEEDS KNOWN, CALL LIGHT IN REACH. WILL UPDATE ONCOMING RN.
[2024-02-10] MEDS ORDERED: Mag Sulfate 1 GM/D5% 100ML 100 ML IV STA ×2 (07:53→13:38)
[2024-02-10] MEDS ORDERED: Doxycycline Hyclate 100 MG TAB PO SCH (09:00)
[2024-02-10] MEDS ORDERED: Torsemide 20 MG TAB PO SCH (09:00)
--- NOTE | 2024-02-10 10:37 | NUR ---
AM NOTE: PATIENT ALERT AND ORIENTED. COOPERATIVE WITH STAFF AND MAKING JOKES. COMPLAINS OF CHRONIC LEG SORENESS, MEDICATED PER EMAR. LIFT PATIENT. PATIENT STATES SHE HAS NOT "USED THESE LEGS IN YEARS". BED BATH GIVEN THIS AM. Q2 TURNING AND NEEDED. TELE SHOWING AFIB WITH HR 80-120'S. SBP 110'S. PPP. IV MAG INFUSED PER EMAR THIS AM. DENIES CHEST PAIN/PRESSURE/PALPITATIONS. IV SALINE LOCKED AT THIS TIME. WEARING BIPAP DURING NOC AND DAYTIME NAPS AT 20/10 AND 30% FIO2. WEARING 2-3L NASAL CANNULA WHEN OFF BIPAP SATING 90-93%. OCCASIONAL WET/MOIST SOUNDING COUGH. EVEN AND UNLABORED RESPIRATIONS. LUNGS SOUNDS COARSE WITH DIMINISHED BASES. BOWEL TONES PRESENT IN ALL FOUR QUADRANTS. DENIES ABDOMINAL PAIN/NAUSEA. TOLERATING PO DIET. DENTURES. PUREWICK AND ATTENDS IN PLACE. ASHLEY CARE THIS AM WITH NEW PUREWICK. URINE YELLOW/KAHLIL COLORING. SKIN OVERALL RED FROM RECENT RASH, SLIGHTLY IMPROVED. ASHLEY AREA RED AND EXCORIATED. CREAMS APPLIED AND SKIN CLEANED WITH AM BED BATH. OLD PRESSURE WOUND ON COCCYX. MEPILEX PLACED FOR PREVENTION. DR. MONROY AT BEDSIDE THIS AM FOR PROVIDER ROUNDING. NO NEW ORDERS FOR THIS RN. CALL LIGHT IN REACH. DENIES NEEDS AT THIS TIME. RESTING IN BED WATCHING TV.
--- NOTE | 2024-02-10 14:05 | NUR ---
TRANSFER OF CARE AT THIS TIME TO [facility] AND [facility]. NO ACUTE CHANGES. SISTER FLORESITA AT BEDSIDE AND UPDATED ON PLAN OF CARE.
--- NOTE | 2024-02-10 14:56 | NUR ---
ASSUMED CARE @ APPROX 1330 RECIVIED REPORT FROM SOCORRO Ramirez RN, DID BEDSIDE SHIFT REPORT, PT ABLE TO MAKE NEEDS KNOWN, NO SIGNS OF DISTRESS, CARE ONGOING, CALL LIGHT IN REACH, FAMILY AT BEDSIDE.
[2024-02-10] MEDS ORDERED: AcetaZOLAMIDE 250 MG Tab PO SCH (18:00)
--- NOTE | 2024-02-10 18:22 | NUR ---
SHIFT SUMMARY PT A&O X3-4, FORGETFUL AT TIMES, ABLE TO MOVE ALL EXTREMITIES, OBEYS COMMANDS, ABLE TO MAKE NEEDS KNONW, CALL LIGHT IN REACH. CONTINOUS CARDIAC MONITORING, RHYTHM AFIB 70'S-110'S, BP STABLE WITH MAP GREATHR THAN 65. CONTINOUS SPO2, SPO2 DROPS WHEN PT IS COUGHING, PRODUCTIVE COUGH WITH THICK MUCUS, RECOVERS QUICKLY, PT ON 2L O2 VIA NC, LUNGS SOUND CORASE AND DIM WITH EXPRITORY WHEEZING, NO SIGNS OF RESPITORY DISTRESS. PUREWICK IN PLACE TO LOW SUCTION. PT REPORTING PAIN IN BACK AND BOTTOM, MEDICATED PER EMAR AND REPOSITIONED. AWAITING TO GIVE REPORT TO ONCOMING RN, PLAN OF CARE ONGOING.
[2024-02-10] MEDS ORDERED: Linezolid 600 MG Tab PO SCH (21:00)
[2024-02-11 03:58] VITALS: BP 105/63
--- NOTE | 2024-02-11 05:25 | NUR ---
SHIFT SUMMARY PATIENT ALERT AND ORIENTED X3, UNSURE OF DATE. SHE HAS GENERALIZED WEAKNESS REQUIRING A LIFT TRANSFER. PATIENT HAD NO COMPLAINTS OF PAIN OR SHORTNESS OF BREATH, ON 2 LITERS O2 VIA NC WHILE AWAKE AND BIPAP FOR SLEEP. VITAL SIGNS STABLE. NO ACUTE ISSUES NOTED OVERNIGHT. WILL CONTINUE TO MONITOR. CALL LIGHT WITHIN REACH
[2024-02-11 06:32] LABS: Creatinine, Blood 0.94 mg/dL (0.40-1.00); Potassium, Blood 4.5 mmol/L (3.5-5.5)
[2024-02-11 07:41] VITALS: BP 100/65
[2024-02-11] MEDS ORDERED: SOAANZ20 M1 PO (08:27)
[2024-02-11] MEDS ORDERED: LINE600 PO (08:30)
[2024-02-11] MEDS ORDERED: DULERA 100 MCG/13 GM INH (08:32)
[2024-02-11 08:56] VITALS: BP 115/70
[2024-02-11 12:24] VITALS: BP 101/78
[2024-02-11 15:55] VITALS: BP 94/72
--- NOTE | 2024-02-11 17:50 | NUR ---
SHIFT SUMMARY PT A&O X4, KNOWING SELF, , PLACE, YEAR, AND REASON FOR COMING INTO THE HOSPITAL, PT OBEYS COMMANDS, ABLE TO MAKE NEEDS KNOWN. CONTINOUS SPO2, SPO2 GREATER THAN 90% T/O MOST OF SHIFT ON 1-2L O2 VIA NC, PT HAD EPISODE OF DESATURATION INTO THE MID 70'S DURING A BREATHING TREATMENT/PT INSTRUCTED TO TAKE BREATH THROUGH THEIR NOSE AND RECOVRED TO SPO2 GREATER THEN 90'S , LUNG SOUND DIM AND CORASE WITH EXTRATORY WHEEZE. PUREWICK IN PLACE CONNECTED TO LOW SUCTION. PT DID NOT HAVE A BM THIS SHIFT, BOWEL CARE GIVEN, OFFERED SUPOSITORY AND PT DECLINED. PT HAS EXCORIATION ON BOTTOM, MEPILEX REPLACED. PT AWAITING DISCHARG TO [facility] NEEDING AN ISOLATION ROOM. SISTER FLORESITA UPDATED. PLAN OF CARE ONGOING, CALL LIGHT IN REACH, WATING TO GIVE REPORT TO ONCOMING RN.
[2024-02-11 19:59] VITALS: BP 102/52
[2024-02-12 03:20] VITALS: BP 130/58
--- NOTE | 2024-02-12 06:18 | NUR ---
SHIFT SUMMARY PATIENT ALERT AND ORIENTED X4. HAD NO COMPLAINTS OF PAIN OR SHORTNESS OF BREATH. CONTINUES ON 1-2 LITERS O2 VIA NC WHILE AWAKE, WORE BIPAP FOR SLEEP SETTINGS 20/10 30% FIO2. NO ACUTE ISSUES NOTED OVERNIGHT. WILL CONTINUE TO MONITOR. CALL LIGHT WITHIN REACH.
[2024-02-12 08:00] VITALS: BP 149/79
--- NOTE | 2024-02-12 11:37 | NUR ---
DISCHARGE SUMMARY PT A&Ox4, CALLS AND COMMUNICATES NEEDS APPROPRIATELY. BP STABLE, NO TELE, HR 60's, DENIES CP/PRESSURE. SpO2> 92% 4L VIA NC, DENIES SOB. MANAGED PT's C/O CHRONIC PAIN PER EMAR. PT TRANSFERED TO TRANSPORT WHEELCHAIR VIA LIFT. ALL PT BELONGINGS WITH PT WHEN THEY LEFT AT APPROXIMATELY 1140. REPORT GIVEN TO [facility] .
== END 2024-02-12 11:36 | DRG 177 ==
LOC: ER 14:37 → PCU 19:10 → ERHOLD 19:10 → MEDS 19:10 → PCU 02-08 18:54
PROVIDERS: Internal Medicine; Student in an Organized Health Care Education/Training Program; ADMIT Internal Medicine
PROC: 5A09357 Assistance with Respiratory Ventilation, Less than 24 Consecutive Hours, Continuous Positive Airway Pressure (ICD-10-PCS; principal; 2024-02-07)
DX: J15.69 Pneumonia due to other Gram-negative bacteria (principal); I50.33 Acute on chronic diastolic (congestive) heart failure; J96.22 Acute and chronic respiratory failure with hypercapnia; J96.21 Acute and chronic respiratory failure with hypoxia; E66.2 Morbid (severe) obesity with alveolar hypoventilation; I11.0 Hypertensive heart disease with heart failure; Z66 Do not resuscitate; G89.29 Other chronic pain; M54.9 Dorsalgia, unspecified; Z28.21 Immunization not carried out because of patient refusal; E03.9 Hypothyroidism, unspecified; C55 Malignant neoplasm of uterus, part unspecified; I48.0 Paroxysmal atrial fibrillation; Z88.2 Allergy status to sulfonamides; Z91.040 Latex allergy status; Z79.899 Other long term (current) drug therapy; Z79.01 Long term (current) use of anticoagulants; Z79.890 Hormone replacement therapy
CPT/HCPCS: 0241U; 36415; 71045; 80048; 80053; 82803; 83735; 83880; 84145; 84443; 84484; 85025; 87070; 87077; 87147; 87186; 87205; 93005; 93010; 93306; 94640; 94660; 94664; 94762; 96365; 96375; 99285-25; A9270; J0456; J0696; J1200; J1650; J1940; J3475; J3480; J7050

== ENCOUNTER 2024-06-15 01:31 | Day surgery (SDC) | payer MEDICARE, OTHER ==
[~2024-06-15 01:31] MED LIST changes: +ACET325 PO; +DULERA 100 MCG/13 GM INH; +LINE600 PO; +SOAANZ20 M1 PO
== END 2024-06-15 23:00 | disposition home or self-care (01) ==
LOC: WOUND 01:31
DX: L12.0 Bullous pemphigoid (principal)
CPT/HCPCS: G0463